=== PATIENT | female | born 1945 | race Two or more races ===

== ENCOUNTER 2016-07-19 10:04 | Emergency (ER) | payer MEDICARE ==
[2016-07-19 10:18] VITALS: BP 137/61
--- NOTE | 2016-07-19 10:50 | ER Document Report ---
ED Skin Rash/Insect Bite/Abscs - General Chief Complaint: Rash Stated Complaint: POSSIBLE RASH Time Seen by Provider: 07/19/16 10:34 Notes: 71 yo female c/o rash under breasts, anticubital areas, inguinal area and lower legs. treated with diflucan and nystatin by urgent care last week, with no improvement TRAVEL OUTSIDE OF THE [place] IN LAST 30 DAYS: No - HPI Patient complains to provider of: Skin rash/lesion Onset: Last week Onset/Duration: Persistent Quality of pain: Burning, Other - itching Severity: Moderate Skin Character: Rash Skin Temperature: Warm Quality of rash: Itchy, Burning Identify cause: No Similar symptoms previously: Yes Recently seen / treated by doctor: Yes - urgent care - Related Data Allergies/Adverse Reactions: No Known Allergies Allergy (Verified 07/19/16 10:07) Past Medical History - General Information source: Patient - Social History Smoking Status: Never Smoker Chew tobacco use (# tins/day): No Frequency of alcohol use: None Drug Abuse: None Lives with: Family Family History: Reviewed & Not Pertinent Patient has suicidal ideation: No Patient has homicidal ideation: No - Past Medical History Cardiac Medical History: Reports: Hx Coronary Artery Disease - HIGH CHOL, Hx Hypercholesterolemia, Hx Hypertension Denies: Hx Heart Attack Pulmonary Medical History: Denies: Hx Asthma, Hx Bronchitis, Hx COPD, Hx Pneumonia Neurological Medical History: Denies: Hx Cerebrovascular Accident, Hx Seizures Endocrine Medical History: Reports: Hx Diabetes Mellitus Type 1, Hx Diabetes Mellitus Type 2 Renal/ Medical History: Denies: Hx Peritoneal Dialysis GI Medical History: Reports: Hx Gastroesophageal Reflux Disease Musculoskeltal Medical History: Reports Hx Arthritis Psychiatric Medical History: Reports: Hx Depression Past Surgical History: Reports: Hx Cardiac Catheterization - stent x1, Hx Section - x3, Hx Coronary Stent, Hx Tubal Ligation. Denies: Hx Hysterectomy - Immunizations Hx Diphtheria, Pertussis, Tetanus Vaccination: Yes - 2009 Hx Pneumococcal Vaccination: 02/26/11 Review of Systems - Review of Systems Constitutional: No symptoms reported EENT: No symptoms reported Cardiovascular: No symptoms reported Respiratory: No symptoms reported Gastrointestinal: No symptoms reported Genitourinary: No symptoms reported Female Genitourinary: No symptoms reported Musculoskeletal: No symptoms reported Skin: No symptoms reported Hematologic/Lymphatic: No symptoms reported Neurological/Psychological: No symptoms reported Physical Exam - Vital signs Vitals: Temp Pulse Resp BP Pulse Ox 98.4 F 93 20 137/61 H 97 07/19/16 10:14 07/19/16 10:14 07/19/16 10:14 07/19/16 10:14 07/19/16 10:14 Interpretation: Normal - General General appearance: Appears well, Alert - HEENT Head: Normocephalic, Atraumatic Eyes: Normal Pupils: PERRL - Respiratory Respiratory status: No respiratory distress Chest status: Nontender Breath sounds: Normal Chest palpation: Normal - Cardiovascular Rhythm: Regular Heart sounds: Normal auscultation Murmur: No - Abdominal Inspection: Normal Distension: No distension Bowel sounds: Normal Tenderness: Nontender Organomegaly: No organomegaly - Back Back: Normal, Nontender - Extremities General upper extremity: Normal inspection, Nontender, Normal color, Normal ROM , Normal temperature General lower extremity: Normal inspection, Nontender, Normal color, Normal ROM , Normal temperature, Normal weight bearing. No: Lauro's sign - Neurological Neuro grossly intact: Yes Cognition: Normal Orientation: AAOx4 Júnior Coma Scale Eye Opening: Spontaneous [place] Coma Scale Verbal: Oriented [place] Coma Scale Motor: Obeys Commands Júnior Coma Scale Total: 15 Speech: Normal Motor strength normal: LUE, RUE, LLE, RLE Sensory: Normal - Psychological Associated symptoms: Normal affect, Normal mood - Skin Skin Temperature: Warm Skin Moisture: Dry Skin Color: Normal Skin irregularity: Rash - bright red maculopapular rash to intertriginal skin under breasts, groin Course - Vital Signs Vital signs: Temp Pulse Resp BP Pulse Ox 98.4 F 93 20 137/61 H 97 07/19/16 10:14 07/19/16 10:14 07/19/16 10:14 07/19/16 10:14 07/19/16 10:14 Discharge - Discharge Clinical Impression: Intertrigo Condition: Stable Disposition: ADMITTED INPATIENT Instructions: Topical Steroid Cream or Ointment ([facility]), Topical Antifungal ([facility]) Additional Instructions: make cool compress with domeboro's solution, apply to affected area x 10 min TID and as needed apply steroid cream after cool compress follow up with primary care if symptoms persist Prescriptions: Calcium Acetate/Aluminum Sulf [Domeboro Packet] 1 each TP BID #30 packet Clotrimazole/Betamethasone Dip [Lotrisone Cream] 1 applic TP BID #45 g
== END 2016-07-19 11:05 | disposition home or self-care (01) ==
LOC: ER 10:04
DX: L30.4 Erythema intertrigo (principal); R21 Rash and other nonspecific skin eruption
CPT/HCPCS: 99284

== ENCOUNTER → 2016-09-05 | Outpatient (CLI) | payer MEDICARE ==
--- NOTE | 2016-09-05 14:55 | WOMENS IMAGING REPORT ---
EXAM DESCRIPTION: 3D SCREENING MAMMO BILAT COMPLETED DATE/TIME: 09/05/2016 2:09 pm REASON FOR STUDY: Z12.31, ROUTINE SCREENING MAMMO (3D) Z12.31 ENCNTR SCREEN MAMMOGRAM FOR MALIGNANT NEOPLASM OF [place] COMPARISON: 01/01/2015 and 12/10/2013. TECHNIQUE: Standard craniocaudal and mediolateral oblique views of each breast recorded using digita l acquisition and breast tomosynthesis. LIMITATIONS: None. FINDINGS: Findings present which are benign by mammographic criteria. No suspicious masses, calcifi cations or architectural distortion. Pertinent benign findings: Stable benign calcifications. Read with the assistance of CAD. .[facility] - R2 Cenova Version 1.3 .[facility] Imaging - R2 Cenova Version 1.3 .[facility] - R2 Cenova Version 2.4 .[facility] [place] [facility] - R2 Cenova Version 2.4 .ON LICENSE OF [facility] - R2 Manager Of Purchasing Version 9.2 Benign mammographic findings may include one or more of the following: Smooth masses, popcorn/rim/co arse calcifications, asymmetries, post-procedure changes, and lesions with long-standing stability. IMPRESSION: BENIGN MAMMOGRAPHIC FINDINGS. BIRADS 2 BREAST DENSITY: b. There are scattered areas of fibroglandular density. BIRAD: 2 BENIGN FINDING(S) RECOMMENDATION: RECOMMENDATION: ROUTINE SCREENING COMMENT: The patient has been notified of the results by letter per SA requirements. Additional no tification policies are in place for contacting patient with suspicious or incomplete findings. Quality ID #[id number]: The [employer] recommends an annual screening mammogram for women aged 40 years or over. This facility utilizes a reminder system to ensure that all patients receive reminder letters, and/or direct phone calls for appointments. This includes reminders for routine scr eening mammograms, diagnostic mammograms, or other Breast Imaging Interventions when appropriate. Th is patient will be placed in the appropriate reminder system. The [employer] (ACR) has developed recommendations for screening MRI of the breast s in certain patient populations, to be used in conjunction with mammography. Breast MRI surveillanc e may be appropriate for women with more than 20% lifetime risk of developing breast cancer as deter mined by genetic testing, significant family history of the disease, or history of mantle radiation f or Hodgkins Disease. ACR Practice Guidelines 2008. DBT Technology DBT is a type of tomographic mammography. With conventional mammography, overlapping breast tissue ma y make lesions difficult to detect, even with good compression. DBT uses an x-ray tube that rotates a round the breast, taking images at different angles. These images are then combined to create thin sl ices of the breast that the radiologist can view as a 3D reconstruction. The [employer] unit can perform full-field digital mammograms (2D imaging); or DBT (3D imaging); or both, in a combination mode that quickly performs both the mammogram and the tomosynthesis scan while the breast is still compressed. PQRS 6045F: Fluoroscopic imaging is not utilized for breast tomosynthesis. TECHNICAL DOCUMENTATION: FINDING NUMBER: (1) ASSESSMENT: (1) JOB ID: [id number] [employer]- All Rights Reserved
== END ==
LOC: WI 10:48
PROVIDERS: ATTEND Obstetrics & Gynecology Gynecology
DX: Z12.31 Encounter for screening mammogram for malignant neoplasm of breast (principal)
CPT/HCPCS: 77063; G0202; 77067

== ENCOUNTER 2016-10-17 13:09 | Emergency (ER) | payer MEDICARE ==
--- NOTE | 2016-10-17 13:55 | ER Document Report ---
ED Medical Screen (RME) - General Chief Complaint: Abdominal Pain Stated Complaint: BACK PAIN Time Seen by Provider: 10/17/16 13:52 Notes: Patient reports severe lower abdominal and rectal pain that started this morning. She denies vomiting. No change in eating habits. No problems with stool or urine. She states she did recently have a uterine biopsy performed approximately 2 weeks ago and had some spotting afterwards but has not had any bledding the last several days. She states she was told the results of the biopsy were normal. TRAVEL OUTSIDE OF THE [place] IN LAST 30 DAYS: No - Related Data Allergies/Adverse Reactions: No Known Allergies Allergy (Verified 10/17/16 13:36) Past Medical History - Social History Frequency of alcohol use: None Drug Abuse: None - Past Medical History Cardiac Medical History: Reports: Hx Coronary Artery Disease - HIGH CHOL, Hx Hypercholesterolemia, Hx Hypertension Denies: Hx Heart Attack Pulmonary Medical History: Denies: Hx Asthma, Hx Bronchitis, Hx COPD, Hx Pneumonia Neurological Medical History: Denies: Hx Cerebrovascular Accident, Hx Seizures Endocrine Medical History: Reports: Hx Diabetes Mellitus Type 1, Hx Diabetes Mellitus Type 2 Renal/ Medical History: Denies: Hx Peritoneal Dialysis GI Medical History: Reports: Hx Gastroesophageal Reflux Disease Musculoskeltal Medical History: Reports Hx Arthritis Psychiatric Medical History: Reports: Hx Depression Past Surgical History: Reports: Hx Cardiac Catheterization - stent x1, Hx Section - x3, Hx Coronary Stent, Hx Tubal Ligation. Denies: Hx Hysterectomy - Immunizations Hx Diphtheria, Pertussis, Tetanus Vaccination: Yes - 2009 Physical Exam - Vital signs Vitals: Temp Pulse BP Pulse Ox 98.4 F 76 132/57 H 95 10/17/16 13:34 10/17/16 13:34 10/17/16 13:34 10/17/16 13:34 Course - Vital Signs Vital signs: Temp Pulse Resp BP Pulse Ox 98.4 F 76 132/57 H 95 10/17/16 13:34 10/17/16 13:34 10/17/16 13:34 10/17/16 13:34
[2016-10-17 14:41] LABS: ABSOLUTE BASOPHILS # (AUTO) 0.1 10^3/uL (0.0-0.2); ABSOLUTE EOSINOPHILS # (AUTO) 0.1 10^3/uL (0.0-0.6); ABSOLUTE LYMPHOCYTES (AUTO) 1.6 10^3/uL (0.5-4.7); ABSOLUTE MONOCYTES (AUTO) 0.7 10^3/uL (0.1-1.4); ABSOLUTE NEUT (AUTO) 5.7 10^3/uL (1.7-8.2); BASOPHILS % (AUTO) 0.6 % (0-2); EOSINOPHILS % (AUTO) 1.6 % (0-6); HEMATOCRIT 37.4 % (36.0-47.0); HEMOGLOBIN 12.4 g/dL (12.0-15.5); HGB HCT DIFFERENCE -0.2; LYMPHOCYTES % (AUTO) 19.3 % (13-45); MEAN CORPUSCULAR HEMOGLOBIN 27.8 pg (27.0-33.4); MEAN CORPUSCULAR HGB CONC 33.1 g/dL (32.0-36.0); MEAN CORPUSCULAR VOLUME 84 fl (80-97); MONOCYTES % (AUTO) 8.9 % (3-13); RED BLOOD COUNT 4.44 10^6/uL (3.72-5.28); RED CELL DISTRIBUTION WIDTH 14.6 % (11.5-14.0); SEGMENTED NEUTROPHILS % (AUTO) 69.6 % (42-78); WHITE BLOOD COUNT 8.2 10^3/uL (4.0-10.5)
[2016-10-17 14:53] LABS: ALANINE AMINOTRANSFERASE 33 U/L (9-52); ALBUMIN 4.2 g/dL (3.5-5.0); ALKALINE PHOSPHATASE 55 U/L (38-126); ANION GAP 10 (5-19); ASPARTATE AMINO TRANSFERASE 42 U/L (14-36); BILIRUBIN,DIRECT 0.4 mg/dL (0.0-0.4); BILIRUBIN,TOTAL 0.4 mg/dL (0.2-1.3); BLOOD UREA NITROGEN 20 mg/dL (7-20); CALCIUM 10.4 mg/dL (8.4-10.2); CARBON DIOXIDE 28 mmol/L (22-30); CHLORIDE 101 mmol/L (98-107); CREATININE RESULT 0.66 mg/dL (0.52-1.25); GLUCOSE 97 mg/dL (75-110); POTASSIUM 4.6 mmol/L (3.6-5.0); SODIUM 139.3 mmol/L (137-145); TOTAL PROTEIN 7.6 g/dL (6.3-8.2)
--- NOTE | 2016-10-17 15:26 | ER Document Report ---
ED GI/ - General Chief Complaint: Abdominal Pain Stated Complaint: BACK PAIN Time Seen by Provider: 10/17/16 13:52 Mode of Arrival: Ambulatory Information source: Patient Notes: Patient is a 71-year-old female who presents to the ER today for lower abdominal pain in the center of her abdomen 1 day and feeling like she has rectal pain as well. Patient denies that it goes around to the back, states that she tried to have a bowel movement today and cannot. She is able to pass gas. She denies fevers, chills, dysuria, hematuria, history of kidney stones, history of constipation. TRAVEL OUTSIDE OF THE [place] IN LAST 30 DAYS: No - Related Data Allergies/Adverse Reactions: No Known Allergies Allergy (Verified 10/17/16 13:36) Past Medical History - General Information source: Patient - Social History Smoking Status: Never Smoker Frequency of alcohol use: None Drug Abuse: None Family History: Reviewed & Not Pertinent Patient has suicidal ideation: No Patient has homicidal ideation: No - Past Medical History Cardiac Medical History: Reports: Hx Coronary Artery Disease - HIGH CHOL, Hx Hypercholesterolemia, Hx Hypertension Denies: Hx Heart Attack Pulmonary Medical History: Denies: Hx Asthma, Hx Bronchitis, Hx COPD, Hx Pneumonia Neurological Medical History: Denies: Hx Cerebrovascular Accident, Hx Seizures Endocrine Medical History: Reports: Hx Diabetes Mellitus Type 1, Hx Diabetes Mellitus Type 2 Renal/ Medical History: Denies: Hx Peritoneal Dialysis GI Medical History: Reports: Hx Gastroesophageal Reflux Disease Musculoskeltal Medical History: Reports Hx Arthritis Psychiatric Medical History: Reports: Hx Depression Past Surgical History: Reports: Hx Cardiac Catheterization - stent x1, Hx Section - x3, Hx Coronary Stent, Hx Tubal Ligation. Denies: Hx Hysterectomy - Immunizations Hx Diphtheria, Pertussis, Tetanus Vaccination: Yes - 2009 Hx Pneumococcal Vaccination: 02/26/11 Review of Systems - Review of Systems Constitutional: No symptoms reported EENT: No symptoms reported Cardiovascular: No symptoms reported Respiratory: No symptoms reported Gastrointestinal: See HPI Genitourinary: No symptoms reported Female Genitourinary: No symptoms reported Musculoskeletal: No symptoms reported Skin: No symptoms reported Hematologic/Lymphatic: No symptoms reported Neurological/Psychological: No symptoms reported Physical Exam - Vital signs Vitals: Temp Pulse BP Pulse Ox 98.4 F 76 132/57 H 95 10/17/16 13:34 10/17/16 13:34 10/17/16 13:34 10/17/16 13:34 - Notes Notes: PHYSICAL EXAMINATION: GENERAL: Well-appearing and in no acute distress. HEAD: Atraumatic, normocephalic. EYES: Pupils equal round and reactive to light, extraocular movements intact, sclera anicteric, conjunctiva are normal. NECK: Normal range of motion, supple without lymphadenopathy LUNGS: CTAB and equal. No wheezes rales or rhonchi. HEART: Regular rate and rhythm without murmurs ABDOMEN: Soft, suprapubic tenderness. No guarding, no rebound BACK: no vertebral tenderness, normal ROM GI/: no CVA tenderness Rectal: Normal tone, stool in rectal vault, no blood EXTREMITIES: Normal range of motion, no pitting edema. No cyanosis. NEUROLOGICAL: Cranial nerves grossly intact. Normal sensory/motor exams. PSYCH: Normal mood, normal affect. SKIN: Warm, Dry, normal turgor, no rashes or lesions noted Course - Re-evaluation Re-evalutation: 10/17/16 18:04 Lab work is unremarkable today except for moderate leukocytes on urinalysis with 10 white blood cells. Will treat patient for UTI. She was given IV Rocephin And fluids here in the emergency department. Patient also has moderate stool in sigmoid colon on CAT scan which was ordered in triage. CAT scan was negative for any other acute pathology. Patient will be sent home with an enema. She said she has had to do this before. - Vital Signs Vital signs: Temp Pulse Resp BP Pulse Ox 98.4 F 76 132/57 H 95 10/17/16 13:34 10/17/16 13:34 10/17/16 13:34 10/17/16 13:34 - Laboratory Result Diagrams: 10/17/16 14:23 10/17/16 14:23 Laboratory results interpreted by me: 10/17/16 10/17/16 10/17/16 14:23 14:23 15:20 RDW 14.6 H Calcium 10.4 H AST 42 H Ur Leukocyte Esterase MODERATE H Discharge - Discharge Clinical Impression: UTI (urinary tract infection) Qualifiers: Urinary tract infection type: site unspecified Hematuria presence: without hematuria Qualified Code(s): N39.0 - Urinary tract infection, site not specified Constipation Qualifiers: Constipation type: unspecified constipation type Qualified Code(s): K59.00 - Constipation, unspecified Condition: Stable Disposition: HOME, SELF-CARE Instructions: Urinary Tract Infection ([facility]) Additional Instructions: YOU HAVE A LOT OF STOOL IN YOUR RECTUM, PLEASE USE ENEMA AT HOME FOR RELIEF. PLEASE TAKE ALL OF YOUR ANTIBIOTICS FOR YOUR UTI! Return immediately for any new or worsening symptoms. Follow up with primary care provider, call tomorrow to make followup appointment. Prescriptions: Cephalexin Monohydrate [Keflex 500 mg Capsule] 500 mg PO BID 7 Days capsule Mineral Oil 133 ml RC ONCE PRN #1 enema PRN Reason: Referrals: ETHEL ALEGRIA MD [Primary Care Provider] - Follow up as needed
[2016-10-17 15:45] LABS: APPEARANCE,URINE SLIGHTLY-CLOUDY; BILIRUBIN,URINE NEGATIVE (NEGATIVE); GLUCOSE, URINE NEGATIVE (NEGATIVE); KETONES,URINE NEGATIVE (NEGATIVE); LEUKOCYTE ESTERASE,URINE MODERATE (NEGATIVE); NITRITE,URINE NEGATIVE (NEGATIVE); PROTEIN,URINE NEGATIVE (NEGATIVE); URINE SPECIFIC GRAVITY 1.012; UROBILINOGEN,URINE NEGATIVE mg/dL (<2.0)
[2016-10-17] MEDS ORDERED: CEFTRIAXONE 1 GM/D5W RTU 1 GM/50 ML RTUPB IV ONE (16:16)
--- NOTE | 2016-10-17 16:59 | RADIOLOGY REPORT (SQ) ---
EXAM DESCRIPTION: CT ABD/PELVIS WITH IV ONLY COMPLETED DATE/TIME: 10/17/2016 4:02 pm REASON FOR STUDY: severe lower abd pain COMPARISON: CT abdomen pelvis 01/13/2008, 10/13/2008, 08/15/2013 TECHNIQUE: CT scan of the abdomen and pelvis performed using helical scanning technique with dynamic intravenous contrast injection. No oral contrast. Images reviewed with lung, soft tissue, and bone windows. Reconstructed coronal and sagittal MPR images reviewed. Delayed images for evaluation of the urinary system also acquired. All images stored on PACS. All CT scanners at this facility use dose modulation, iterative reconstruction, and/or weight based d osing when appropriate to reduce radiation dose to as low as reasonably achievable (ALARA). [facility]: Dose Right [facility]: CareDose [facility]: Dose Right [facility]: Teradose 4D [facility]: Soluble Systems CONTRAST TYPE AND DOSE: contrast/concentration: Isovue 370.00 mg/ml; Total Contrast Delivered: 137.9 ml; Total Saline Delivered: 84.0 ml RENAL FUNCTION: Creatinine 0.66 RADIATION DOSE: Up-to-date CT equipment and radiation dose reduction techniques were employed. CTDIv ol: 9.2 - 13.1 mGy. DLP: 1188 mGy-cm.. LIMITATIONS: No oral contrast FINDINGS: LOWER CHEST: No significant findings. No nodules or infiltrates. LIVER: Normal size. No masses. No dilated ducts. SPLEEN: Normal size. No focal lesions. PANCREAS: No masses. No significant calcifications. No adjacent inflammation or peripancreatic fluid collections. Pancreatic duct not dilated. GALLBLADDER: No identified stones by CT criteria. No inflammatory changes to suggest cholecystitis. ADRENAL GLANDS: No significant masses or asymmetry. RIGHT KIDNEY AND URETER: No solid masses. No significant calcifications. No hydronephrosis or hyd roureter. LEFT KIDNEY AND URETER: No solid masses. No significant calcifications. No hydronephrosis or hydr oureter. AORTA AND VESSELS: Very heavily calcified abdominal aorta and visceral branches. No 0 celiac stenosi s. At least 50% proximal SMA stenosis due to calcific plaque best shown on sagittal images 54-56, an d coronal image 36-41. Inferior mesenteric artery is patent. Very heavy bilateral proximal renal ar funmi calcifications on coronal images 39-41 with greater than 70% bilateral renal artery stenosis sug gested. Spotty atherosclerotic iliac artery calcification without iliac artery stenosis. RETROPERITONEUM: No retroperitoneal adenopathy, hemorrhage or masses. BOWEL AND PERITONEAL CAVITY: No masses or inflammatory changes. No free fluid or peritoneal masses. No free intraperitoneal air or free fluid. Moderate stool throughout the sigmoid colon. APPENDIX: Normal. PELVIS: No mass. No free fluid. Normal bladder. Normal size female pelvic organs ABDOMINAL WALL: Umbilical hernia containing fat, sagittal image 49 BONES: Osteopenia. No wedge compression deformity. Central canal stenosis at L3-4. OTHER: No other significant finding. IMPRESSION: Atherosclerotic change of the abdominal aorta and visceral branches as above. Moderate stool in the sigmoid colon. Other findings as above. TECHNICAL DOCUMENTATION: JOB ID: [id number] Quality ID # [id number]: Final reports with documentation of one or more dose reduction techniques (e.g., Au tomated exposure control, adjustment of the mA and/or kV according to patient size, use of iterative reconstruction technique) 2010 [employer]- All Rights Reserved
[2016-10-17 18:04] VITALS: BP 128/66
== END 2016-10-17 17:45 | disposition home or self-care (01) ==
LOC: ER 13:09
DX: N39.0 Urinary tract infection, site not specified (principal); K59.00 Constipation, unspecified; I25.10 Atherosclerotic heart disease of native coronary artery without angina pectoris; I10 Essential (primary) hypertension; E11.9 Type 2 diabetes mellitus without complications; Z87.19 Personal history of other diseases of the digestive system; Z98.61 Coronary angioplasty status
CPT/HCPCS: 99284; 96365; 36415; 85025; 82272; 80053; 81001; 74177; J0696

== ENCOUNTER 2016-11-25 14:33 | Inpatient (IN) | payer MEDICARE ==
--- NOTE | 2016-11-25 14:49 | ER Document Report ---
ED Respiratory Problem - General Mode of Arrival: Medic Information source: Patient TRAVEL OUTSIDE OF THE [place] IN LAST 30 DAYS: No - HPI Patient complains to provider of: Cough, Short of breath Onset: Other Associated symptoms: Congestion, Cough <NATE GUERRERO - Last Filed: 11/25/16 15:38> <CARLEE GRUBER - Last Filed: 11/25/16 21:49> - General Stated Complaint: DIFFICULTY BREATHING Time Seen by Provider: 11/25/16 14:38 Notes: Patient is a 71-year-old female presenting to the emergency department for shortness of breath. Patient has had 2-3 days of cough and congestion. Patient also reports yellow sputum. EMS reports that the patient had an initial oxygen saturation of 83% on room air. Patient was started on 3 L of oxygen which brought her saturation up to 99%. Patient did not receive any type of breathing treatments or medication. Patient states that she is feeling better now that she is on oxygen. Patient's oxygen saturation was 100% on 2 L of oxygen during the exam. Patient denies any history of dyspnea similar to this in the past. Patient has a history of CAD, cardiac stent, hypertension, hypercholesterolemia, diabetes mellitus, and depression. Patient does not smoke cigarettes. Patient has no known drug allergies. (NATE GUERRERO) - Related Data Allergies/Adverse Reactions: No Known Allergies Allergy (Verified 10/17/16 13:36) Past Medical History - General Information source: Patient - Social History Smoking Status: Never Smoker Cigarette use (# per day): No Chew tobacco use (# tins/day): No Smoking Education Provided: No Frequency of alcohol use: None Drug Abuse: None Family History: None Patient has suicidal ideation: No Patient has homicidal ideation: No - Past Medical History Cardiac Medical History: Reports: Hx Coronary Artery Disease - HIGH CHOL, Hx Hypercholesterolemia, Hx Hypertension Endocrine Medical History: Reports: Hx Diabetes Mellitus Type 2 GI Medical History: Reports: Hx Gastroesophageal Reflux Disease Musculoskeltal Medical History: Reports Hx Arthritis Psychiatric Medical History: Reports: Hx Depression Past Surgical History: Reports: Hx Cardiac Catheterization - stent x1, Hx Section - x3, Hx Coronary Stent, Hx Tubal Ligation - Immunizations Hx Diphtheria, Pertussis, Tetanus Vaccination: Yes - 2009 Hx Pneumococcal Vaccination: 02/26/11 <NATE GUERRERO - Last Filed: 11/25/16 15:38> Review of Systems - Review of Systems Constitutional: See HPI, Fever EENT: See HPI, Nose congestion Cardiovascular: No symptoms reported Respiratory: See HPI, Cough, Short of breath, Sputum Gastrointestinal: No symptoms reported Genitourinary: No symptoms reported Female Genitourinary: No symptoms reported Musculoskeletal: No symptoms reported Skin: No symptoms reported Hematologic/Lymphatic: No symptoms reported Neurological/Psychological: No symptoms reported -: Yes All other systems reviewed and negative <NATE GUERRERO - Last Filed: 11/25/16 15:38> Physical Exam <NATE GUERRERO - Last Filed: 11/25/16 15:38> <CARLEE GRUBER - Last Filed: 11/25/16 21:49> - Vital signs Vitals: Resp Pulse Ox 16 100 11/25/16 14:57 11/25/16 14:57 - Notes Notes: GENERAL: Alert, interacts well. No acute distress. HEAD: Normocephalic, atraumatic. EYES: Appear normal. Pupils equal, round, and reactive to light. ENT: Moist mucus membranes, tongue midline. NECK: Full range of motion. Supple. Trachea midline. LUNGS: Clear to auscultation bilaterally, no wheezes, rales, or rhonchi. 100% oxygen saturation on 2 L nasal cannula. No respiratory distress. HEART: Regular rate and rhythm. No murmurs, gallops, or rubs. ABDOMEN: Obese. Soft, non-tender. Non-distended. Normal bowel sounds. EXTREMITIES: Moves all 4 extremities spontaneously. Normal strength. No peripheral edema. NEUROLOGICAL: Alert and oriented x3. Normal speech. No focal neurological deficits. GCS 15. PSYCH: Normal affect, normal mood. SKIN: Warm, dry, normal turgor. No rashes or lesions noted. (NATE GUERRERO) Course - Laboratory Result Diagrams: 11/25/16 15:14 11/25/16 15:14 <NATE GUERRERO - Last Filed: 11/25/16 15:38> - Laboratory Result Diagrams: 11/25/16 15:14 11/25/16 15:14 - Diagnostic Test Radiology reviewed: Image reviewed, Reports reviewed - Chest x-ray does not show any acute process. CTA of the chest is negative for pulmonary emboli, however it does show airspace opacities in the right middle lobe, right lower lobe, and left lower lobe. There is also fluid within the thoracic esophagus causing consideration of aspiration pneumonitis. - EKG Interpretation by Me EKG shows normal: Sinus rhythm, [place], Intervals, QRS Complexes, ST-T Waves Rate: Normal - 82 Rhythm: NSR Voltage: Consistant with LVH When compared to previous EKG there are: No significant change - Consults Dr. Lazaro Time consulted: 20:20 Consulted provider: will come to ER - Telemetry admission <CARLEE GRUBER - Last Filed: 11/25/16 21:49> - Re-evaluation Re-evalutation: 11/25/16 20:39 I discussed the possibility of aspiration with the patient, and then learned from her that for the last 2-3 days she states she has been unable to swallow fluid or food. BUN was 16 and creatinine was much less than 1. The patient and her spouse are both somewhat vague about when this started, if it was related to eating some solid food that may have caused obstruction. I discussed this at length with the radiologist, we are going to try a modified barium swallow with a small amount of dilute barium with an immediate PA and then a delayed lateral to see if she may have a food bolus or obstructing lesion in the esophagus. (CARLEE GRUBER) - Vital Signs Vital signs: Temp Pulse Resp BP Pulse Ox 98.6 F 79 18 139/54 H 99 11/25/16 20:01 11/25/16 15:00 11/25/16 20:31 11/25/16 20:31 11/25/16 20:31 - Laboratory Laboratory results interpreted by me: 11/25/16 11/25/16 11/25/16 15:14 15:14 15:14 WBC 13.7 H Hgb 11.9 L Hct 35.6 L RDW 14.7 H Seg Neutrophils % 88.6 H Lymphocytes % 5.3 L Absolute Neutrophils 12.1 H D-Dimer 1.74 H Glucose 125 H Direct Bilirubin 0.6 H Discharge <NATE GUERRERO - Last Filed: 11/25/16 15:38> - Discharge Admitting Provider: Hospitalist Unit Admitted: Telemetry <CARLEE GRUBER - Last Filed: 11/25/16 21:49> - Discharge Clinical Impression: Hypoxia Pneumonia Qualifiers: Pneumonia type: due to unspecified organism Laterality: bilateral Lung location : unspecified part of lung Qualified Code(s): J18.9 - Pneumonia, unspecified organism Leukocytosis Qualifiers: Leukocytosis type: unspecified Qualified Code(s): D72.829 - Elevated white blood cell count, unspecified Aspiration pneumonia Qualifiers: Aspiration pneumonia type: unspecified Laterality: bilateral Lung location: unspecified part of lung Qualified Code(s): J69.0 - Pneumonitis due to inhalation of food and vomit Condition: Stable Disposition: ADMITTED INPATIENT Scribe Attestation: 11/25/16 16:54 I personally performed the services described in the documentation, reviewed and edited the documentation which was dictated to the scribe in my presence, and it accurately records my words and actions. (CARLEE GRUBER) Scribe Documentation - Scribe Written by Scribe:: Yvan Giron, 11/25/2016 15:47 acting as scribe for :: Jimena <NATE GUERRERO - Last Filed: 11/25/16 15:38>
--- NOTE | 2016-11-25 15:28 | RADIOLOGY REPORT (SQ) ---
EXAM DESCRIPTION: CHEST SINGLE VIEW COMPLETED DATE/TIME: 11/25/2016 3:14 pm REASON FOR STUDY: cough, congestion, SOB, hypoxia COMPARISON: 01/11/2016 EXAM PARAMETERS: NUMBER OF VIEWS: One view. TECHNIQUE: Single frontal radiographic view of the chest acquired. RADIATION DOSE: NA LIMITATIONS: None. FINDINGS: LUNGS AND PLEURA: No opacities, masses or pneumothorax. No pleural effusion. MEDIASTINUM AND HILAR STRUCTURES: No masses. Contour normal. HEART AND VASCULAR STRUCTURES: Heart normal in size. Normal vasculature. BONES: No acute findings. HARDWARE: None in the chest. OTHER: No other significant finding. IMPRESSION: NO ACUTE RADIOGRAPHIC FINDING IN THE CHEST. TECHNICAL DOCUMENTATION: JOB ID: [id number]
[2016-11-25 15:38] LABS: ABSOLUTE BASOPHILS # (AUTO) 0.1 10^3/uL (0.0-0.2); ABSOLUTE LYMPHOCYTES (AUTO) 0.7 10^3/uL (0.5-4.7); ABSOLUTE MONOCYTES (AUTO) 0.8 10^3/uL (0.1-1.4); ABSOLUTE NEUT (AUTO) 12.1 10^3/uL (1.7-8.2); BASOPHILS % (AUTO) 0.4 % (0-2); EOSINOPHILS % (AUTO) 0.1 % (0-6); HEMATOCRIT 35.6 % (36.0-47.0); HEMOGLOBIN 11.9 g/dL (12.0-15.5); HGB HCT DIFFERENCE 0.1; LYMPHOCYTES % (AUTO) 5.3 % (13-45); MEAN CORPUSCULAR HEMOGLOBIN 27.7 pg (27.0-33.4); MEAN CORPUSCULAR HGB CONC 33.6 g/dL (32.0-36.0); MEAN CORPUSCULAR VOLUME 83 fl (80-97); MONOCYTES % (AUTO) 5.6 % (3-13); RED CELL DISTRIBUTION WIDTH 14.7 % (11.5-14.0); SEGMENTED NEUTROPHILS % (AUTO) 88.6 % (42-78); WHITE BLOOD COUNT 13.7 10^3/uL (4.0-10.5)
[2016-11-25 15:44] LABS: ALANINE AMINOTRANSFERASE 28 U/L (9-52); ALBUMIN 3.7 g/dL (3.5-5.0); ALKALINE PHOSPHATASE 72 U/L (38-126); ANION GAP 9 (5-19); ASPARTATE AMINO TRANSFERASE 31 U/L (14-36); BILIRUBIN,DIRECT 0.6 mg/dL (0.0-0.4); BILIRUBIN,TOTAL 0.8 mg/dL (0.2-1.3); BLOOD UREA NITROGEN 16 mg/dL (7-20); CALCIUM 9.8 mg/dL (8.4-10.2); CARBON DIOXIDE 29 mmol/L (22-30); CHLORIDE 100 mmol/L (98-107); CREATINE KINASE 69 U/L (30-135); CREATININE RESULT 0.61 mg/dL (0.52-1.25); GLUCOSE 125 mg/dL (75-110); SODIUM 137.6 mmol/L (137-145)
--- NOTE | 2016-11-25 16:28 | EKG REPORT ---
SEVERITY:- ABNORMAL ECG - SINUS RHYTHM LEFT VENTRICULAR HYPERTROPHY : Confirmed by: Brenda Velasquez 25-Nov-2016 16:27:56
--- NOTE | 2016-11-25 19:33 | RADIOLOGY REPORT (SQ) ---
EXAM DESCRIPTION: CTA CHEST COMPLETED DATE/TIME: 11/25/2016 7:12 pm REASON FOR STUDY: hypoxia, elevated d-dimer COMPARISON: None. TECHNIQUE: CT scan of the chest performed using helical scanning technique with dynamic intravenous contrast injection. Images reviewed with lung, soft tissue and bone windows. Reconstructed coronal and sagittal MPR images reviewed. Additional 3 dimensional post-processing performed to develop Maximal Intensity Projection images (VA P). All images stored on PACS. All CT scanners at this facility use dose modulation, iterative reconstruction, and/or weight based d osing when appropriate to reduce radiation dose to as low as reasonably achievable (ALARA). [facility]: Dose Right [facility]: CareDose [facility]: Dose Right [facility]: Teradose 4D [facility]: [employer] CONTRAST TYPE AND DOSE: contrast/concentration: Isovue 370.00 mg/ml; Total Contrast Delivered: 65.0 ml; Total Saline Delivered: 80.0 ml Contrast bolus optimized for the pulmonary arteries. Not diagnostic for the aorta. RENAL FUNCTION: BUN 16; creatinine 0.61 RADIATION DOSE: Up-to-date CT equipment and radiation dose reduction techniques were employed. CTDIv ol: 13.2 - 17.4 mGy. DLP: 631 mGy-cm. . LIMITATIONS: None. FINDINGS: LUNGS AND PLEURA: Right middle lobe, right lower lobe, and left lower lobe airspace opacit ies. No pleural effusion. No masses. AORTA AND GREAT VESSELS: No aneurysm. Contrast bolus not optimized for the aorta. HEART: No pericardial effusion. Likely coronary stents. PULMONARY ARTERIES: No emboli visualized in the main pulmonary arteries or the segmental branches. HILAR AND MEDIASTINAL STRUCTURES: No identified masses or abnormal nodes. Incidental note is made of fluid within knee thoracic esophagus. HARDWARE: None in the chest. UPPER ABDOMEN: No significant findings. Limited exam. THYROID AND OTHER SOFT TISSUES: No masses. No adenopathy. BONES: No acute or significant finding. 3D MIPS: Confirm above findings. OTHER: No other significant finding. IMPRESSION: 1. NORMAL CTA OF THE CHEST. NO PULMONARY EMBOLUS. 2. RIGHT MIDDLE LOBE, RIGHT LOWER LOBE, AND LEFT LOWER LOBE AIRSPACE OPACITIES. GIVEN FLUID WITHIN THE THORACIC ESOPHAGUS, CONSIDER ASPIRATION PNEUMONITIS. COMMENT: Quality ID # [id number]: Final reports with documentation of one or more dose reduction techniques (e.g., Automated exposure control, adjustment of the mA and/or kV according to patient size, use of iterative reconstruction technique) TECHNICAL DOCUMENTATION: JOB ID: [id number] [employer]- All Rights Reserved
[2016-11-25] MEDS ORDERED: IPRATROPIUM/ALBUTEROL 0.5-2.5 MG/3 ML AMPUL NEB PRN (20:21)
[2016-11-25] MEDS ORDERED: LEVOFLOXACIN 750 MG/D5W RTU 750 MG/150 ML RTUPB IV ONE (20:22)
[2016-11-25] MEDS ORDERED: LEVOFLOXACIN 750 MG/D5W RTU 750 MG/150 ML RTUPB IV SCH (21:00)
[2016-11-25] MEDS: NORMAL SALINE 1000 ML 1,000 ML IV SCH (22:13)
--- NOTE | 2016-11-25 22:18 | RADIOLOGY REPORT (SQ) ---
EXAM DESCRIPTION: CHEST PA/LAT COMPLETED DATE/TIME: 11/25/2016 10:03 pm REASON FOR STUDY: 50% barium, 1/2 cup, PA immediately after swallow COMPARISON: CT 11/25/2016 EXAM PARAMETERS: NUMBER OF VIEWS: Four views TECHNIQUE: Digital Frontal and Lateral radiographic views of the chest acquired. RADIATION DOSE: NA LIMITATIONS: none FINDINGS: LUNGS AND PLEURA: Known airspace opacities are poorly visualized on the images provided. MEDIASTINUM AND HILAR STRUCTURES: No masses or contour abnormalities. HEART AND VASCULAR STRUCTURES: Heart normal size. No evidence for failure. BONES: No acute findings. HARDWARE: None in the chest. OTHER: Imaging was performed during and after oral ingestion of dilute Gastrografin. The images prov ided demonstrate contrast within the thoracic esophagus on the frontal radiograph which propagates to the stomach on the lateral radiograph. No demonstrated aspiration on the images provided, although the physician (Dr. Hess) confirms at the patient aspirates and coughs with swallowing. IMPRESSION: 1. No demonstrated high-grade esophageal obstruction this very limited exam. 2. Known multi focal airspace opacities better demonstrated on comparison CT imaging are poorly elaina acterized on this series. TECHNICAL DOCUMENTATION: JOB ID: [id number] [email or web address]- All Rights Reserved
[2016-11-25] MEDS: HEPARIN SOD (PORCINE) 5,000 UNIT/ML 1 ML SYRINGE SUBCUT SCH (22:52)
[2016-11-26] MEDS: NORMAL SALINE 1000 ML 1,000 ML IV SCH (00:31)
[2016-11-26] MEDS: IPRATROPIUM/ALBUTEROL 0.5-2.5 MG/3 ML AMPUL NEB SCH ×4 (01:44→20:02)
[2016-11-26] MEDS ORDERED: DEXTROSE 40% GEL 15 GM TUBE PO PRN (02:12)
[2016-11-26] MEDS ORDERED: DEXTROSE 40% GEL 15 GM TUBE X 2 PO PRN (02:12)
[2016-11-26] MEDS ORDERED: DEXTROSE 50%-WATER SYRINGE 12.5 GM/25 ML DOSE IV PRN (02:12)
[2016-11-26] MEDS ORDERED: DEXTROSE 50%-WATER SYRINGE 25 GM/50 ML DOSE IV PRN (02:12)
[2016-11-26] MEDS ORDERED: GLUCAGON,HUMAN RECOMB 1 MG INJ IM PRN (02:12)
[2016-11-26] MEDS ORDERED: INSULIN GLARGINE,HUM.REC.ANLOG 1,000 UNIT/10 ML UNIT SUBCUT SCH ×2 (02:15→22:00)
[2016-11-26 04:49] LABS: ABSOLUTE LYMPHOCYTES (AUTO) 1.1 10^3/uL (0.5-4.7); ABSOLUTE MONOCYTES (AUTO) 0.9 10^3/uL (0.1-1.4); ABSOLUTE NEUT (AUTO) 11.5 10^3/uL (1.7-8.2); BASOPHILS % (AUTO) 0.1 % (0-2); HEMATOCRIT 28.5 % (36.0-47.0); HGB HCT DIFFERENCE 0.6; LYMPHOCYTES % (AUTO) 8.2 % (13-45); MEAN CORPUSCULAR HGB CONC 34.2 g/dL (32.0-36.0); MEAN CORPUSCULAR VOLUME 82 fl (80-97); MONOCYTES % (AUTO) 6.3 % (3-13); RED BLOOD COUNT 3.48 10^6/uL (3.72-5.28); RED CELL DISTRIBUTION WIDTH 14.4 % (11.5-14.0); SEGMENTED NEUTROPHILS % (AUTO) 85.4 % (42-78); WHITE BLOOD COUNT 13.5 10^3/uL (4.0-10.5)
[2016-11-26 05:02] LABS: HEMOGLOBIN 9.7 g/dL (12.0-15.5)
[2016-11-26 05:10] LABS: ANION GAP 8 (5-19); BLOOD UREA NITROGEN 15 mg/dL (7-20); CALCIUM 8.4 mg/dL (8.4-10.2); CARBON DIOXIDE 26 mmol/L (22-30); CHLORIDE 106 mmol/L (98-107); CREATININE RESULT 0.61 mg/dL (0.52-1.25); GLUCOSE 96 mg/dL (75-110); POTASSIUM 3.9 mmol/L (3.6-5.0); SODIUM 139.9 mmol/L (137-145)
[2016-11-26] MEDS ORDERED: NA PHOS,M-B/NA PHOS,DI-BA (ADULT) 133 ML ENEMA PR ONE (05:34)
--- NOTE | 2016-11-26 05:34 | PDOC H&P ---
History of Present Illness Admission Date/PCP: 11/25/16 20:21 NONA RIDER MD Patient complains of: Shortness of breath and cough History of Present Illness: IRMA CASE is a 71 year old female with a past medical history of coronary artery disease, diabetes, hypertension and dyslipidemia who would been her usual state of health until approximately 3 days ago. She complains of difficulty with swallowing both liquids and solids resulting in coughing and shortness of breath. She denies other stroke like symptoms, new medications or previous episode. In the emergency room she is found to be debilitated with leukocytosis and infiltrate in the right middle and lower lobe while imaging reveals fluid in the esophagus. Patient otherwise complains of constipation. She started on empiric antibiotics and from the hospitalist for admission. Denying chest pain or palpitations but has some nausea. Past Medical History Cardiac Medical History: Reports: Coronary Artery Disease - HIGH CHOL, Hyperlipidema, Hypertension Denies: Myocardial Infarction Pulmonary Medical History: Denies: Asthma, Bronchitis, Chronic Obstructive Pulmonary Disease (COPD), Pneumonia Neurological Medical History: Denies: Seizures Endocrine Medical History: Reports: Diabetes Mellitus Type 1, Diabetes Mellitus Type 2 GI Medical History: Reports: Gastroesophageal Reflux Disease Musculoskeltal Medical History: Reports: Arthritis Psychiatric Medical History: Reports: Depression Hematology: Denies: Anemia Past Surgical History Past Surgical History: Reports: Cardiac Catheterization - stent x1, Section - x3, Coronary Stent, Tubal Ligation Denies: Hysterectomy Social History Information Source: Patient Lives with: Spouse/Significant other Smoking Status: Never Smoker Frequency of Alcohol Use: None Drugs: None - Advance Directive Resuscitation Status: Full Code Family History Family History: CAD Parental Family History Reviewed: Yes Children Family History Reviewed: Yes Sibling(s) Family History Reviewed.: Yes Medication/Allergy Home Medications: Aspirin [Ecotrin 325 mg EC Tablet] 1 tab.ec PO DAILY 06/04/13 Benazepril HCl [Lotensin 5 mg Tablet] 5 mg PO DAILY 06/04/13 Fish Oil/Dha/Epa [Fish Oil 1,200 mg Fish Oil] 12,000 mcg PO DAILY 06/04/13 Gabapentin 600 mg PO BID 06/04/13 Insulin Lispro [Humalog] 12 unit SQ AC 06/04/13 Metformin HCl [Glucophage] 500 mg PO BID 06/04/13 Metoprolol Tartrate [Lopressor 50 mg Tablet] 50 mg PO BID 06/04/13 Insulin Glargine,Hum.rec.anlog [Lantus] 50 unit SQ QHS 06/05/14 Atorvastatin Calcium 40 mg PO DAILY 09/27/15 Allergies/Adverse Reactions: No Known Allergies Allergy (Verified 11/25/16 23:23) Review of Systems Constitutional: PRESENT: fatigue, fever(s) Eyes: ABSENT: visual disturbances Ears: ABSENT: hearing changes Cardiovascular: ABSENT: chest pain, dyspnea on exertion, edema, orthropnea, palpitations Respiratory: PRESENT: cough, dyspnea. ABSENT: hemoptysis, sputum Gastrointestinal: ABSENT: abdominal pain, constipation, diarrhea, hematemesis, hematochezia, nausea, vomiting Genitourinary: ABSENT: dysuria, hematuria Musculoskeletal: ABSENT: joint swelling Integumentary: ABSENT: rash, wounds Neurological: ABSENT: abnormal gait, abnormal speech, confusion, dizziness, focal weakness, syncope Psychiatric: ABSENT: anxiety, depression, homidical ideation, suicidal ideation Endocrine: ABSENT: cold intolerance, heat intolerance, polydipsia, polyuria Hematologic/Lymphatic: ABSENT: easy bleeding, easy bruising Physical Exam Vital Signs: Temp Pulse Resp BP Pulse Ox 98.2 F 99 15 112/50 L 100 11/26/16 03:30 11/26/16 03:30 11/26/16 03:30 11/26/16 03:30 11/26/16 03:30 Intake & Output 11/24/16 11/25/16 11/26/16 11:59 11:59 11:59 Intake Total 500 Balance 500 Weight 68.6 kg General appearance: PRESENT: cooperative, mild distress, obese Head exam: PRESENT: atraumatic, normocephalic Eye exam: PRESENT: conjunctiva pink, EOMI, PERRLA. ABSENT: scleral icterus Ear exam: PRESENT: normal external ear exam Mouth exam: PRESENT: moist, tongue midline Neck exam: ABSENT: carotid bruit, JVD, lymphadenopathy, thyromegaly Respiratory exam: PRESENT: crackles, rales, retraction, rhonchi, tachypnea. ABSENT: stridor, symmetrical Cardiovascular exam: PRESENT: RRR. ABSENT: diastolic murmur, rubs, systolic murmur Pulses: PRESENT: normal dorsalis pedis pul Vascular exam: PRESENT: normal capillary refill GI/Abdominal exam: PRESENT: distended, hypoactive bowel sounds, soft. ABSENT: firm, guarding, Suarez's sign, tenderness Rectal exam: PRESENT: deferred Extremities exam: PRESENT: full ROM. ABSENT: calf tenderness, clubbing, pedal edema Neurological exam: PRESENT: alert, awake, oriented to person, oriented to place , oriented to time, oriented to situation, CN II-XII grossly intact. ABSENT: motor sensory deficit Psychiatric exam: PRESENT: appropriate affect, normal mood. ABSENT: homicidal ideation, suicidal ideation Skin exam: PRESENT: dry, intact, warm. ABSENT: cyanosis, rash Results Laboratory Results: 11/26/16 04:16 11/26/16 04:16 11/26/16 11/26/16 04:16 04:16 WBC 13.5 H RBC 3.48 L Hgb 9.7 L D Hct 28.5 L MCV 82 MCH 28.0 MCHC 34.2 RDW 14.4 H Plt Count 185 Seg Neutrophils % 85.4 H Lymphocytes % 8.2 L Monocytes % 6.3 Eosinophils % 0.0 Basophils % 0.1 Absolute Neutrophils 11.5 H Absolute Lymphocytes 1.1 Absolute Monocytes 0.9 Absolute Eosinophils 0.0 Absolute Basophils 0.0 Sodium 139.9 Potassium 3.9 Chloride 106 Carbon Dioxide 26 Anion Gap 8 BUN 15 Creatinine 0.61 Est GFR ( Amer) > 60 Est GFR (Non-Af Amer) > 60 Glucose 96 Calcium 8.4 Impressions: Chest/Abdomen CTA 11/25/16 17:08 IMPRESSION: 1. NORMAL CTA OF THE CHEST. NO PULMONARY EMBOLUS. 2. RIGHT MIDDLE LOBE, RIGHT LOWER LOBE, AND LEFT LOWER LOBE AIRSPACE OPACITIES. GIVEN FLUID WITHIN THE THORACIC ESOPHAGUS, CONSIDER ASPIRATION PNEUMONITIS. Chest X-Ray 11/25/16 20:36 IMPRESSION: 1. No demonstrated high-grade esophageal obstruction this very limited exam. 2. Known multi focal airspace opacities better demonstrated on comparison CT imaging are poorly characterized on this series. Assessment & Plan - Diagnosis (1) Aspiration pneumonia Qualifiers: Aspiration pneumonia type: unspecified Laterality: bilateral Lung location: unspecified part of lung Qualified Code(s): J69.0 - Pneumonitis due to inhalation of food and vomit Is this a current diagnosis for this admission?: Yes Plan: Unclear cause admitted constipation and risk for gastroparesis, no overt symptoms of CVA, pneumonia care set empiric antibiotics initiated, albuterol and Atrovent follow-up blood and sputum culture. Trial Fleet enema and Reglan. Consider speech therapy consult. (2) Diabetes Is this a current diagnosis for this admission?: Yes Plan: Resume home regiment of long-acting insulin at 50% plus sliding scale (3) Hypertension Is this a current diagnosis for this admission?: Yes Plan: Home regiment with as needed hydralazine (4) Constipation Is this a current diagnosis for this admission?: Yes Plan: Fleet enema - Time Time Spent: 50 to 70 Minutes - Inpatient Certification Medical Necessity: Need Close Monitoring Due to Risk of Patient Decompensation
[2016-11-26] MEDS ORDERED: METOCLOPRAMIDE HCL INJ/PF 10 MG/2 ML SDV IV SCH (05:45)
[2016-11-26] MEDS: HEPARIN SOD (PORCINE) 5,000 UNIT/ML 1 ML SYRINGE SUBCUT SCH ×3 (06:05→22:21)
[2016-11-26] MEDS: INSULIN LISPRO 100 UNIT/ML 3 ML VIAL SUBCUT SCH ×2 (09:04→10:44)
[2016-11-26] MEDS: METOPROLOL TARTRATE 50 MG TABLET PO SCH ×2 (09:17→18:35)
[2016-11-26] MEDS ORDERED: OMEGA-3 ACID ETHYL ESTERS 1 GM CAPSULE PO SCH (10:00)
[2016-11-26] MEDS ORDERED: METFORMIN HCL 500 MG TABLET PO SCH (10:00)
[2016-11-26] MEDS ORDERED: NA PHOS,M-B/NA PHOS,DI-BA (ADULT) 133 ML ENEMA PR PRN (10:00)
[2016-11-26] MEDS ORDERED: BENAZEPRIL HCL 5 MG TABLET PO SCH (10:00)
[2016-11-26] MEDS ORDERED: GABAPENTIN 300 MG CAPSULE PO SCH (10:00)
[2016-11-26] MEDS: CEFEPIME 2 GM/D5W RTU 2 GM/50 ML RTUPB IV SCH ×2 (10:01→22:22)
[2016-11-26] MEDS: ATORVASTATIN CALCIUM 40 MG TABLET PO SCH (10:44)
[2016-11-26] MEDS: ASPIRIN 325 MG TABLET, ENT COATED PO SCH (10:44)
--- NOTE | 2016-11-26 11:31 | RADIOLOGY REPORT (SQ) ---
EXAM DESCRIPTION: CT SOFT TISSUE NECK WITHOUT COMPLETED DATE/TIME: 11/26/2016 11:19 am REASON FOR STUDY: Eval for head and neck abscess COMPARISON: None. TECHNIQUE: Noncontrast scanning from skull base through lung apices with review of bone, soft tissue and lung windows. Reconstructed coronal and sagittal MPR images reviewed. All images stored on PAC S. All CT scanners at this facility use dose modulation, iterative reconstruction, and/or weight based d osing when appropriate to reduce radiation dose to as low as reasonably achievable (ALARA). [facility]: Dose Right [facility]: CareDose [facility]: Dose Right [facility]: Teradose 4D [facility]: [employer] RADIATION DOSE: Up-to-date CT equipment and radiation dose reduction techniques were employed. CTDIv ol: 12.4 mGy. DLP: 316 mGy-cm. mGy. LIMITATIONS: Sensitivity for abscess lower without intravenous contrast. FINDINGS: SKULL BASE: Intact. MAJOR SALIVARY GLANDS: No solid or cystic masses. No inflammatory changes. LYMPHADENOPATHY: Mildly enlarged submandibular and anterior triangle nodes. No bulky adenopathy. MUCOSAL MASSES OR ASYMMETRY: No mucosal masses or asymmetry. LARYNX/CORDS: No abnormal findings. LUNG APICES: See recent chest CT. BONES: Intact. THYROID: Normal size. No masses. PARANASAL SINUSES: Clear. OTHER: No other significant finding. IMPRESSION: Mild lymphadenopathy. No abscess identified. TECHNICAL DOCUMENTATION: JOB ID: [id number] Quality ID # [id number]: Final reports with documentation of one or more dose reduction techniques (e.g., Au tomated exposure control, adjustment of the mA and/or kV according to patient size, use of iterative reconstruction technique) 2010 [employer]- All Rights Reserved
[2016-11-26] MEDS: LEVOFLOXACIN 750 MG/D5W RTU 750 MG/150 ML RTUPB IV SCH (12:04)
[2016-11-26] MEDS ORDERED: 1/2 NORMAL SALINE 1,000 ML IV PRN (13:18)
--- NOTE | 2016-11-26 14:30 | PDOC PROGRESS REPORT ---
Subjective Progress Note for:: 11/26/16 Subjective:: The patient is a 71-year-old female with underlying diabetes, hypertension and coronary artery disease. Her diabetes is complicated by neuropathy. She does have a history of a cardiac stent but this was placed years ago and she has not had cardiac difficulty since. Essentially, the patient has been having ear pain for 5 days. She has been having trouble swallowing solids for 1 month. She has odynophagia. She has not noted any fevers, chills or sweats. She has not had any vomiting. She denies hemoptysis, hematemesis, epistaxis, rectal bleeding or melena. Blood cultures were sent from the emergency department. 1 of 2 blood culture bottles is growing gram-negative rods. Review of systems has also been significant for constipation. Imaging studies today show that the patient has fluid in the esophagus. A stat head neck soft tissue CT does not show abscess formation with the patient does have diffuse lymphadenopathy. Physical Exam Vital Signs: Temp Pulse Resp BP Pulse Ox 97.9 F 81 18 102/46 L 100 11/26/16 11:40 11/26/16 11:40 11/26/16 11:40 11/26/16 11:40 11/26/16 11:40 Intake & Output 11/25/16 11/26/16 11/27/16 06:59 06:59 06:59 Intake Total 500 Output Total 2 Balance 498 Weight 68.6 kg Additional comments: The patient appears to be her stated age. Her health appears to be moderately compromised. She does not appear to be toxic. Her cognition is normal. She is able to follow all commands. Her facial appearance is normal. Her lips and mucous membranes are moist. She is edentulous. She was not wearing dentures at the time of my exam. Her neck is supple, but, she does have some tenderness in the posterior cervical chain on the right. The patient's tympanic membrane on the right is somewhat dull but there is no exudative material in the external canal. The patient has minimal wax in the left ear and the tympanic membrane appears to be dull. I do not see any evidence of significant otitis media or externa in either ear. The external ears are normal. The patient's lungs are clear anteriorly. She does have a few rhonchi throughout the right lung posteriorly. Her cardiac exam is regular. I do not appreciate any murmurs , gallops or rubs. The abdomen is obese but soft. Bowel sounds are present. She does not have guarding or rebound noted. There are no hernias or masses. There is no organomegaly. The patient's lower extremities are warm to touch without edema. The skin demonstrates warm and dry skin. There are no lesions, rashes or exudates. Results Laboratory Results: 11/26/16 04:16 11/26/16 04:16 11/26/16 11/26/16 04:16 04:16 WBC 13.5 H RBC 3.48 L Hgb 9.7 L D Hct 28.5 L MCV 82 MCH 28.0 MCHC 34.2 RDW 14.4 H Plt Count 185 Seg Neutrophils % 85.4 H Lymphocytes % 8.2 L Monocytes % 6.3 Eosinophils % 0.0 Basophils % 0.1 Absolute Neutrophils 11.5 H Absolute Lymphocytes 1.1 Absolute Monocytes 0.9 Absolute Eosinophils 0.0 Absolute Basophils 0.0 Sodium 139.9 Potassium 3.9 Chloride 106 Carbon Dioxide 26 Anion Gap 8 BUN 15 Creatinine 0.61 Est GFR ( Amer) > 60 Est GFR (Non-Af Amer) > 60 Glucose 96 Calcium 8.4 Impressions: Chest/Abdomen CTA 11/25/16 17:08 IMPRESSION: 1. NORMAL CTA OF THE CHEST. NO PULMONARY EMBOLUS. 2. RIGHT MIDDLE LOBE, RIGHT LOWER LOBE, AND LEFT LOWER LOBE AIRSPACE OPACITIES. GIVEN FLUID WITHIN THE THORACIC ESOPHAGUS, CONSIDER ASPIRATION PNEUMONITIS. Chest X-Ray 11/25/16 20:36 IMPRESSION: 1. No demonstrated high-grade esophageal obstruction this very limited exam. 2. Known multi focal airspace opacities better demonstrated on comparison CT imaging are poorly characterized on this series. Soft Tissue Neck CT 11/26/16 00:00 IMPRESSION: Mild lymphadenopathy. No abscess identified. Assessment & Plan - Diagnosis (1) Bacteremia Is this a current diagnosis for this admission?: Yes Plan: 1 of 2 blood cultures are growing gram-negative rods. I will continue Levaquin. Cefepime has been added. (2) Odynophagia Is this a current diagnosis for this admission?: Yes Plan: The patient will need GI evaluation for upper endoscopy to look for a stricture , impaction, etc. I am hoping that GI coverage is available tomorrow. She is currently taking her pills. I will start her on a clear liquid diet and try to advance her diet from there. (3) Aspiration pneumonia Qualifiers: Aspiration pneumonia type: unspecified Laterality: bilateral Lung location: unspecified part of lung Qualified Code(s): J69.0 - Pneumonitis due to inhalation of food and vomit Is this a current diagnosis for this admission?: Yes Plan: It is possible that the patient aspirated, however, her therapy right now should cover routine organisms for community-acquired pneumonia. In general, aspiration pneumonia should not be treated with antibiotics unless patients develop worsening hypoxemia, etc. (4) Diabetes Is this a current diagnosis for this admission?: Yes Plan: The patient's metformin will be held. Her long-acting basal insulin will be continued as well as sliding scale. We will hold her mealtime coverage for now. (5) Hypertension Is this a current diagnosis for this admission?: Yes Plan: Due to the potential for sepsis and hypotension I am going to continue the patient's beta-gen, but hold her other antihypertensives. (6) Leukocytosis Qualifiers: Leukocytosis type: unspecified Qualified Code(s): D72.829 - Elevated white blood cell count, unspecified (7) Pneumonia Qualifiers: Pneumonia type: due to unspecified organism Laterality: bilateral Lung location: unspecified part of lung Qualified Code(s): J18.9 - Pneumonia, unspecified organism Is this a current diagnosis for this admission?: Yes Plan: See discussion above. - Time Time Spent with patient: 25-34 minutes - Inpatient Certification Medical Necessity: Significant Comorbidiites Make Outpatient Treatment Too Risky , Need For IV Fluids, Need for IV Antibiotics, Risk of Complication if Not Cared For in Hospital
[2016-11-26] MEDS ORDERED: VANCOMYCIN HCL INJ 1000 MG VIAL IV SCH (17:15)
[2016-11-26] MEDS ORDERED: VANCOMYCIN HCL 1,000 MG in DEXTROSE 5%-WATER 250 ML IV ONE (17:45)
[2016-11-26 18:03] LABS: APPEARANCE,URINE SLIGHTLY-CLOUDY; BILIRUBIN,URINE NEGATIVE (NEGATIVE); GLUCOSE, URINE NEGATIVE (NEGATIVE); KETONES,URINE TRACE mg/dL (NEGATIVE); LEUKOCYTE ESTERASE,URINE MODERATE (NEGATIVE); NITRITE,URINE NEGATIVE (NEGATIVE); PROTEIN,URINE NEGATIVE (NEGATIVE); URINE SPECIFIC GRAVITY 1.023; UROBILINOGEN,URINE NEGATIVE mg/dL (<2.0)
[2016-11-26 18:20] LABS: TROUGH DRAW TIME 1726
[2016-11-26] MEDS ORDERED: VANCOMYCIN HCL INJ 1000 MG VIAL ONE (19:04)
[2016-11-26] MEDS: GABAPENTIN 300 MG CAPSULE PO SCH (22:21)
[2016-11-26] MEDS: INSULIN GLARGINE,HUM.REC.ANLOG 300 UNIT/3 ML INSULN.PEN SUBCUT SCH (22:22)
[2016-11-26] MEDS: ACETAMINOPHEN 325 MG TABLET PO PRN (22:34)
[2016-11-27] MEDS: IPRATROPIUM/ALBUTEROL 0.5-2.5 MG/3 ML AMPUL NEB SCH ×4 (02:02→19:53)
[2016-11-27] MEDS ORDERED: VANCOMYCIN HCL 1,000 MG in DEXTROSE 5%-WATER 250 ML IV ONE (04:00)
[2016-11-27] MEDS ORDERED: VANCOMYCIN HCL INJ 1000 MG VIAL ONE (04:20)
[2016-11-27 05:31] LABS: ABSOLUTE EOSINOPHILS # (AUTO) 0.1 10^3/uL (0.0-0.6); ABSOLUTE MONOCYTES (AUTO) 0.6 10^3/uL (0.1-1.4); ABSOLUTE NEUT (AUTO) 7.5 10^3/uL (1.7-8.2); BASOPHILS % (AUTO) 0.2 % (0-2); EOSINOPHILS % (AUTO) 0.7 % (0-6); HEMATOCRIT 28.6 % (36.0-47.0); HEMOGLOBIN 9.9 g/dL (12.0-15.5); HGB HCT DIFFERENCE 1.1; LYMPHOCYTES % (AUTO) 10.9 % (13-45); MEAN CORPUSCULAR HEMOGLOBIN 28.3 pg (27.0-33.4); MEAN CORPUSCULAR HGB CONC 34.5 g/dL (32.0-36.0); MEAN CORPUSCULAR VOLUME 82 fl (80-97); RED BLOOD COUNT 3.49 10^6/uL (3.72-5.28); RED CELL DISTRIBUTION WIDTH 14.8 % (11.5-14.0); SEGMENTED NEUTROPHILS % (AUTO) 81.2 % (42-78); WHITE BLOOD COUNT 9.2 10^3/uL (4.0-10.5)
[2016-11-27 05:54] LABS: ANION GAP 9 (5-19); BLOOD UREA NITROGEN 15 mg/dL (7-20); CALCIUM 8.3 mg/dL (8.4-10.2); CARBON DIOXIDE 23 mmol/L (22-30); CHLORIDE 108 mmol/L (98-107); CREATININE RESULT 0.56 mg/dL (0.52-1.25); GLUCOSE 76 mg/dL (75-110); MAGNESIUM 1.6 mg/dL (1.6-2.3); POTASSIUM 3.8 mmol/L (3.6-5.0); SODIUM 139.5 mmol/L (137-145)
[2016-11-27] MEDS: HEPARIN SOD (PORCINE) 5,000 UNIT/ML 1 ML SYRINGE SUBCUT SCH ×3 (06:14→22:42)
[2016-11-27] MEDS: GABAPENTIN 300 MG CAPSULE PO SCH ×3 (06:15→22:42)
[2016-11-27] MEDS: ASPIRIN 325 MG TABLET, ENT COATED PO SCH (10:02)
[2016-11-27] MEDS: METOPROLOL TARTRATE 50 MG TABLET PO SCH ×2 (10:02→22:42)
[2016-11-27] MEDS: ATORVASTATIN CALCIUM 40 MG TABLET PO SCH (10:02)
[2016-11-27] MEDS: MAGNESIUM SULFATE/D5W 1 GM/100 ML RTUPB IV SCH ×4 (10:02→17:11)
[2016-11-27] MEDS ORDERED: ONDANSETRON HCL INJ/PF 4 MG/2 ML SDV ONE (10:42)
[2016-11-27] MEDS ORDERED: DIPHENHYDRAMINE HCL 50 MG/ML VIAL ONE (10:42)
[2016-11-27] MEDS ORDERED: NALOXONE HCL INJ/PF 0.4 MG/1 ML SDV ONE (10:42)
[2016-11-27] MEDS ORDERED: FLUMAZENIL INJ 0.5 MG/5 ML VIAL ONE (10:43)
[2016-11-27] MEDS ORDERED: FENTANYL CITRATE INJ/PF 100 MCG/2 ML AMPUL ONE (10:43)
[2016-11-27] MEDS ORDERED: MIDAZOLAM 2 MG/2 ML INJ ONE (10:43)
[2016-11-27] MEDS ORDERED: GLUCAGON,HUMAN RECOMB 1 MG INJ ONE (10:44)
[2016-11-27] MEDS ORDERED: EPINEPHRINE INJ 1 MG/10 ML DISP.SYRIN ONE (10:44)
[2016-11-27] MEDS: CEFEPIME 2 GM/D5W RTU 2 GM/50 ML RTUPB IV SCH (11:03)
[2016-11-27] MEDS ORDERED: VANCOMYCIN HCL 1,000 MG in DEXTROSE 5%-WATER 250 ML IV SCH (12:00)
--- NOTE | 2016-11-27 12:26 | Operative Report ---
Operative Report DATE OF SURGERY: 11/27/16 Operative Report: The risks benefits and alternatives of the procedure explained to the patient in detail and informed consent is obtained.A GIF Olympus video scope was inserted into the patient's mouth and hypopharynx, the esophagus is identified intubated and insufflated, the scope was then advanced through the esophagus stomach and duodenum, retroflexion maneuver is done ,the esophagus stomach and first and second portions of the duodenum examined PREOPERATIVE DIAGNOSIS: Abnormal CT scan. Subjective complaints of dysphagia and odynophagia POSTOPERATIVE DIAGNOSIS: Distal esophagitis. Gastritis status post biopsy rule out Helicobacter pylori. Duodenitis. Esophagus looks grossly normal OPERATION: EGD with biopsy SURGEON: JITENDRA NEVES ANESTHESIA: Moderate Sedation - 25 mcg of fentanyl, 2 mg of Versed. Conscious sedation monitoring time 30 minutes. TISSUE REMOVED OR ALTERED: As noted above. COMPLICATIONS: None. ESTIMATED BLOOD LOSS: None. INTRAOPERATIVE FINDINGS: Normal esophagus. Normal peristalsis observed. No distal stricture noted. PROCEDURE: Patient tolerated procedure well. No immediate postprocedure complications are noted. Patient sent back to her room in good condition. Resume diet and advance as tolerated. Resume previous activity level We will wait on biopsies. Further recommendations to follow.
--- NOTE | 2016-11-27 12:46 | PDOC CONSULTATION ---
Consultation Consult Date: 11/26/16 Attending physician:: JITENDRA NEVES Consult reason:: patient has complaints of dysphagia to solids and liquids. has complaints of odynophagia. abnormal CT scan of the esophagus showing possible fluid level History of Present Illness Admission Date/PCP: 11/25/16 20:21 NONA RIDER MD History of Present Illness: patient has been admitted by the Hospitalist service patient has complaints of dysphagia and odynophagia her dysphagia is to solids and liquids patient does have GERD patient may have had aspiration pneumonia she had a CT scan that showed a possible fluid level in the esophagus GI consult is requested for an EGD to be performed for better clarification of the finding patient does admit to weight loss she does have exposure to secondary smoke , her does smoke Past Medical History Cardiac Medical History: Reports: Coronary Artery Disease - HIGH CHOL, Hyperlipidema, Hypertension Denies: Myocardial Infarction Pulmonary Medical History: Denies: Asthma, Bronchitis, Chronic Obstructive Pulmonary Disease (COPD), Pneumonia Neurological Medical History: Denies: Seizures Endocrine Medical History: Reports: Diabetes Mellitus Type 1, Diabetes Mellitus Type 2 GI Medical History: Reports: Gastroesophageal Reflux Disease Musculoskeltal Medical History: Reports: Arthritis Psychiatric Medical History: Reports: Depression Hematology: Denies: Anemia Past Surgical History Past Surgical History: Reports: Cardiac Catheterization - stent x1, Section - x3, Coronary Stent, Tubal Ligation Denies: Hysterectomy Social History Lives with: Spouse/Significant other Smoking Status: Never Smoker Frequency of Alcohol Use: None Drugs: None - Advance Directive Resuscitation Status: Full Code Family History Family History: CAD Parental Family History Reviewed: Yes Children Family History Reviewed: Unknown Sibling(s) Family History Reviewed.: Unknown Medication/Allergy Home Medications: Aspirin [Ecotrin 325 mg EC Tablet] 325 mg PO DAILY 11/26/16 Atorvastatin Calcium [Lipitor 40 mg Tablet] 40 mg PO QHS 11/26/16 Benazepril HCl [Lotensin 5 mg Tablet] 5 mg PO DAILY 11/26/16 Fenofibrate Nanocrystallized [Tricor 48 mg Tablet] 48 mg PO DAILY 11/26/16 Gabapentin [Neurontin 300 mg Capsule] 300 mg PO Q8 11/26/16 Hydrochlorothiazide [Hydrodiuril 12.5 mg Capsule] 12.5 mg PO DAILY 11/26/16 Insulin Aspart [Novolog Flexpen] 12 unit SUBCUT AC 11/26/16 Insulin Glargine,Hum.rec.anlog [Lantus Insulin 100 Unit/1 ml 10 ml] 50 unit SUBCUT QHS 11/26/16 Metformin HCl [Glucophage 500 mg Tablet] 500 mg PO BIDACBS 11/26/16 Metoprolol Tartrate [Lopressor 50 mg Tablet] 50 mg PO Q12 11/26/16 Neomy Sulf/Polymyx B Sulf/Hc [Cortisporin Ear Suspension] 3 drop RT_EAR DAILY [place]-3/Dha/Epa/Fish Oil [Fish Oil 1,000 mg Softgel] 1 each PO DAILY 11/26/16 Sertraline HCl [Zoloft] 150 mg PO DAILY 11/26/16 Allergies/Adverse Reactions: No Known Allergies Allergy (Verified 11/25/16 23:23) Review of Systems Constitutional: ABSENT: fever(s), headache(s), weakness Eyes: ABSENT: visual disturbances Ears: ABSENT: hearing changes Nose, Mouth, and Throat: ABSENT: mouth pain, sore throat Cardiovascular: PRESENT: orthropnea. ABSENT: chest pain, edema, palpitations Respiratory: PRESENT: dyspnea. ABSENT: hemoptysis Gastrointestinal: PRESENT: dysphagia, heartburn. ABSENT: coffee ground emesis, diarrhea, hematemesis, hematochezia Genitourinary: ABSENT: dysuria, hematuria Musculoskeletal: ABSENT: deformity, joint swelling Integumentary: ABSENT: lesions, pruritus Endocrine: ABSENT: polydipsia, polyphagia, polyuria Hematologic/Lymphatic: ABSENT: easy bruising Physical Exam Vital Signs: Temp Pulse Resp BP Pulse Ox 98.1 F 98 20 127/72 H 92 11/27/16 11:18 11/27/16 12:14 11/27/16 12:14 11/27/16 12:14 11/27/16 12:14 Intake & Output 11/26/16 11/27/16 11/28/16 06:59 06:59 06:59 Intake Total 500 983 50 Output Total 2 Balance 498 983 50 Weight 68.6 kg 61.7 kg General appearance: PRESENT: mild distress, well-developed, well-nourished Head exam: PRESENT: normocephalic Eye exam: PRESENT: EOMI, PERRLA. ABSENT: nystagmus, periorbital swelling, scleral icterus Mouth exam: PRESENT: moist, neck supple Throat exam: ABSENT: tonsillar exudate, tonsillogmegaly Neck exam: ABSENT: meningismus, tenderness, thyromegaly Respiratory exam: PRESENT: symmetrical, tachypnea. ABSENT: chest wall tenderness, wheezes Cardiovascular exam: PRESENT: RRR, +S1, +S2 Pulses: PRESENT: normal carotid pulses GI/Abdominal exam: PRESENT: soft. ABSENT: Suarez's sign, rebound, rigid, tenderness Extremities exam: ABSENT: joint swelling Musculoskeletal exam: PRESENT: full ROM Neurological exam: PRESENT: oriented to time, oriented to situation, reflexes normal, CN II-XII grossly intact Psychiatric exam: PRESENT: appropriate affect Skin exam: PRESENT: normal color. ABSENT: mottled, pallor, urticaria, vesicles Results Laboratory Results: 11/27/16 04:42 11/27/16 04:42 11/26/16 11/27/16 11/27/16 17:30 04:42 04:42 WBC 9.2 RBC 3.49 L Hgb 9.9 L Hct 28.6 L MCV 82 MCH 28.3 MCHC 34.5 RDW 14.8 H Plt Count 189 Seg Neutrophils % 81.2 H Lymphocytes % 10.9 L Monocytes % 7.0 Eosinophils % 0.7 Basophils % 0.2 Absolute Neutrophils 7.5 Absolute Lymphocytes 1.0 Absolute Monocytes 0.6 Absolute Eosinophils 0.1 Absolute Basophils 0.0 Sodium 139.5 Potassium 3.8 Chloride 108 H Carbon Dioxide 23 Anion Gap 9 BUN 15 Creatinine 0.56 Est GFR ( Amer) > 60 Est GFR (Non-Af Amer) > 60 Glucose 76 Calcium 8.3 L Magnesium 1.6 Urine Color YELLOW Urine Appearance SLIGHTLY-CLOUDY Urine pH 5.0 Ur Specific [place] 1.023 Urine Protein NEGATIVE Urine Glucose (UA) NEGATIVE Urine Ketones TRACE H Urine Blood NEGATIVE Urine Nitrite NEGATIVE Ur Leukocyte Esterase MODERATE H Ur Squamous Epith Cells FEW Impressions: Chest/Abdomen CTA 11/25/16 17:08 IMPRESSION: 1. NORMAL CTA OF THE CHEST. NO PULMONARY EMBOLUS. 2. RIGHT MIDDLE LOBE, RIGHT LOWER LOBE, AND LEFT LOWER LOBE AIRSPACE OPACITIES. GIVEN FLUID WITHIN THE THORACIC ESOPHAGUS, CONSIDER ASPIRATION PNEUMONITIS. Chest X-Ray 11/25/16 20:36 IMPRESSION: 1. No demonstrated high-grade esophageal obstruction this very limited exam. 2. Known multi focal airspace opacities better demonstrated on comparison CT imaging are poorly characterized on this series. Soft Tissue Neck CT 11/26/16 00:00 IMPRESSION: Mild lymphadenopathy. No abscess identified. Assessment & Plan - Diagnosis (1) Dysphagia Plan: patient does have dysphagia to both solids and liquids also has complaints of odynophagia CT scan showing possible abnormality although could be just due to poor motility will need EGD to rule out for possible stricture, mass, possible Schatzki's ring Risks, benefits and alternatives are discussed with the patient in detail she is willing to proceed if negative, will need strict aspiration precautions when patient is allowed to resume oral intake. - Time Time Spent: 50 to 70 Minutes
--- NOTE | 2016-11-27 14:38 | PDOC PROGRESS REPORT ---
Subjective Progress Note for:: 11/27/16 Subjective:: The patient is a 71-year-old female with underlying diabetes, hypertension and coronary artery disease. Her diabetes is complicated by neuropathy. She does have a history of a cardiac stent but this was placed years ago and she has not had cardiac difficulty since. 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 She has been having trouble swallowing solids for 1 month. She has odynophagia. She has not noted any fevers, chills or sweats. She has not had any vomiting. She denies hemoptysis, hematemesis, epistaxis, rectal bleeding or melena. Blood cultures were sent from the emergency department. 1 of 2 blood culture bottles is growing gram-negative rods. She also is growing GPC. Review of systems has also been significant for constipation. Imaging studies today show that the patient has fluid in the esophagus. A stat head neck soft tissue CT does not show abscess formation with the patient does have diffuse lymphadenopathy. Imaging of the chest demonstrates infiltrates consistent with pneumonia. Overnight the patient did have some shortness of breath associated with chest tightness that resolved after a nebulizer treatment. Secondary to odynophagia with difficulty with both liquids and solids the patient was taken to endoscopy today. Essentially, the esophagus was normal but there was mild distal esophagitis, gastritis and duodenitis. Biopsies were taken to look for Helicobacter pylori. Physical Exam Vital Signs: Temp Pulse Resp BP Pulse Ox 99.4 F 81 20 128/58 H 97 11/27/16 13:43 11/27/16 14:18 11/27/16 14:18 11/27/16 13:43 11/27/16 14:18 Intake & Output 11/26/16 11/27/16 11/28/16 06:59 06:59 06:59 Intake Total 500 983 50 Output Total 2 Balance 498 983 50 Weight 68.6 kg 61.7 kg Additional comments: Today, the patient looked much better than upon presentation. She appeared to be listless upon admission but now appears to have improved strength. Her cognition and mentation are normal. The patient's lips and mouth is normal. She is edentulous. Her external ear exam is normal. Her neck is supple. She continues to have some pain over the right neck which is along with the posterior auricular lymph node chain. This is stable. The patient's lungs demonstrate no wheezing, but, she does have rhonchi primarily in the right posterior lung field. This is similar to yesterday. The cardiac exam demonstrates a regular rate and rhythm. The abdomen is soft and flat. Bowel sounds are present in all 4 quadrants. The patient has no guarding or rebound noted and there are no hernias or masses noted. The extremities are warm to touch without edema. Skin is warm dry and intact without lesions or rashes. Results Laboratory Results: 11/27/16 04:42 11/27/16 04:42 11/26/16 11/27/16 11/27/16 17:30 04:42 04:42 WBC 9.2 RBC 3.49 L Hgb 9.9 L Hct 28.6 L MCV 82 MCH 28.3 MCHC 34.5 RDW 14.8 H Plt Count 189 Seg Neutrophils % 81.2 H Lymphocytes % 10.9 L Monocytes % 7.0 Eosinophils % 0.7 Basophils % 0.2 Absolute Neutrophils 7.5 Absolute Lymphocytes 1.0 Absolute Monocytes 0.6 Absolute Eosinophils 0.1 Absolute Basophils 0.0 Sodium 139.5 Potassium 3.8 Chloride 108 H Carbon Dioxide 23 Anion Gap 9 BUN 15 Creatinine 0.56 Est GFR ( Amer) > 60 Est GFR (Non-Af Amer) > 60 Glucose 76 Calcium 8.3 L Magnesium 1.6 Urine Color YELLOW Urine Appearance SLIGHTLY-CLOUDY Urine pH 5.0 Ur Specific [place] 1.023 Urine Protein NEGATIVE Urine Glucose (UA) NEGATIVE Urine Ketones TRACE H Urine Blood NEGATIVE Urine Nitrite NEGATIVE Ur Leukocyte Esterase MODERATE H Ur Squamous Epith Cells FEW Impressions: Chest/Abdomen CTA 11/25/16 17:08 IMPRESSION: 1. NORMAL CTA OF THE CHEST. NO PULMONARY EMBOLUS. 2. RIGHT MIDDLE LOBE, RIGHT LOWER LOBE, AND LEFT LOWER LOBE AIRSPACE OPACITIES. GIVEN FLUID WITHIN THE THORACIC ESOPHAGUS, CONSIDER ASPIRATION PNEUMONITIS. Chest X-Ray 11/25/16 20:36 IMPRESSION: 1. No demonstrated high-grade esophageal obstruction this very limited exam. 2. Known multi focal airspace opacities better demonstrated on comparison CT imaging are poorly characterized on this series. Soft Tissue Neck CT 11/26/16 00:00 IMPRESSION: Mild lymphadenopathy. No abscess identified. Assessment & Plan - Diagnosis (1) Bacteremia Is this a current diagnosis for this admission?: Yes Plan: 1 of 2 blood cultures are growing gram-negative rods. She is also growing gram- positive cocci. I will continue Levaquin. Cefepime has been added morning of 11/26/16. Vancomycin was started evening of 11/26/2016. (2) Odynophagia Is this a current diagnosis for this admission?: Yes Plan: The patient had upper endoscopy today. Essentially, the esophagus was normal without stricture, webbing, mass. There was evidence of mild distal esophagitis , gastritis and duodenitis. Biopsies were taken to evaluate for Helicobacter pylori. The patient will be started on proton pump inhibitor therapy. I will slowly advance the patient's diet. She did tolerate liquids and I will try full liquids followed by soft mechanical diet. Speech therapy has been consulted. Their recommendations are pending at this time. (3) Aspiration pneumonia Qualifiers: Aspiration pneumonia type: unspecified Laterality: bilateral Lung location: unspecified part of lung Qualified Code(s): J69.0 - Pneumonitis due to inhalation of food and vomit Is this a current diagnosis for this admission?: Yes Plan: It is possible that the patient aspirated, however, her therapy right now should cover routine organisms for community-acquired pneumonia. In general, aspiration pneumonia should not be treated with antibiotics unless patients develop worsening hypoxemia, etc. patient is currently receiving IV antibiotics consisting of Levaquin, cefepime and vancomycin. (4) Diabetes Is this a current diagnosis for this admission?: Yes Plan: The patient's metformin will be held. Her long-acting basal insulin will be continued as well as sliding scale. We will hold her mealtime coverage for now. (5) Hypertension Is this a current diagnosis for this admission?: Yes Plan: Due to the potential for sepsis and hypotension I am going to continue the patient's beta-gen, but hold her other antihypertensives. (6) Leukocytosis Qualifiers: Leukocytosis type: unspecified Qualified Code(s): D72.829 - Elevated white blood cell count, unspecified Is this a current diagnosis for this admission?: Yes Plan: Leukocytosis is resolved at this time. (7) Pneumonia Qualifiers: Pneumonia type: due to unspecified organism Laterality: bilateral Lung location: unspecified part of lung Qualified Code(s): J18.9 - Pneumonia, unspecified organism Is this a current diagnosis for this admission?: Yes Plan: See discussion above. (8) Anemia Is this a current diagnosis for this admission?: Yes Plan: Anemia panel will be ordered today.
[2016-11-27] MEDS ORDERED: IPRATROPIUM/ALBUTEROL 0.5-2.5 MG/3 ML AMPUL NEB PRN (15:00)
[2016-11-27] MEDS ORDERED: LANSOPRAZOLE 30 MG TAB.RAP.DR PO ONE (15:00)
[2016-11-27] MEDS: INSULIN LISPRO 100 UNIT/ML 3 ML VIAL SUBCUT PRN ×2 (17:11→22:50)
--- NOTE | 2016-11-27 17:57 | Progress Note ---
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 She does have an elderly dog at home but gives no history of an animal bite. I will switch her to to Kae and tazobactam. This may have better efficacy although the infection should be covered by both the Levaquin and the cefepime.
[2016-11-27] MEDS: PIPERACILLIN SODIUM/TAZOBACTAM 3.375 GM in NORMAL SALINE 100 ML IV SCH (21:27)
[2016-11-27] MEDS: INSULIN GLARGINE,HUM.REC.ANLOG 300 UNIT/3 ML INSULN.PEN SUBCUT SCH (22:42)
[2016-11-27] MEDS: ACETAMINOPHEN 325 MG TABLET PO PRN (23:21)
[2016-11-28] MEDS: IPRATROPIUM/ALBUTEROL 0.5-2.5 MG/3 ML AMPUL NEB SCH ×4 (01:53→19:34)
[2016-11-28] MEDS: PIPERACILLIN SODIUM/TAZOBACTAM 3.375 GM in NORMAL SALINE 100 ML IV SCH ×4 (03:13→22:08)
[2016-11-28] MEDS: LANSOPRAZOLE 30 MG TAB.RAP.DR PO SCH ×2 (05:55→17:38)
[2016-11-28] MEDS: HEPARIN SOD (PORCINE) 5,000 UNIT/ML 1 ML SYRINGE SUBCUT SCH ×3 (05:55→22:09)
[2016-11-28] MEDS: GABAPENTIN 300 MG CAPSULE PO SCH ×3 (05:55→22:09)
[2016-11-28 06:00] LABS: ABSOLUTE LYMPHOCYTES (AUTO) 0.8 10^3/uL (0.5-4.7); ABSOLUTE MONOCYTES (AUTO) 0.8 10^3/uL (0.1-1.4); ABSOLUTE NEUT (AUTO) 9.8 10^3/uL (1.7-8.2); BASOPHILS % (AUTO) 0.3 % (0-2); HEMATOCRIT 30.8 % (36.0-47.0); HEMOGLOBIN 10.4 g/dL (12.0-15.5); HGB HCT DIFFERENCE 0.4; LYMPHOCYTES % (AUTO) 7.1 % (13-45); MEAN CORPUSCULAR HEMOGLOBIN 27.8 pg (27.0-33.4); MEAN CORPUSCULAR HGB CONC 33.8 g/dL (32.0-36.0); MEAN CORPUSCULAR VOLUME 82 fl (80-97); MONOCYTES % (AUTO) 6.7 % (3-13); RED BLOOD COUNT 3.75 10^6/uL (3.72-5.28); RED CELL DISTRIBUTION WIDTH 14.7 % (11.5-14.0); SEGMENTED NEUTROPHILS % (AUTO) 85.9 % (42-78); WHITE BLOOD COUNT 11.4 10^3/uL (4.0-10.5)
[2016-11-28] MEDS ORDERED: VANCOMYCIN HCL 500 MG in DEXTROSE 5%-WATER 100 ML IV ONE (06:00)
[2016-11-28 06:13] LABS: ANION GAP 10 (5-19); BLOOD UREA NITROGEN 16 mg/dL (7-20); CALCIUM 8.8 mg/dL (8.4-10.2); CARBON DIOXIDE 26 mmol/L (22-30); CHLORIDE 102 mmol/L (98-107); CREATININE RESULT 0.65 mg/dL (0.52-1.25); GLUCOSE 196 mg/dL (75-110); MAGNESIUM 2.8 mg/dL (1.6-2.3); POTASSIUM 5.1 mmol/L (3.6-5.0); SODIUM 138.2 mmol/L (137-145)
[2016-11-28 07:26] LABS: FOLATE > 20.00 ng/mL (>2.76)
[2016-11-28] MEDS: ATORVASTATIN CALCIUM 40 MG TABLET PO SCH (09:56)
[2016-11-28] MEDS: ASPIRIN 325 MG TABLET, ENT COATED PO SCH (09:57)
[2016-11-28] MEDS: METOPROLOL TARTRATE 50 MG TABLET PO SCH ×2 (09:57→22:09)
[2016-11-28] MEDS: LEVOFLOXACIN 750 MG/D5W RTU 750 MG/150 ML RTUPB IV SCH (12:26)
[2016-11-28] MEDS: INSULIN LISPRO 100 UNIT/ML 3 ML VIAL SUBCUT PRN ×3 (15:04→22:08)
[2016-11-28 15:07] LABS: THYROID STIMULATING HORMONE 1.81 uIU/mL (0.47-4.68)
--- NOTE | 2016-11-28 17:05 | PDOC PROGRESS REPORT ---
Subjective Progress Note for:: 11/28/16 Subjective:: Patient states that she was bit on her right index finger by her pet boxer. Later on during the day patient complained of chest pain EKG was obtained as well as troponins. Physical Exam Vital Signs: Temp Pulse Resp BP Pulse Ox 97.7 F 103 H 17 119/58 L 91 L 11/28/16 15:28 11/28/16 15:28 11/28/16 15:28 11/28/16 15:28 11/28/16 15:28 Intake & Output 11/27/16 11/28/16 11/29/16 06:59 06:59 06:59 Intake Total 983 2325 748 Output Total 300 100 Balance 983 2025 648 Weight 61.7 kg 61.7 kg General appearance: PRESENT: no acute distress, well-developed, well-nourished Head exam: PRESENT: atraumatic, normocephalic Eye exam: PRESENT: conjunctiva pink, EOMI. ABSENT: scleral icterus Ear exam: PRESENT: normal external ear exam Mouth exam: PRESENT: moist, tongue midline Neck exam: ABSENT: carotid bruit, JVD, lymphadenopathy, thyromegaly Respiratory exam: PRESENT: clear to auscultation park. ABSENT: rales, rhonchi, wheezes Cardiovascular exam: PRESENT: RRR. ABSENT: diastolic murmur, rubs, systolic murmur Pulses: PRESENT: normal dorsalis pedis pul Vascular exam: PRESENT: normal capillary refill GI/Abdominal exam: PRESENT: normal bowel sounds, soft. ABSENT: distended, guarding, mass, organolmegaly, rebound, tenderness Rectal exam: PRESENT: deferred Extremities exam: PRESENT: full ROM. ABSENT: calf tenderness, clubbing, pedal edema Musculoskeletal exam: PRESENT: full ROM Neurological exam: PRESENT: alert, awake, oriented to person, oriented to place , oriented to time. ABSENT: motor sensory deficit Psychiatric exam: PRESENT: appropriate affect, normal mood. ABSENT: homicidal ideation, suicidal ideation Skin exam: PRESENT: dry, intact, warm. ABSENT: cyanosis, rash Results Laboratory Results: 11/28/16 05:04 11/28/16 05:04 11/28/16 11/28/16 11/28/16 05:04 05:04 13:56 WBC 11.4 H RBC 3.75 Hgb 10.4 L Hct 30.8 L MCV 82 MCH 27.8 MCHC 33.8 RDW 14.7 H Plt Count 240 Seg Neutrophils % 85.9 H Lymphocytes % 7.1 L Monocytes % 6.7 Eosinophils % 0.0 Basophils % 0.3 Absolute Neutrophils 9.8 H Absolute Lymphocytes 0.8 Absolute Monocytes 0.8 Absolute Eosinophils 0.0 Absolute Basophils 0.0 Retic Count (auto) 0.92 Absolute Retic 0.034 Sodium 138.2 Potassium 5.1 H Chloride 102 Carbon Dioxide 26 Anion Gap 10 BUN 16 Creatinine 0.65 Est GFR ( Amer) > 60 Est GFR (Non-Af Amer) > 60 Glucose 196 H Calcium 8.8 Magnesium 2.8 H Iron 22.7 L TIBC 253 % Saturation 9 Ferritin 177.00 Vitamin B12 > 1000.0 H Folate > 20.00 TSH 1.81 Free T4 1.62 11/26/16 17:30 Clean Catch Midstream Urine Culture - Final NO GROWTH 2 DAYS Impressions: Chest/Abdomen CTA 11/25/16 17:08 IMPRESSION: 1. NORMAL CTA OF THE CHEST. NO PULMONARY EMBOLUS. 2. RIGHT MIDDLE LOBE, RIGHT LOWER LOBE, AND LEFT LOWER LOBE AIRSPACE OPACITIES. GIVEN FLUID WITHIN THE THORACIC ESOPHAGUS, CONSIDER ASPIRATION PNEUMONITIS. Chest X-Ray 11/25/16 20:36 IMPRESSION: 1. No demonstrated high-grade esophageal obstruction this very limited exam. 2. Known multi focal airspace opacities better demonstrated on comparison CT imaging are poorly characterized on this series. Soft Tissue Neck CT 11/26/16 00:00 IMPRESSION: Mild lymphadenopathy. No abscess identified. 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 (4) Dysphagia Is this a current diagnosis for this admission?: Yes Plan: Secondary to gastritis: We will continue PPI (5) Hypertension Is this a current diagnosis for this admission?: Yes Plan: Continue current medication. (6) Leukocytosis Qualifiers: Leukocytosis type: unspecified Qualified Code(s): D72.829 - Elevated white blood cell count, unspecified Is this a current diagnosis for this admission?: Yes (7) Odynophagia Is this a current diagnosis for this admission?: Yes Plan: Secondary to gastritis: PPI - Time Time Spent with patient: 25-34 minutes
[2016-11-28] MEDS ORDERED: VANCOMYCIN HCL 500 MG in DEXTROSE 5%-WATER 100 ML IV SCH (18:00)
--- NOTE | 2016-11-28 18:16 | EKG REPORT ---
SEVERITY:- ABNORMAL ECG - ATRIAL FIBRILLATION BORDERLINE LEFT AXIS DEVIATION PROBABLE ANTEROSEPTAL INFARCT, AGE INDETERM BORDERLINE PROLONGED QT INTERVAL : Confirmed by: Molly Gama MD 28-Nov-2016 18:15:32
--- NOTE | 2016-11-28 19:37 | XCELERA REPORT ---
[address] [address] Transthoracic Echocardiogram Report Name: IRMA CASE Age: 71 yrs Gender: Female : 1945 Patient Status: Inpatient Patient Location: [address] [place], [place] [id number] Study Date: 11/28/2016 02:44 PM Height: 59 in Weight: 136 lb BSA: 1.6 m2 Procedure: A complete two-dimensional transthoracic echocardiogram was performed (2D, M-mode, spectral and color flow Doppler). The study was technically difficult with many images being suboptimal in quality. Reason For Study: atrial fibrillation Ordering Physician: LEVI PARSONS Performed By: Robyn Barerra Interpretation Summary LV EF is 35% The study was technically difficult with many images being suboptimal in quality. Left ventricular systolic function is moderately reduced. There is mild concentric left ventricular hypertrophy. Doppler measurements suggest reversible restrictive left ventricular relaxation, which is associated with grade III/IV or moderate diastolic dysfunction There is mid to distal anterior wall akinesis There is apical wall akinesis The left ventricle is grossly normal size. The right ventricular systolic function is normal. The left atrium is mildly dilated. The right atrium is normal in size There is a moderate amount of mitral regurgitation There is no mitral valve stenosis. There is a mild amount of aortic regurgitation There is no aortic valve stenosis There is a mild amount of tricuspid regurgitation There is mild to moderate pulmonary hypertension by echo Right ventricular systolic pressure is estimated to be elevated at 40- 50mmHg. The inferior vena cava appeared normal and decreased < 50% with respiration (RAP 10-15 mmHg) There is no pericardial effusion. MMode/2D Measurements & Calculations RVDd: 3.0 cm LVIDd: 4.5 cm FS: 17.7 % Ao root diam: 2.3 cm IVSd: 1.0 cm LVIDs: 3.7 cm EDV(Teich): 91.7 ml LVPWd: 0.98 cm ESV(Teich): 57.8 ml Ao root area: 4.2 cm2 EF(Teich): 36.9 % LA dimension: 4.0 cm Doppler Measurements & Calculations MV E max obie: MV P1/2t max obie: Ao V2 max: AI max obie: 121.9 cm/sec 122.9 cm/sec 109.3 cm/sec 410.2 cm/sec MV A max obie: MV P1/2t: 46.4 msec Ao max PG: AI max P.6 cm/sec 4.8 mmHg 67.3 mmHg MV E/A: 1.2 MVA(P1/2t): 4.7 cm2 AI dec slope: MV dec slope: 775.7 cm/sec2 308.7 cm/sec2 MV dec time: AI P1/2t: 0.14 sec 389.3 msec LV V1 max PG: PA V2 max: TR max obie: 2.6 mmHg 70.6 cm/sec 311.7 cm/sec LV V1 max: PA max P.0 mmHg TR max P.9 cm/sec 38.9 mmHg Left Ventricle The left ventricle is grossly normal size. There is mild concentric left ventricular hypertrophy. Left ventricular systolic function is moderately reduced. LV EF is 35%. Doppler measurements suggest reversible restrictive left ventricular relaxation, which is associated with grade III/IV or moderate diastolic dysfunction. There is mid to distal anterior wall akinesis. There is apical wall akinesis. Right Ventricle The right ventricle is grossly normal size. There is normal right ventricular wall thickness. The right ventricular systolic function is normal. Atria The right atrium is normal in size. The left atrium is mildly dilated. Interarterial septum not well visualized and not well dopplered. Cannot comment on ASD/PFO presence. Mitral Valve The mitral valve leaflets are sclerotic and show some degree of functional abnormality. There is no mitral valve stenosis. There is a moderate amount of mitral regurgitation. Aortic Valve The aortic valve is not well visualized secondary to technical limitations. There is no aortic valve stenosis. There is a mild amount of aortic regurgitation. Tricuspid Valve The tricuspid valve is not well visualized secondary to technical limitations. There is no tricuspid stenosis. There is a mild amount of tricuspid regurgitation. There is mild to moderate pulmonary hypertension by echo. Right ventricular systolic pressure is estimated to be elevated at 40-50mmHg. Pulmonic Valve The pulmonic valve is not well visualized. Great Vessels The aortic root is not well visualized. The inferior vena cava appeared normal and decreased < 50% with respiration (RAP 10-15 mmHg). Effusions There is no pericardial effusion. : LEVI PARSONS > Brenda Velasquez
[2016-11-28] MEDS: INSULIN GLARGINE,HUM.REC.ANLOG 300 UNIT/3 ML INSULN.PEN SUBCUT SCH (22:08)
[2016-11-29] MEDS: IPRATROPIUM/ALBUTEROL 0.5-2.5 MG/3 ML AMPUL NEB SCH ×3 (01:48→13:41)
[2016-11-29] MEDS: PIPERACILLIN SODIUM/TAZOBACTAM 3.375 GM in NORMAL SALINE 100 ML IV SCH ×3 (03:33→14:37)
[2016-11-29] MEDS: LANSOPRAZOLE 30 MG TAB.RAP.DR PO SCH (06:01)
[2016-11-29] MEDS: HEPARIN SOD (PORCINE) 5,000 UNIT/ML 1 ML SYRINGE SUBCUT SCH (06:01)
[2016-11-29] MEDS: GABAPENTIN 300 MG CAPSULE PO SCH ×2 (06:01→14:30)
[2016-11-29 06:15] LABS: HEMATOCRIT 28.4 % (36.0-47.0); HEMOGLOBIN 9.7 g/dL (12.0-15.5); HGB HCT DIFFERENCE 0.7; MEAN CORPUSCULAR HEMOGLOBIN 27.8 pg (27.0-33.4); MEAN CORPUSCULAR VOLUME 82 fl (80-97); RED BLOOD COUNT 3.47 10^6/uL (3.72-5.28); RED CELL DISTRIBUTION WIDTH 14.6 % (11.5-14.0)
[2016-11-29 06:28] LABS: ANION GAP 11 (5-19); BLOOD UREA NITROGEN 21 mg/dL (7-20); CALCIUM 8.3 mg/dL (8.4-10.2); CARBON DIOXIDE 24 mmol/L (22-30); CHLORIDE 99 mmol/L (98-107); GLUCOSE 171 mg/dL (75-110); MAGNESIUM 2.4 mg/dL (1.6-2.3); SODIUM 133.7 mmol/L (137-145)
[2016-11-29 07:01] LABS: BAND NEUTROPHILS % (MANUAL) 1 % (3-5); BASOPHILS % (MANUAL) 0 % (0-2); EOSINOPHILS % (MANUAL) 0 % (0-6); LYMPHOCYTES % (MANUAL) 10 % (13-45); TOTAL CELLS COUNTED 100
[2016-11-29 07:05] LABS: ANISOCYTOSIS SLIGHT; OVALOCYTES SLIGHT; POIKILOCYTOSIS SLIGHT; POLYCHROMASIA SLIGHT; SCHISTOCYTES SLIGHT; TOXIC GRANULATION SLIGHT
[2016-11-29] MEDS ORDERED: HEPARIN SODIUM,PORCINE/D5W 25,000 UNIT/250 ML RTUINJ IV PRN (09:41)
[2016-11-29] MEDS ORDERED: HEPARIN SOD (PORCINE) 1,000 UNIT/ML 10 ML VIAL IV PRN (09:41)
[2016-11-29] MEDS ORDERED: HEPARIN SOD (PORCINE) 1,000 UNIT/ML 10 ML VIAL IV ONE (10:00)
[2016-11-29 10:05] LABS: HEMATOCRIT 29.3 % (36.0-47.0); HGB HCT DIFFERENCE 0.7; MEAN CORPUSCULAR HEMOGLOBIN 27.8 pg (27.0-33.4); MEAN CORPUSCULAR VOLUME 82 fl (80-97); PROTHROMBIN TIME 16.5 SEC (11.4-15.4); RED BLOOD COUNT 3.58 10^6/uL (3.72-5.28); RED CELL DISTRIBUTION WIDTH 14.6 % (11.5-14.0); WHITE BLOOD COUNT 10.8 10^3/uL (4.0-10.5)
[2016-11-29 10:06] LABS: PARTIAL THROMBOPLASTIN TIME 34.7 SEC (23.5-35.8)
[2016-11-29] MEDS ORDERED: FUROSEMIDE INJ/PF 40 MG/4 ML SDV IV ONE ×2 (10:15→12:05)
[2016-11-29 10:33] LABS: BASOPHILS % (MANUAL) 0 % (0-2); EOSINOPHILS % (MANUAL) 0 % (0-6); LYMPHOCYTES % (MANUAL) 11 % (13-45); TOTAL CELLS COUNTED 100
[2016-11-29 10:36] LABS: ANISOCYTOSIS SLIGHT; TOXIC GRANULATION 1+; TOXIC VACUOLATION PRESENT
[2016-11-29 10:37] LABS: OVALOCYTES 1+; POLYCHROMASIA SLIGHT
[2016-11-29] MEDS: METOPROLOL TARTRATE 50 MG TABLET PO SCH (10:47)
[2016-11-29] MEDS: ASPIRIN 325 MG TABLET, ENT COATED PO SCH (10:48)
[2016-11-29] MEDS: ATORVASTATIN CALCIUM 40 MG TABLET PO SCH (10:48)
[2016-11-29] MEDS ORDERED: LISINOPRIL 10 MG TABLET PO ONE (12:16)
[2016-11-29] MEDS ORDERED: NITROGLYCERIN 0.4 MG/TAB 25 TAB/BOTTLE SL PRN (12:19)
--- NOTE | 2016-11-29 12:25 | PDOC TRANSFER SUMMARY ---
General Admission Date/PCP: 11/25/16 20:21 NONA RIDER MD Resuscitation Status: Full Code - Transfer Diagnosis (1) Acute respiratory failure with hypoxia Is this a current diagnosis for this admission?: Yes Diagnosis Summary: Secondary to acute systolic congestive heart failure complicated by moderate pulmonary hypertension: Patient is currently being diuresed. Patient will have received 80 mg of IV Lasix today. Patient currently on BiPAP FiO2 of 60 14/6. (2) NSTEMI (non-ST elevated myocardial infarction) Is this a current diagnosis for this admission?: Yes Diagnosis Summary: Patient's 2D echo demonstrates an EF of 35% and moderate pulmonary hypertension. Patient's troponin was found to be 4.09 this a.m. contacted [facility] for transfer to their facility for cardiac cath and Dr. Arnie Rae has accepted the patient. Heparin drip. (3) Acute systolic (congestive) heart failure Is this a current diagnosis for this admission?: Yes Diagnosis Summary: Patient given 80 mg total of IV Lasix (4) Prolonged Q-T interval on ECG Is this a current diagnosis for this admission?: Yes Diagnosis Summary: Patient had been on Levaquin yesterday however this has been discontinued. 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 (7) Diabetes Is this a current diagnosis for this admission?: Yes Diagnosis Summary: Continue SSI (8) Dysphagia Is this a current diagnosis for this admission?: Yes Diagnosis Summary: Patient had EGD done in our facility that demonstrated normal exam. Patient will need to see speech therapy for further evaluation. (9) Hypertension Is this a current diagnosis for this admission?: Yes Diagnosis Summary: We will continue lisinopril and Metoprolol. (10) Leukocytosis Is this a current diagnosis for this admission?: Yes Diagnosis Summary: Secondary to Pasteurella and aspiration pneumonia: Resolving (11) Dog bite Is this a current diagnosis for this admission?: Yes Diagnosis Summary: Resulting in Pasteurella bacteremia: Patient currently on Zosyn. Patient's blood culture did demonstrate staph hominis and staph epidermidis most likely representing contamination. (12) Moderate to severe pulmonary hypertension Is this a current diagnosis for this admission?: Yes Diagnosis Summary: We will continue with BiPAP and diuresis - Transfer Medications Home Medications: Aspirin [Ecotrin 325 mg EC Tablet] 325 mg PO DAILY 11/26/16 Atorvastatin Calcium [Lipitor 40 mg Tablet] 40 mg PO QHS 11/26/16 Benazepril HCl [Lotensin 5 mg Tablet] 5 mg PO DAILY 11/26/16 Fenofibrate Nanocrystallized [Tricor 48 mg Tablet] 48 mg PO DAILY 11/26/16 Gabapentin [Neurontin 300 mg Capsule] 300 mg PO Q8 11/26/16 Hydrochlorothiazide [Hydrodiuril 12.5 mg Capsule] 12.5 mg PO DAILY 11/26/16 Insulin Aspart [Novolog Flexpen] 12 unit SUBCUT AC 11/26/16 Insulin Glargine,Hum.rec.anlog [Lantus Insulin 100 Unit/1 ml 10 ml] 50 unit SUBCUT QHS 11/26/16 Metformin HCl [Glucophage 500 mg Tablet] 500 mg PO BIDACBS 11/26/16 Metoprolol Tartrate [Lopressor 50 mg Tablet] 50 mg PO Q12 11/26/16 Neomy Sulf/Polymyx B Sulf/Hc [Cortisporin Ear Suspension] 3 drop RT_EAR DAILY Lovely-3/Dha/Epa/Fish Oil [Fish Oil 1,000 mg Softgel] 1 each PO DAILY 11/26/16 Sertraline HCl [Zoloft] 150 mg PO DAILY 11/26/16 Transfer Medications: Current Medications Acetaminophen (Tylenol 325 Mg Tablet) 650 mg PO Q4HP PRN PRN Reason: pain or temp greater than 101F Stop: 12/25/16 20:20 Last Admin: 11/27/16 23:21 Dose: 650 mg Albuterol/Ipratropium (Duoneb 3 Ml Ampul) 3 ml NEB RTQ6 J CARLOS Stop: 12/25/16 20:29 Last Admin: 11/29/16 07:40 Dose: 3 ml Albuterol/Ipratropium (Duoneb 3 Ml Ampul) 3 ml NEB [id number] PRN PRN Reason: WHEEZING/SOB Stop: 12/25/16 20:20 Aspirin (Ecotrin 325 Mg Ec Tablet) 325 mg PO DAILY J CARLOS Stop: 12/26/16 09:59 Last Admin: 11/29/16 10:48 Dose: 325 mg Atorvastatin Calcium (Lipitor 40 Mg Tablet) 40 mg PO DAILY J CARLOS Stop: 12/26/16 09:59 Last Admin: 11/29/16 10:48 Dose: 40 mg Dextrose (Dextrose Inj 50% Syringe (25 Gm/50 Ml)) 12.5 gm IV PRN PRN; Protocol PRN Reason: FOR BG 50-69 IN ALERT PATIENT Stop: 12/26/16 02:11 Dextrose (Dextrose Inj 50% Syringe (25 Gm/50 Ml)) 25 gm IV PRN PRN PRN Reason: Protocol Stop: 12/26/16 02:11 Gabapentin (Neurontin 300 Mg Capsule) 300 mg PO Q8 J CARLOS Stop: 12/26/16 09:59 Last Admin: 11/29/16 06:01 Dose: 300 mg Glucagon (Glucagen Inj 1 Mg Vial) 1 mg IM PRN PRN; Protocol PRN Reason: EVALUATE FOR BG < 70 Stop: 12/26/16 02:11 Glucose (Glutose 40% Gel 15 Gm Tube) 15 gm PO PRN PRN; Protocol PRN Reason: FOR BG 50-69 IN ALERT PATIENT Stop: 12/26/16 02:11 Glucose (Glutose 40% Gel 15 Gm Tube) 30 gm PO PRN PRN; Protocol PRN Reason: FOR BG < 50 IN ALERT PATIENT Stop: 12/26/16 02:11 Heparin Sodium (Porcine) (Heparin Inj 5,000 Units/Ml 1 Ml Syringe) 5,000 unit SUBCUT Q8 J CARLOS Stop: 12/25/16 21:59 Last Admin: 11/29/16 06:01 Dose: 5,000 unit Heparin Sodium (Porcine) (Heparin Inj 1,000 Unit/Ml 10 Ml Vial) 0 - 12,000 unit IV .BOLUS PER PROTOCOL PRN; Protocol PRN Reason: RESPOND TO aPTT VALUE Stop: 12/29/16 09:40 Piperacillin Sod/Tazobactam (Sod 3.375 gm/ Sodium Chloride) 100 mls @ 200 mls/ hr IV Q6A [facility] Stop: 12/04/16 20:59 Last Admin: 11/29/16 08:48 Dose: 3.375 gm Heparin Sodium/Dextrose (Heparin Rtu 25,000 Unit/250 Ml D5w Premix) 25,000 unit in 250 mls @ 0 mls/hr IV CONTINUOUS PRN; Protocol; Titrate PRN Reason: THIS MED IS NOT "PRN" Stop: 12/29/16 09:40 Insulin Glargine (Lantus Insulin Inj 300 Unit/3 Ml Pen) 50 unit SUBCUT QHS J CARLOS Stop: 12/26/16 21:59 Last Admin: 11/28/16 22:08 Dose: 50 unit Insulin Human Lispro (Humalog Insulin 100 Unit/1 Ml 3 Ml Vial) 0 - 12 unit SUBCUT ACHSP PRN PRN Reason: Protocol Stop: 12/26/16 02:11 Last Admin: 11/28/16 22:08 Dose: 6 unit Lansoprazole (Prevacid 30 Mg Odt Tablet) 30 mg PO BID@0600,1700 J CARLOS Stop: 12/28/16 05:59 Last Admin: 11/29/16 06:01 Dose: 30 mg Metoprolol Tartrate (Lopressor 50 Mg Tablet) 50 mg PO Q12 J CARLOS Stop: 12/26/16 09:59 Last Admin: 11/29/16 10:47 Dose: 50 mg Sodium Biphosphate/Sodium Phosphate (Fleet Enema (Adult) 133 Ml) 133 ml [place] Q12HP PRN PRN Reason: CONSTIPATION Stop: 12/26/16 09:59 Sodium Chloride (Saline Flush 2.5 Ml Monoject Prefil Syrin) 2.5 ml IV Q8 J CARLOS Stop: 12/25/16 21:59 Last Admin: 11/29/16 06:01 Dose: Not Given - Allergies Allergies/Adverse Reactions: No Known Allergies Allergy (Verified 11/25/16 23:23) - Diet/Activity Discharge Diet: Clear Liquids Discharge Activity: Bedrest Hospital Course Hospital Course: Patient is a 71-year-old female who presented to our facility with complaint of shortness of breath and cough. Patient had a CT of the chest due to an abnormal d-dimer which demonstrated no evidence of PE but did show evidence consistent with aspiration pneumonia affecting the right middle lobe right lower lobe. Patient was placed on broad antibiotic treatment. During that time blood cultures were obtained which demonstrated growth for Pasteurella. Patient was questioned about being bitten by a pad at home and patient stated that her boxer that her a few days ago. Patient complained of difficulty swallowing and patient had EGD that was normal. Patient has history of CONSUELO however noncompliant with CPAP but was requested to wear during hospitalization several times. Patient had complained of chest discomfort and first troponin was negative however repeat troponin was found to be 4.09. Patient had had a 2D echo that demonstrated an EF of 35%. Patient also developed acute hypoxic respiratory failure most likely secondary to acute systolic congestive heart failure exacerbation complicated by moderate pulmonary hypertension. Patient was placed on Lasix and diuresed. Patient is currently on BiPAP and tolerating well. Call was placed divided for transfer due to patient needing advanced cardiology assistance and Dr. Arnie Rae accepted patient. Physical Exam Vital Signs: Temp Pulse Resp BP Pulse Ox 97.3 F 108 H 25 H 174/86 H 92 11/29/16 09:55 11/29/16 09:55 11/29/16 11:25 11/29/16 09:55 11/29/16 11:25 Intake & Output 11/28/16 11/29/16 11/30/16 06:59 06:59 06:59 Intake Total 2325 1988 Output Total 300 550 Balance 2024 143 Weight 61.7 kg 61.8 kg General appearance: PRESENT: mild distress, thin, other - Appears older than stated age Head exam: PRESENT: atraumatic, normocephalic Eye exam: PRESENT: conjunctiva pink, EOMI. ABSENT: scleral icterus Ear exam: PRESENT: normal external ear exam Mouth exam: PRESENT: moist, tongue midline Neck exam: ABSENT: carotid bruit, JVD, lymphadenopathy, thyromegaly Respiratory exam: PRESENT: other - Crackles heard bilaterally, fair air movement , patient sitting on side of bed Cardiovascular exam: PRESENT: RRR. ABSENT: diastolic murmur, rubs, systolic murmur Pulses: PRESENT: normal dorsalis pedis pul Vascular exam: PRESENT: normal capillary refill GI/Abdominal exam: PRESENT: normal bowel sounds, soft. ABSENT: distended, guarding, mass, organolmegaly, rebound, tenderness Rectal exam: PRESENT: deferred Extremities exam: PRESENT: full ROM. ABSENT: calf tenderness, clubbing, pedal edema Neurological exam: PRESENT: alert, awake, oriented to person, oriented to place , oriented to time, oriented to situation, CN II-XII grossly intact. ABSENT: motor sensory deficit Psychiatric exam: PRESENT: appropriate affect, normal mood. ABSENT: homicidal ideation, suicidal ideation Skin exam: PRESENT: dry, intact, warm. ABSENT: cyanosis, rash Results Laboratory Results: 11/29/16 09:38 11/29/16 05:55 11/28/16 11/28/16 11/29/16 05:04 13:56 05:45 WBC RBC Hgb Hct MCV MCH MCHC RDW Plt Count Seg Neutrophils % Lymphocytes % Monocytes % Eosinophils % Basophils % Absolute Neutrophils Absolute Lymphocytes Absolute Monocytes Absolute Eosinophils Absolute Basophils Sodium Potassium Chloride Carbon Dioxide Anion Gap BUN Creatinine Cancelled Est GFR ( Amer) Cancelled Est GFR (Non-Af Amer) Cancelled Glucose Calcium Magnesium Transferrin 185 L TSH 1.81 Free T4 1.62 11/29/16 11/29/16 11/29/16 05:55 05:55 09:38 WBC 10.0 10.8 H RBC 3.47 L 3.58 L Hgb 9.7 L 10.0 L Hct 28.4 L 29.3 L MCV 82 82 MCH 27.8 27.8 MCHC 34.0 34.0 RDW 14.6 H 14.6 H Plt Count 250 247 Seg Neutrophils % Not Reportable Not Reportable Lymphocytes % Not Reportable Not Reportable Monocytes % Not Reportable Not Reportable Eosinophils % Not Reportable Not Reportable Basophils % Not Reportable Not Reportable Absolute Neutrophils Not Reportable Not Reportable Absolute Lymphocytes Not Reportable Not Reportable Absolute Monocytes Not Reportable Not Reportable Absolute Eosinophils Not Reportable Not Reportable Absolute Basophils Not Reportable Not Reportable Sodium 133.7 L Potassium 4.0 Chloride 99 Carbon Dioxide 24 Anion Gap 11 BUN 21 H Creatinine 0.70 Est GFR ( Amer) > 60 Est GFR (Non-Af Amer) > 60 Glucose 171 H Calcium 8.3 L Magnesium 2.4 H Transferrin TSH Free T4 11/26/16 17:30 Clean Catch Midstream Urine Culture - Final NO GROWTH 2 DAYS 11/29/16 11/29/16 08:20 09:38 Troponin I Cancelled 4.150 Impressions: Chest/Abdomen CTA 11/25/16 17:08 IMPRESSION: 1. NORMAL CTA OF THE CHEST. NO PULMONARY EMBOLUS. 2. RIGHT MIDDLE LOBE, RIGHT LOWER LOBE, AND LEFT LOWER LOBE AIRSPACE OPACITIES. GIVEN FLUID WITHIN THE THORACIC ESOPHAGUS, CONSIDER ASPIRATION PNEUMONITIS. Chest X-Ray 11/25/16 20:36 IMPRESSION: 1. No demonstrated high-grade esophageal obstruction this very limited exam. 2. Known multi focal airspace opacities better demonstrated on comparison CT imaging are poorly characterized on this series. Soft Tissue Neck CT 11/26/16 00:00 IMPRESSION: Mild lymphadenopathy. No abscess identified.
[2016-11-29 13:32] VITALS: BP 135/73
[2016-11-29 13:34] LABS: ARTERIAL BLOOD BASE EXCESS -2.6 mmol/L
[2016-11-29] MEDS ORDERED: ONDANSETRON ODT 4 MG TAB (6 TAB/DSPK) PO PRN (13:41)
[2016-11-29] MEDS ORDERED: ONDANSETRON 4 MG TAB.RAPDIS PO PRN (13:59)
[2016-11-29 14:27] LABS: APPEARANCE,URINE CLEAR; BILIRUBIN,URINE NEGATIVE (NEGATIVE); GLUCOSE, URINE NEGATIVE (NEGATIVE); KETONES,URINE NEGATIVE (NEGATIVE); LEUKOCYTE ESTERASE,URINE NEGATIVE (NEGATIVE); NITRITE,URINE NEGATIVE (NEGATIVE); PROTEIN,URINE NEGATIVE (NEGATIVE); URINE SPECIFIC GRAVITY 1.008; UROBILINOGEN,URINE NEGATIVE mg/dL (<2.0)
--- NOTE | 2016-11-29 14:29 | RADIOLOGY REPORT (SQ) ---
EXAM DESCRIPTION: CHEST SINGLE VIEW COMPLETED DATE/TIME: 11/29/2016 2:21 pm REASON FOR STUDY: central line placement COMPARISON: 11/25/2016. NUMBER OF VIEWS: One view. TECHNIQUE: Single frontal radiographic view of the chest acquired. LIMITATIONS: None. FINDINGS: LUNGS AND PLEURA: Patchy diffuse pulmonary infiltrates bilaterally. Low lung volumes. Pr obable small effusions. No pneumothorax. MEDIASTINUM AND HILAR STRUCTURES: Grossly stable. HEART AND VASCULAR STRUCTURES: Grossly stable. BONES: No acute findings. HARDWARE: Right subclavian line courses superiorly into the neck, presumably within the jugular. OTHER: No other significant finding. IMPRESSION: 1. Diffuse pulmonary infiltrates/ edema bilaterally. 2. Abnormal right subclavian cent ral line. Tip not seen, but this courses cranially presumably up into the jugular vein. No pneumoth orax. TECHNICAL DOCUMENTATION: JOB ID: [id number] [employer]- All Rights Reserved
[2016-11-29] MEDS ORDERED: FUROSEMIDE 40 MG TABLET PO ONE (14:30)
[2016-11-29] MEDS ORDERED: LISINOPRIL 5 MG TABLET PO ONE (15:00)
--- NOTE | 2016-11-29 15:17 | OPERATIVE REPORT E ---
Operative Report NAME: IRMA CASE : 1945 AGE: 71Y DATE OF SURGERY: 11/29/2016 ROOM: 314 PREOPERATIVE DIAGNOSIS: Poor veins for IV access and patient for possible transfer to [facility] for acute coronary syndrome. POSTOPERATIVE DIAGNOSIS: Poor veins for IV access and patient for possible transfer to [facility] for acute coronary syndrome. PROCEDURE: Insertion of triple lumen catheter. SURGEON: SHARLENE JOLLY M.D. ANESTHESIA: Local. DESCRIPTION OF PROCEDURE: The patient was placed in supine position and the left neck and upper chest were then prepped and draped in the usual sterile fashion. Local anesthesia infiltrated at the left infraclavicular area and this point, patient was placed in Trendelenburg position. The left subclavian vein was then punctured and a guidewire passed through the presumed superior vena cava. Puncture site was then enlarged and dilated. Next, a triple lumen catheter was inserted through the guidewire up to a distance of about 15 cm. Next, 3 ports then aspirated blood easily and injected saline easily. Next, the catheter was anchored to the skin with 3-0 silk. A Biopatch was placed at the insertion site and a transparent dressing placed. A chest x-ray will be obtained post placement. Patient tolerated the procedure well. DICTATING PHYSICIAN: SHARLENE JOLLY M.D. [id number] PHY#: [id number] ID: [id number] JOB#: [id number] ACCT: [id number] cc:SHARLENE JOLLY M.D. >
--- NOTE | 2016-11-30 09:05 | EKG REPORT ---
SEVERITY:- ABNORMAL ECG - SINUS TACHYCARDIA LEFT AXIS DEVIATION PROBABLE LVH WITH SECONDARY REPOL ABNRM ANTERIOR Q WAVES, POSSIBLY DUE TO LVH : Confirmed by: Molly Gama MD 30-Nov-2016 09:04:27
[2016-11-30] MEDS ORDERED: LISINOPRIL 10 MG TABLET PO SCH (10:00)
== END 2016-11-29 16:36 | disposition short-term general hospital (02) | DRG 177 ==
LOC: ER 14:33 → EH 20:21 → UNDOADMIN 20:38 → EH 20:38 → 4N 23:15 → 3W 11-29 11:13
PROVIDERS: ADMIT Internal Medicine; ATTEND Internal Medicine
PROC: 0DB58ZX Excision of Esophagus, Via Natural or Artificial Opening Endoscopic, Diagnostic (ICD-10-PCS; 2016-11-27)
PROC: 0DB68ZX Excision of Stomach, Via Natural or Artificial Opening Endoscopic, Diagnostic (ICD-10-PCS; 2016-11-27)
PROC: 05HM33Z Insertion of Infusion Device into Right Internal Jugular Vein, Percutaneous Approach (ICD-10-PCS; principal; 2016-11-29)
PROC: 5A09357 Assistance with Respiratory Ventilation, Less than 24 Consecutive Hours, Continuous Positive Airway Pressure (ICD-10-PCS; 2016-11-29)
DX: J69.0 Pneumonitis due to inhalation of food and vomit (principal); I21.4 Non-ST elevation (NSTEMI) myocardial infarction; J96.01 Acute respiratory failure with hypoxia; I50.21 Acute systolic (congestive) heart failure; A28.0 Pasteurellosis; R78.81 Bacteremia; K29.70 Gastritis, unspecified, without bleeding; B95.7 Other staphylococcus as the cause of diseases classified elsewhere; K29.80 Duodenitis without bleeding; K21.0 Gastro-esophageal reflux disease with esophagitis; I25.10 Atherosclerotic heart disease of native coronary artery without angina pectoris; I87.2 Venous insufficiency (chronic) (peripheral); E78.5 Hyperlipidemia, unspecified; K59.00 Constipation, unspecified; M19.90 Unspecified osteoarthritis, unspecified site; F32.9 Major depressive disorder, single episode, unspecified; I27.20 Pulmonary hypertension, unspecified; I11.0 Hypertensive heart disease with heart failure; R13.10 Dysphagia, unspecified; E11.40 Type 2 diabetes mellitus with diabetic neuropathy, unspecified; Z79.4 Long term (current) use of insulin; G47.33 Obstructive sleep apnea (adult) (pediatric); Z77.22 Contact with and (suspected) exposure to environmental tobacco smoke (acute) (chronic); Z95.5 Presence of coronary angioplasty implant and graft; Z98.51 Tubal ligation status; Z83.3 Family history of diabetes mellitus; W54.0XXA Bitten by dog, initial encounter
CPT/HCPCS: 36415; 36600; 43239; 70490; 71010; 71020; 71275; 80048; 80053; 80202; 81001; 82550; 82553; 82607; 82728; 82746; 82803; 82962; 83540; 83550; 83735; 84439; 84443; 84466; 84484; 85025; 85045; 85379; 85610; 85730; 87040; 87070; 87077; 87086; 87186; 87205; 88305; 93005; 93010; 93306; 94660; 94799; 99285; C1751; J0171; J0692; J1200; J1610; J1644; J1815; J1940; J1956; J2250; J2310; J2405; J2543; J2765; J3010; J3370; J3475; J3490; J7030; J7060; J7620; S0119

== ENCOUNTER 2017-04-09 22:13 | Inpatient (IN) | payer MEDICARE ==
[2017-04-09] MEDS ORDERED: MORPHINE SULFATE 10 MG/ML INJ IV ONE (23:39)
--- NOTE | 2017-04-09 23:39 | ER Document Report ---
ED General - General Chief Complaint: General Weakness Stated Complaint: WEAKNESS Time Seen by Provider: 04/09/17 23:20 Notes: Patient is a 71-year-old female who presents with complaint of severe pain into her lower abdomen with inability to have a bowel movement for 3 days. She has been able to urinate. She says it does burn some when she urinates. No fevers. Nausea but no vomiting. No blood in her stool. She does not take chronic pain medicines at home. She does have history of hypertension but has been taking her blood pressure medications. Her did give her a suppository but this did not help. TRAVEL OUTSIDE OF THE [place] IN LAST 30 DAYS: No - Related Data Allergies/Adverse Reactions: No Known Allergies Allergy (Verified 11/25/16 23:23) Past Medical History - Social History Smoking Status: Never Smoker Frequency of alcohol use: None Drug Abuse: None Family History: CAD Patient has suicidal ideation: No Patient has homicidal ideation: No - Past Medical History Cardiac Medical History: Reports: Hx Coronary Artery Disease - HIGH CHOL, Hx Hypercholesterolemia, Hx Hypertension Denies: Hx Heart Attack Pulmonary Medical History: Denies: Hx Asthma, Hx Bronchitis, Hx COPD, Hx Pneumonia Neurological Medical History: Denies: Hx Cerebrovascular Accident, Hx Seizures Endocrine Medical History: Reports: Hx Diabetes Mellitus Type 1, Hx Diabetes Mellitus Type 2 Renal/ Medical History: Denies: Hx Peritoneal Dialysis GI Medical History: Reports: Hx Gastroesophageal Reflux Disease Musculoskeltal Medical History: Reports Hx Arthritis Psychiatric Medical History: Reports: Hx Depression Past Surgical History: Reports: Hx Cardiac Catheterization - stent x1, Hx Section - x3, Hx Coronary Stent, Hx Tubal Ligation. Denies: Hx Hysterectomy - Immunizations Hx Diphtheria, Pertussis, Tetanus Vaccination: Yes - 2009 Hx Pneumococcal Vaccination: 02/26/11 Review of Systems - Review of Systems Notes: My Normal Review Basic REVIEW OF SYSTEMS: CONSTITUTIONAL : Denies fever, chills, or sweats. Denies recent illness. EENT: Denies eye, ear, throat, or mouth pain or symptoms. Denies nasal or sinus congestion. CARDIOVASCULAR: Denies chest pain. RESPIRATORY: Denies cough, cold, or chest congestion. Denies shortness of breath, difficulty breathing, or wheezing. GASTROINTESTINAL: Denies abdominal pain. Denies nausea, vomiting, or diarrhea. Last bowel movement was 3-4 days ago. GENITOURINARY: Some dysuria MUSCULOSKELETAL: Denies neck or back pain or joint pain or swelling. SKIN: Denies rash or skin lesions. NEUROLOGICAL: Denies altered mental status or loss of consciousness. Denies headache. Denies weakness or paralysis or loss of use of either side. Denies problems with gait or speech. Denies sensory or motor loss. ALL OTHER SYSTEMS REVIEWED AND NEGATIVE. Physical Exam - Vital signs Vitals: Resp Pulse Ox 25 H 97 04/09/17 22:27 04/09/17 22:27 - Notes Notes: General Appearance: Well nourished, alert, cooperative, no acute distress, moderate to severe obvious discomfort. Weak appearing. Vitals: reviewed, See vital signs table. Head: no swelling or tenderness to the head Eyes: PERRL, EOMI, Conjuctiva clear Mouth: No decreasd moisture Lungs: No wheezing, No rales, No rhonci, No accessory muscle use, good air exchange bilaterally. Heart: Normal rate, Regular rythm, No murmur, no rub Abdomen: Normal BS, soft, No rigidity, moderate lower abdominal tenderness to palpation, No guarding, no rebound, Rectal: Patient has a large amount of fecal impaction rectum on exam. Extremities: strength 5/5 in all extremities, good pulses in all extremities, no swelling or tenderness in the extremities, no edema. Skin: warm, dry, appropriate color, no rash Neuro: speech clear, oriented x 3, normal affect, responds appropriately to questions. Course - Re-evaluation Re-evalutation: 04/09/17 23:38 Patient has large amount of fecal impaction on rectal exam. I did disimpact a large amount of stool. We will give the patient dose of pain medicine. I will obtain x-ray. We will then most likely do an enema. 04/10/17 02:05 Patient received the enema. She still has pain. Her blood pressure still high. I will give her some dosages of her home blood pressure medications. Due to her continued large amount of pain and her age I will obtain a CT scan with IV contrast. I have ordered some more pain medicine. Abdomen still soft. 04/10/17 05:07 CT scan is negative. Despite pain medicine patient is still in a lot of pain. She also very weak appearing. She cannot lift herself out of bed. Still tachycardic and hypertensive. I have ordered her blood pressure medications help with hypertension. Will order more pain medicine. I did speak with hospice for consideration for admission because the patient's ongoing pain, hypertension, tachycardia, and overall clinically appearing unwell. Dictation of this chart was performed using voice recognition software; therefore, there may be some unintended grammatical errors. - Vital Signs Vital signs: Temp Pulse Resp BP Pulse Ox 20 188/94 H 96 04/10/17 03:53 04/10/17 03:53 04/10/17 04:01 - Laboratory Result Diagrams: 04/09/17 23:56 04/09/17 23:56 Laboratory results interpreted by me: 04/09/17 04/09/17 04/09/17 22:35 23:56 23:56 RDW 14.7 H Seg Neutrophils % 86.0 H Lymphocytes % 9.4 L Absolute Neutrophils 8.8 H Creatinine 0.43 L Glucose 362 H Calcium 10.3 H Direct Bilirubin 0.5 H AST 45 H Urine Protein 100 H Urine Glucose (UA) >=500 H Urine Ketones 20 H Urine Blood MODERATE H Ur Leukocyte Esterase MODERATE H Discharge - Discharge Clinical Impression: Weakness, Fecal impaction, Tachycardia Hypertension Qualifiers: Hypertension type: unspecified Qualified Code(s): I10 - Essential (primary) hypertension Condition: Stable Disposition: ADMITTED OBSERVATION Admitting Provider: Hospitalist Unit Admitted: Telemetry
[2017-04-09] MEDS ORDERED: FENTANYL CITRATE INJ/PF 100 MCG/2 ML AMPUL IV ONE (23:59)
[2017-04-10 00:09] LABS: APPEARANCE,URINE CLOUDY; BILIRUBIN,URINE NEGATIVE (NEGATIVE); GLUCOSE, URINE >=500 mg/dL (NEGATIVE); KETONES,URINE 20 mg/dL (NEGATIVE); LEUKOCYTE ESTERASE,URINE MODERATE (NEGATIVE); NITRITE,URINE NEGATIVE (NEGATIVE); PROTEIN,URINE 100 mg/dL (NEGATIVE); URINE SPECIFIC GRAVITY 1.014; UROBILINOGEN,URINE NEGATIVE mg/dL (<2.0)
[2017-04-10 00:13] LABS: COLOR,URINE DARK YELLOW
[2017-04-10 00:17] LABS: ABSOLUTE MONOCYTES (AUTO) 0.4 10^3/uL (0.1-1.4); ABSOLUTE NEUT (AUTO) 8.8 10^3/uL (1.7-8.2); BASOPHILS % (AUTO) 0.2 % (0-2); HEMATOCRIT 38.9 % (36.0-47.0); HEMOGLOBIN 13.2 g/dL (12.0-15.5); LYMPHOCYTES % (AUTO) 9.4 % (13-45); MEAN CORPUSCULAR HGB CONC 33.9 g/dL (32.0-36.0); MEAN CORPUSCULAR VOLUME 83 fl (80-97); MONOCYTES % (AUTO) 4.4 % (3-13); PLATELET COUNT 177 10^3/uL (150-450); RED BLOOD COUNT 4.71 10^6/uL (3.72-5.28); RED CELL DISTRIBUTION WIDTH 14.7 % (11.5-14.0); TOTAL CELLS COUNTED % (AUTO) 100 %; WHITE BLOOD COUNT 10.2 10^3/uL (4.0-10.5)
[2017-04-10 00:36] LABS: ALANINE AMINOTRANSFERASE 28 U/L (9-52); ALBUMIN 4.3 g/dL (3.5-5.0); ALKALINE PHOSPHATASE 96 U/L (38-126); ANION GAP 11 (5-19); ASPARTATE AMINO TRANSFERASE 45 U/L (14-36); BILIRUBIN,DIRECT 0.5 mg/dL (0.0-0.4); BILIRUBIN,TOTAL 0.9 mg/dL (0.2-1.3); BLOOD UREA NITROGEN 12 mg/dL (7-20); CALCIUM 10.3 mg/dL (8.4-10.2); CARBON DIOXIDE 29 mmol/L (22-30); CHLORIDE 98 mmol/L (98-107); GLUCOSE 362 mg/dL (75-110); LIPASE 54.9 U/L (23-300); POTASSIUM 3.7 mmol/L (3.6-5.0); SODIUM 138.4 mmol/L (137-145); TOTAL PROTEIN 8.1 g/dL (6.3-8.2)
[2017-04-10] MEDS ORDERED: INSULIN REG, HUMAN 100 UNIT/ML 3 ML VIAL (PYX) SUBCUT ONE (00:39)
[2017-04-10] MEDS ORDERED: MINERAL OIL 30 ML UDCUP PR ONE (00:41)
--- NOTE | 2017-04-10 01:02 | RADIOLOGY REPORT (SQ) ---
EXAM DESCRIPTION: ACUTE ABDOMEN SERIES CLINICAL HISTORY: 71 years, Female, abdominal pain, fecal impaction COMPARISON: 01/01/2017. LIMITATIONS: None. FINDINGS: No acute cardiopulmonary findings. Left cardiac stimulation device and leads. Median sternotomy. Normal intestinal gas pattern. Intact bony structures. IMPRESSION: No acute findings.
[2017-04-10] MEDS ORDERED: FENTANYL CITRATE INJ/PF 100 MCG/2 ML AMPUL IV ONE (02:03)
[2017-04-10] MEDS ORDERED: METOPROLOL TARTRATE 25 MG TABLET PO ONE (02:04)
[2017-04-10] MEDS ORDERED: HYDROCHLOROTHIAZIDE 25 MG TABLET PO ONE (02:04)
--- NOTE | 2017-04-10 02:57 | RADIOLOGY REPORT (SQ) ---
EXAM DESCRIPTION: CT ABD/PELVIS NO ORAL OR IV CLINICAL HISTORY: 71 years Female, abdominal pain COMPARISON: 10/17/2016. TECHNIQUE: 74 mL Isovue-370 IV contrast. Coronal and sagittal reformat. This exam was performed according to our departmental dose-optimization program, which includes automated exposure control, adjustment of the mA and/or kV according to patient size and/or use of iterative reconstruction technique. FINDINGS: No acute findings. No bowel or renal obstruction. Normal appendix. Cardiac stimulation leads. Sternotomy. Atherosclerosis including bilateral renal arterial stenosis. 3 cm umbilical fat only hernia. Calcified granuloma at bilateral buttocks. Mild T10 and T9 anterior vertebral compression deformity. Mild thoracolumbar levo convexity. Unenhanced inferior chest, intra-abdominal/intrapelvic structures, and musculoskeleton appear otherwise grossly intact. IMPRESSION: No acute findings.
[2017-04-10] MEDS ORDERED: CEFTRIAXONE INJ 500 MG VIAL IV ONE (03:21)
[2017-04-10] MEDS ORDERED: RINGERS SOLUTION,LACTATED 1,000 ML IV PRN (04:17)
[2017-04-10] MEDS ORDERED: GLUCAGON,HUMAN RECOMB 1 MG INJ IM PRN (04:20)
[2017-04-10] MEDS ORDERED: DEXTROSE 50%-WATER 25 GM/50 ML DISP.SYRIN IV PRN ×2 (04:20)
[2017-04-10] MEDS ORDERED: DEXTROSE 40% GEL 15 GM TUBE PO PRN ×2 (04:20)
[2017-04-10] MEDS ORDERED: MAG HYDROX/AL HYDROX/SIMETH SUSP 30 ML UDCUP PO ONE (04:21)
[2017-04-10] MEDS ORDERED: LIDOCAINE 2% VISCOUS SOLN 20 ML UDCUP PO ONE (04:21)
[2017-04-10] MEDS ORDERED: METOCLOPRAMIDE HCL ORAL SOLN 10 MG/10 ML UDCUP PO ONE (04:21)
[2017-04-10] MEDS ORDERED: LABETALOL HCL INJ 20 MG/4 ML DISP.SYRIN IV ONE (04:23)
[2017-04-10] MEDS ORDERED: NITROGLYCERIN 2.5 MG (0.1 MG/HR) PATCH.TD24 TD ONE (04:24)
[2017-04-10] MEDS ORDERED: METOCLOPRAMIDE HCL INJ/PF 10 MG/2 ML SDV IV ONE (04:42)
[2017-04-10 05:09] LABS: ANION GAP 16 (5-19); BLOOD UREA NITROGEN 13 mg/dL (7-20); CALCIUM 10.1 mg/dL (8.4-10.2); CARBON DIOXIDE 25 mmol/L (22-30); CHLORIDE 97 mmol/L (98-107); GLUCOSE 375 mg/dL (75-110); POTASSIUM 3.8 mmol/L (3.6-5.0); SODIUM 138.1 mmol/L (137-145)
[2017-04-10] MEDS ORDERED: HYDROMORPHONE HCL INJ/PF 2 MG/ML AMPULE IV PRN (05:38)
[2017-04-10] MEDS ORDERED: HYDRALAZINE HCL INJ/PF 20 MG/1 ML SDV IV ONE (06:02)
[2017-04-10] MEDS: ACETAMINOPHEN 325 MG TABLET PO PRN ×2 (06:08→16:12)
[2017-04-10] MEDS: INSULIN LISPRO 100 UNIT/ML 3 ML VIAL SUBCUT PRN ×2 (06:14→12:45)
--- NOTE | 2017-04-10 06:19 | PDOC H&P ---
History of Present Illness Admission Date/PCP: MALATHI DENNISON MD Patient complains of: Abdominal pain and weakness History of Present Illness: IRMA CASE is a 71 year old female history of coronary artery disease post- stent, ID in November 2016 for which she was transferred to [place], pulmonary hypertension, type 2 diabetes, hyperlipidemia, hypertension congestive heart failure with a EF of 35% status post AICD placement in [place]. Patient presented with 3 day history of abdominal pain and no bowel movement. Patient was impacted. Patient was disimpacted in the ED. Patient also has not been eating. Per patient's patient has not been ambulating. He said before she had gone to rehab when she was walking using a walker now she is not walking at all. Patient is not providing any history. denies any history of stroke. The ED patient had a CT of the abdomen which was negative. UA was concerning for UTI and patient was given ceftriaxone. Patient was found to be extremely hypertensive at first this was thought to be due to her pain however now patient is complaining of headache. Hospitalist called to admit patient for hypertensive emergency, weakness and abdominal pain. Past Medical History Cardiac Medical History: Reports: Coronary Artery Disease - HIGH CHOL, Hyperlipidema, Hypertension Denies: Myocardial Infarction Pulmonary Medical History: Denies: Asthma, Bronchitis, Chronic Obstructive Pulmonary Disease (COPD), Pneumonia Neurological Medical History: Denies: Seizures Endocrine Medical History: Reports: Diabetes Mellitus Type 2 GI Medical History: Reports: Gastroesophageal Reflux Disease Musculoskeltal Medical History: Reports: Arthritis Psychiatric Medical History: Reports: Depression Hematology: Denies: Anemia Past Surgical History Past Surgical History: Reports: Cardiac Catheterization - stent x1, Section - x3, Coronary Stent, Tubal Ligation Denies: Hysterectomy Social History Smoking Status: Never Smoker Frequency of Alcohol Use: None Drugs: None - Advance Directive Resuscitation Status: Full Code Family History Family History: CAD Parental Family History Reviewed: No Children Family History Reviewed: No Sibling(s) Family History Reviewed.: No Medication/Allergy Home Medications: Aspirin [Ecotrin 325 mg EC Tablet] 325 mg PO DAILY 11/26/16 Atorvastatin Calcium [Lipitor 40 mg Tablet] 40 mg PO QHS 11/26/16 Benazepril HCl [Lotensin 5 mg Tablet] 5 mg PO DAILY 11/26/16 Fenofibrate Nanocrystallized [Tricor 48 mg Tablet] 48 mg PO DAILY 11/26/16 Gabapentin [Neurontin 300 mg Capsule] 300 mg PO Q8 11/26/16 Hydrochlorothiazide [Hydrodiuril 12.5 mg Capsule] 12.5 mg PO DAILY 11/26/16 Insulin Aspart [Novolog Flexpen] 12 unit SUBCUT AC 11/26/16 Insulin Glargine,Hum.rec.anlog [Lantus Insulin 100 Unit/1 ml 10 ml] 50 unit SUBCUT QHS 11/26/16 Metformin HCl [Glucophage 500 mg Tablet] 500 mg PO BIDACBS 11/26/16 Metoprolol Tartrate [Lopressor 50 mg Tablet] 50 mg PO Q12 11/26/16 Neomy Sulf/Polymyx B Sulf/Hc [Cortisporin Ear Suspension] 3 drop RT_EAR DAILY [place]-3/Dha/Epa/Fish Oil [Fish Oil 1,000 mg Softgel] 1 each PO DAILY 11/26/16 Sertraline HCl [Zoloft] 150 mg PO DAILY 11/26/16 Allergies/Adverse Reactions: No Known Allergies Allergy (Verified 11/25/16 23:23) Review of Systems Constitutional: ABSENT: chills, fever(s), headache(s), weight gain, weight loss Eyes: ABSENT: visual disturbances Ears: ABSENT: hearing changes Cardiovascular: ABSENT: chest pain, dyspnea on exertion, edema, orthropnea, palpitations Respiratory: ABSENT: cough, hemoptysis Gastrointestinal: PRESENT: abdominal pain. ABSENT: constipation, diarrhea, hematemesis, hematochezia, nausea, vomiting Genitourinary: ABSENT: dysuria, hematuria Musculoskeletal: ABSENT: joint swelling Integumentary: ABSENT: rash, wounds Neurological: PRESENT: weakness. ABSENT: abnormal gait, abnormal speech, confusion, dizziness, focal weakness, syncope Psychiatric: ABSENT: anxiety, depression, homidical ideation, suicidal ideation Endocrine: ABSENT: cold intolerance, heat intolerance, polydipsia, polyuria Hematologic/Lymphatic: ABSENT: easy bleeding, easy bruising Physical Exam Vital Signs: Temp Pulse Resp BP Pulse Ox 20 188/94 H 96 04/10/17 03:53 04/10/17 03:53 04/10/17 04:01 General appearance: PRESENT: no acute distress, well-developed, well-nourished Head exam: PRESENT: normocephalic Eye exam: PRESENT: EOMI. ABSENT: scleral icterus Ear exam: PRESENT: normal external ear exam Mouth exam: PRESENT: moist Teeth exam: PRESENT: edentulous Neck exam: ABSENT: carotid bruit, JVD, lymphadenopathy, thyromegaly Respiratory exam: PRESENT: clear to auscultation park. ABSENT: rales, rhonchi, wheezes Cardiovascular exam: PRESENT: RRR. ABSENT: diastolic murmur, rubs, systolic murmur Pulses: PRESENT: normal dorsalis pedis pul Vascular exam: PRESENT: normal capillary refill GI/Abdominal exam: PRESENT: normal bowel sounds, soft, tenderness. ABSENT: distended, guarding, mass, organolmegaly, rebound Rectal exam: PRESENT: deferred Extremities exam: PRESENT: full ROM. ABSENT: calf tenderness, clubbing, pedal edema Neurological exam: PRESENT: alert, awake, other - Moving all extremities not very interactive difficult to determine if she can follow commands appears to have a facial droop. ABSENT: motor sensory deficit Psychiatric exam: PRESENT: appropriate affect, normal mood. ABSENT: homicidal ideation, suicidal ideation Skin exam: PRESENT: dry, intact, warm. ABSENT: cyanosis, rash Results Laboratory Results: 04/09/17 23:56 04/10/17 04:30 04/09/17 04/09/17 04/09/17 22:35 23:56 23:56 WBC 10.2 RBC 4.71 Hgb 13.2 Hct 38.9 MCV 83 MCH 28.0 MCHC 33.9 RDW 14.7 H Plt Count 177 Seg Neutrophils % 86.0 H Lymphocytes % 9.4 L Monocytes % 4.4 Eosinophils % 0.0 Basophils % 0.2 Absolute Neutrophils 8.8 H Absolute Lymphocytes 1.0 Absolute Monocytes 0.4 Absolute Eosinophils 0.0 Absolute Basophils 0.0 Sodium 138.4 Potassium 3.7 Chloride 98 Carbon Dioxide 29 Anion Gap 11 BUN 12 Creatinine 0.43 L Est GFR ( Amer) > 60 Est GFR (Non-Af Amer) > 60 Glucose 362 H Calcium 10.3 H Total Bilirubin 0.9 AST 45 H ALT 28 Alkaline Phosphatase 96 Total Protein 8.1 Albumin 4.3 Lipase 54.9 Urine Color DARK YELLOW Urine Appearance CLOUDY Urine pH 7.0 Ur Specific Onyx 1.014 Urine Protein 100 H Urine Glucose (UA) >=500 H Urine Ketones 20 H Urine Blood MODERATE H Urine Nitrite NEGATIVE Ur Leukocyte Esterase MODERATE H Urine RBC (Auto) 25 04/10/17 04:30 WBC RBC Hgb Hct MCV MCH MCHC RDW Plt Count Seg Neutrophils % Lymphocytes % Monocytes % Eosinophils % Basophils % Absolute Neutrophils Absolute Lymphocytes Absolute Monocytes Absolute Eosinophils Absolute Basophils Sodium 138.1 Potassium 3.8 Chloride 97 L Carbon Dioxide 25 Anion Gap 16 BUN 13 Creatinine 0.40 L Est GFR ( Amer) > 60 Est GFR (Non-Af Amer) > 60 Glucose 375 H Calcium 10.1 Total Bilirubin AST ALT Alkaline Phosphatase Total Protein Albumin Lipase Urine Color Urine Appearance Urine pH Ur Specific Onyx Urine Protein Urine Glucose (UA) Urine Ketones Urine Blood Urine Nitrite Ur Leukocyte Esterase Urine RBC (Auto) 04/10/17 04:30 Troponin I 0.019 Impressions: Acute Abdomen Series 04/09/17 23:37 IMPRESSION: No acute findings. Abdomen/Pelvis CT 04/10/17 02:05 IMPRESSION: No acute findings. Assessment & Plan - Diagnosis (1) Hypertensive emergency Is this a current diagnosis for this admission?: Yes Plan: Blood pressure 204/96. Patient complaining of headache and abdominal pain patient nauseated but has not vomited patient also having weakness is unable to ambulate. Patient given labetalol IV push 1. Patient started on her oral home medications. Will monitor blood pressures and treat accordingly. Care must be taken not to bring the blood pressures down to quickly. (2) Weakness Is this a current diagnosis for this admission?: Yes Plan: She with weakness. Patient has stopped ambulating per her 3 days ago. This is concerning given patient history of diabetes hypertension. There is concern for possible stroke. Order stat CT head. Patient may require complete stroke workup if CT scan of head is negative. Will consult PT and OT. (3) Fecal impaction Is this a current diagnosis for this admission?: Yes Plan: Patient was disimpacted in the ED. patient constipation possibly due to hypercalcemia. Patient calcium was 10.3. Will continue patient on bowel regimen. (4) Congestive heart failure Qualifiers: Heart failure type: combined systolic and diastolic Is this a current diagnosis for this admission?: Yes Plan: Patient with combined systolic and diastolic heart failure. Patient had a cardiac echo done in November 2016 which showed an EF of 35%. Patient also has grade 3 diastolic dysfunction. Patient currently appears euvolemic. Patient is receiving gentle hydration while her diet is being gradually advanced. Monitor for volume overload. Will continue patient's beta-gen and Benzapril. (5) Diabetes Qualifiers: Diabetes mellitus type: type 2 Is this a current diagnosis for this admission?: Yes Plan: Patient currently on sliding scale insulin. Patient is also on 50 units of Lantus nightly. (6) CAD (coronary artery disease) Is this a current diagnosis for this admission?: Yes Plan: Patient with a history of coronary artery disease that is post CABG and AICD placement. Continue aspirin statin and beta-gen. Initial troponin was negative. (7) Abdominal pain Qualifiers: Abdominal location: generalized Qualified Code(s): R10.84 - Generalized abdominal pain Is this a current diagnosis for this admission?: Yes Plan: Thought to be due to fecal impaction however this could be due to gastroparesis as patient is diabetes headache. Will give patient a GI cocktail and a dose of Reglan. Lipase is not elevated it is only 54.9. AST mildly elevated at 45. CT scan of the abdomen is negative. Will order abdominal ultrasound. Patient on PPI for possible gastritis. - Time Time Spent: 30 to 50 Minutes Anticipated discharge: Home with Homehealth Within: within 72 hours - Inpatient Certification Medical Necessity: Need For Continuous Telemetry Monitoring - Patient with hypertensive emergency. Blood pressure will need to be adequately controlled prior to being discharged home.
[2017-04-10 07:23] LABS: ALBUMIN 4.5 g/dL (3.5-5.0); BILIRUBIN,DIRECT 0.4 mg/dL (0.0-0.4); TOTAL PROTEIN 7.5 g/dL (6.3-8.2)
--- NOTE | 2017-04-10 08:02 | RADIOLOGY REPORT (SQ) ---
EXAM DESCRIPTION: CT HEAD WITHOUT CLINICAL HISTORY: 71 years Female, weakness unable to walk COMPARISON: None. TECHNIQUE: No contrast. This exam was performed according to our departmental dose-optimization program, which includes automated exposure control, adjustment of the mA and/or kV according to patient size and/or use of iterative reconstruction technique. FINDINGS: Mild cerebral volume loss. Atherosclerosis. No hemorrhage or infarct. No mass, mass effect, or midline shift. Extra-axial structures appear otherwise grossly intact. IMPRESSION: No acute findings.
[2017-04-10 08:24] LABS: ALANINE AMINOTRANSFERASE 20 U/L (9-52); ALKALINE PHOSPHATASE 88 U/L (38-126); ASPARTATE AMINO TRANSFERASE 54 U/L (14-36)
[2017-04-10 08:28] LABS: MAGNESIUM 1.3 mg/dL (1.6-2.3)
[2017-04-10] MEDS ORDERED: HYDRALAZINE HCL INJ/PF 20 MG/1 ML SDV IV PRN (08:51)
[2017-04-10] MEDS: POLYETHYLENE GLYCOL 3350 POWDER 17 GM/1 PACKET PO SCH (09:36)
[2017-04-10] MEDS: SERTRALINE HCL 50 MG TABLET PO SCH (09:38)
[2017-04-10] MEDS: ASPIRIN 325 MG TABLET, ENT COATED PO SCH (09:39)
[2017-04-10] MEDS: SENNOSIDES/DOCUSATE 8.6-50 MG 1 EACH TABLET PO SCH ×2 (09:40→22:10)
[2017-04-10] MEDS ORDERED: METOPROLOL TARTRATE 50 MG TABLET PO SCH (10:00)
[2017-04-10] MEDS ORDERED: METOPROLOL SUCCINATE 50 MG TAB.SR.24H PO SCH (10:00)
[2017-04-10] MEDS ORDERED: PANTOPRAZOLE SODIUM 40 MG VIAL IV SCH (10:00)
[2017-04-10] MEDS ORDERED: BENAZEPRIL HCL 5 MG TABLET PO SCH ×3 (10:00→11:59)
[2017-04-10] MEDS ORDERED: AMLODIPINE BESYLATE 5 MG TABLET PO SCH (10:00)
--- NOTE | 2017-04-10 10:08 | RADIOLOGY REPORT (SQ) ---
EXAM DESCRIPTION: U/S ABDOMEN LIMITED W/O DOP COMPLETED DATE/TIME: 04/10/2017 9:17 am REASON FOR STUDY: RUQ abdominal pain COMPARISON: None. TECHNIQUE: Dynamic and static grayscale images acquired of the right upper quadrant and recorded on PACS. Additional selected color Doppler and spectral images recorded. LIMITATIONS: Study limited due to acoustical interference from fat or from air in the bowel. FINDINGS: PANCREAS: Not adequately visualized. LIVER: Poorly visualized. Echotexture is coarse with increased echogenicity consistent with fatty in filtration. No masses. LIVER VASCULATURE: Normal directional flow of the main portal vein and hepatic veins. GALLBLADDER: Poorly visualized. No stones. Normal wall thickness. No pericholecystic fluid. ULTRASOUND-DETECTED VALLADARES'S SIGN: Negative. INTRAHEPATIC DUCTS AND COMMON DUCT: CBD and intrahepatic ducts normal caliber. No filling defects. INFERIOR VENA CAVA: Normal flow. AORTA: No aneurysm. RIGHT KIDNEY: Normal size. Normal echogenicity. No solid or suspicious masses. No hydronephrosis. No calcifications. PERITONEAL CAVITY AND RIGHT PLEURAL SPACE: No ascites or effusions. OTHER: No other significant finding. IMPRESSION: LIMITED STUDY. FATTY LIVER. PANCREAS OBSCURED. OTHERWISE UNREMARKABLE RIGHT UPPER QUADR ANT ULTRASOUND. TECHNICAL DOCUMENTATION: JOB ID: [id number] [email or web address] All Rights Reserved
--- NOTE | 2017-04-10 11:49 | RADIOLOGY REPORT (SQ) ---
EXAM DESCRIPTION: CT LUMBAR SPINE WITH COMPLETED DATE/TIME: 04/10/2017 10:40 am REASON FOR STUDY: bilateral leg weakness COMPARISON: None. TECHNIQUE: Axial images acquired through the lumbar spine without intravenous contrast. Images revi ewed with lung, soft tissue and bone windows. Reconstructed coronal and sagittal MPR images reviewed . All images stored on PACS. All CT scanners at this facility use dose modulation, iterative reconstruction, and/or weight based d osing when appropriate to reduce radiation dose to as low as reasonably achievable (ALARA). [facility]: Dose Right [facility]: CareDose [facility]: Dose Right [facility]: Teradose 4D [facility]: TDI [place] RADIATION DOSE: mGy. CONTRAST DOSE: 100 mL Isovue 370. RENAL FUNCTION: BUN 13 creatinine 0.4. LIMITATIONS: None. FINDINGS: SEGMENTATION: Normal. No transitional anatomy. ALIGNMENT: Normal. VERTEBRAL BODIES: No fractures. No dislocation. No acute findings. DISCS: Posterior disc bulge at L3-L4, L4-L5, and L5-S1. Moderate spinal stenosis at these levels. S tudy limited by lack of intrathecal contrast. PEDICLES, TRANSVERSE PROCESSES: No fractures. No dislocation. No acute findings. FACETS, POSTERIOR ELEMENTS: Facet arthropathy and ligamentum flavum thickening in the lower lumbar sp ine. Anterior osteophytes, particularly on the right side at L3-L4 contributing to spinal stenosis. No fractures. No dislocation. No spinal stenosis. HARDWARE: None in the spine. VISUALIZED RIBS: No fractures. SOFT TISSUES: No significant or acute finding in adjacent soft tissues. OTHER: No abnormal enhancement. IMPRESSION: CHRONIC DEGENERATIVE CHANGES WITH SPINAL STENOSIS IN THE LOWER LUMBAR SPINE. NO APPAREN T ACUTE FINDINGS. NO ABNORMAL ENHANCEMENT. TECHNICAL DOCUMENTATION: JOB ID: [id number] Quality ID # [id number]: Final reports with documentation of one or more dose reduction techniques (e.g., Au tomated exposure control, adjustment of the mA and/or kV according to patient size, use of iterative reconstruction technique) 2010 [email or web address]- All Rights Reserved
[2017-04-10] MEDS ORDERED: INSULIN LISPRO 100 UNIT/ML 3 ML VIAL SUBCUT PRN (13:31)
[2017-04-10] MEDS: INSULIN LISPRO 100 UNIT/ML 3 ML VIAL SUBCUT SCH (16:14)
[2017-04-10] MEDS ORDERED: INSULIN GLARGINE,HUM.REC.ANLOG 1,000 UNIT/10 ML UNIT SUBCUT SCH (22:00)
[2017-04-10] MEDS: ATORVASTATIN CALCIUM 40 MG TABLET PO SCH (22:09)
[2017-04-10] MEDS: INSULIN GLARGINE,HUM.REC.ANLOG 1,000 UNIT/10 ML UNIT SUBCUT SCH (23:50)
[2017-04-11 05:38] LABS: ABSOLUTE LYMPHOCYTES (AUTO) 2.1 10^3/uL (0.5-4.7); ABSOLUTE MONOCYTES (AUTO) 0.8 10^3/uL (0.1-1.4); ABSOLUTE NEUT (AUTO) 5.1 10^3/uL (1.7-8.2); BASOPHILS % (AUTO) 0.5 % (0-2); EOSINOPHILS % (AUTO) 0.5 % (0-6); HEMATOCRIT 35.2 % (36.0-47.0); HEMOGLOBIN 11.9 g/dL (12.0-15.5); LYMPHOCYTES % (AUTO) 25.8 % (13-45); MEAN CORPUSCULAR HEMOGLOBIN 27.7 pg (27.0-33.4); MEAN CORPUSCULAR HGB CONC 33.8 g/dL (32.0-36.0); MEAN CORPUSCULAR VOLUME 82 fl (80-97); MONOCYTES % (AUTO) 10.1 % (3-13); PLATELET COUNT 160 10^3/uL (150-450); RED CELL DISTRIBUTION WIDTH 14.6 % (11.5-14.0); SEGMENTED NEUTROPHILS % (AUTO) 63.1 % (42-78); TOTAL CELLS COUNTED % (AUTO) 100 %; WHITE BLOOD COUNT 8.2 10^3/uL (4.0-10.5)
[2017-04-11 06:09] LABS: ANION GAP 7 (5-19); BLOOD UREA NITROGEN 23 mg/dL (7-20); CALCIUM 9.4 mg/dL (8.4-10.2); CARBON DIOXIDE 29 mmol/L (22-30); CHLORIDE 100 mmol/L (98-107); GLUCOSE 115 mg/dL (75-110); MAGNESIUM 1.5 mg/dL (1.6-2.3); POTASSIUM 3.3 mmol/L (3.6-5.0); SODIUM 136.1 mmol/L (137-145)
[2017-04-11] MEDS: LANSOPRAZOLE 30 MG TAB.RAP.DR PO SCH (09:40)
[2017-04-11] MEDS: INSULIN LISPRO 100 UNIT/ML 3 ML VIAL SUBCUT SCH ×3 (09:40→15:00)
[2017-04-11] MEDS: ASPIRIN 325 MG TABLET, ENT COATED PO SCH (09:41)
[2017-04-11] MEDS: POLYETHYLENE GLYCOL 3350 POWDER 17 GM/1 PACKET PO SCH (09:41)
[2017-04-11] MEDS: SERTRALINE HCL 50 MG TABLET PO SCH (09:42)
[2017-04-11] MEDS: SENNOSIDES/DOCUSATE 8.6-50 MG 1 EACH TABLET PO SCH ×2 (09:42→17:19)
[2017-04-11] MEDS ORDERED: NITROGLYCERIN 2.5 MG (0.1 MG/HR) PATCH.TD24 TD SCH (10:00)
[2017-04-11] MEDS ORDERED: MECLIZINE HCL 25 MG TABLET PO PRN (11:57)
[2017-04-11] MEDS: POTASSIUM CHLORIDE 10 MEQ TABLET.SA PO SCH ×2 (12:59→17:19)
[2017-04-11] MEDS: MAGNESIUM OXIDE 400 MG TABLET PO SCH (17:19)
--- NOTE | 2017-04-11 17:28 | PDOC PROGRESS REPORT ---
Subjective Progress Note for:: 04/11/17 Subjective:: Patient refers that she feels better. She has not been having abdominal pain since she came in. Patient was informed about findings of CT of the lumbar spine. Nurse advised as to discontinue Benton and follow-up response Review of systems All organ systems evaluated and negative except as in subjective All laboratories and significant diagnostics have been reviewed Reason For Visit: HYPERTENSIVE EMERGENCY, ABDOMINAL PAIN Physical Exam Vital Signs: Temp Pulse Resp BP Pulse Ox 17 141/109 H 96 04/10/17 06:40 04/10/17 06:40 04/10/17 06:40 General appearance: PRESENT: cooperative, well-developed, well-nourished Head exam: PRESENT: atraumatic, normocephalic Eye exam: PRESENT: EOMI, PERRLA Ear exam: PRESENT: normal external ear exam, TM's normal bilaterally Mouth exam: PRESENT: moist Neck exam: PRESENT: full ROM. ABSENT: JVD, lymphadenopathy, tenderness Respiratory exam: PRESENT: clear to auscultation park Cardiovascular exam: PRESENT: RRR. ABSENT: diastolic murmur, systolic murmur Vascular exam: PRESENT: normal capillary refill GI/Abdominal exam: PRESENT: normal bowel sounds, soft. ABSENT: tenderness Extremities exam: PRESENT: full ROM. ABSENT: pedal edema Musculoskeletal exam: PRESENT: ambulatory Neurological exam: PRESENT: alert, awake, oriented to person, oriented to place , oriented to time, oriented to situation, CN II-XII grossly intact Psychiatric exam: PRESENT: appropriate affect, normal mood Skin exam: PRESENT: intact, normal color Results Laboratory Results: 04/10/17 07:49 PTH Intact 50.8 Impressions: Acute Abdomen Series 04/09/17 23:37 IMPRESSION: No acute findings. Head CT 04/10/17 00:00 IMPRESSION: No acute findings. Abdomen/Pelvis CT 04/10/17 02:05 IMPRESSION: No acute findings. Assessment & Plan - Diagnosis (1) Urinary retention Is this a current diagnosis for this admission?: Yes Plan: Will discontinue Benton and place on Flomax. Will follow up response to evaluate for the need to reinsert Benton (2) Hypertensive emergency Is this a current diagnosis for this admission?: Yes Plan: Resolved. To restart outpatient regimen (3) Diabetes Qualifiers: Diabetes mellitus type: type 2 Diabetes mellitus complication status: with circulatory complication Diabetes mellitus complication detail: with other circulatory complications Diabetes mellitus terminal operations manager insulin use: without senior care use Qualified Code(s): E11.59 - Type 2 diabetes mellitus with other circulatory complications Is this a current diagnosis for this admission?: Yes Plan: Continue present management (4) CAD (coronary artery disease) Qualifiers: Coronary Disease-Associated Artery/Lesion type: unspecified vessel or lesion type Associated angina: angina presence unspecified Is this a current diagnosis for this admission?: Yes Plan: Stable from the standpoint of view (5) Spinal stenosis of lumbar region Qualifiers: Neurogenic claudication status: unspecified Qualified Code(s): M48.061 - Spinal stenosis, lumbar region without neurogenic claudication Is this a current diagnosis for this admission?: Yes Plan: May be contributing to urinary retention. - Time Time Spent with patient: 15-24 minutes Medications reviewed and adjusted accordingly: Yes Anticipated discharge: Home with Homehealth Within: within 24 hours - Inpatient Certification Based on my medical assessment, after consideration of the patient's comorbidities, presenting symptoms, or acuity I expect that the services needed warrant INPATIENT care.: Yes I certify that my determination is in accordance with my understanding of Medicare's requirements for reasonable and necessary INPATIENT services [42 CFR 412.3e].: Yes Medical Necessity: Need Close Monitoring Due to Risk of Patient Decompensation
[2017-04-11] MEDS ORDERED: TAMSULOSIN HCL 0.4 MG CAP.SR.24H PO ONE (19:00)
[2017-04-11] MEDS: METOPROLOL TARTRATE 25 MG TABLET PO SCH (22:54)
[2017-04-11] MEDS: ATORVASTATIN CALCIUM 40 MG TABLET PO SCH (22:55)
[2017-04-11] MEDS: INSULIN GLARGINE,HUM.REC.ANLOG 1,000 UNIT/10 ML UNIT SUBCUT SCH (22:55)
[2017-04-12 05:52] LABS: ABSOLUTE EOSINOPHILS # (AUTO) 0.1 10^3/uL (0.0-0.6); ABSOLUTE LYMPHOCYTES (AUTO) 1.6 10^3/uL (0.5-4.7); ABSOLUTE MONOCYTES (AUTO) 0.8 10^3/uL (0.1-1.4); ABSOLUTE NEUT (AUTO) 4.2 10^3/uL (1.7-8.2); BASOPHILS % (AUTO) 0.5 % (0-2); EOSINOPHILS % (AUTO) 0.9 % (0-6); HEMATOCRIT 35.3 % (36.0-47.0); HEMOGLOBIN 11.7 g/dL (12.0-15.5); LYMPHOCYTES % (AUTO) 23.7 % (13-45); MEAN CORPUSCULAR HEMOGLOBIN 27.4 pg (27.0-33.4); MEAN CORPUSCULAR HGB CONC 33.2 g/dL (32.0-36.0); MEAN CORPUSCULAR VOLUME 82 fl (80-97); MONOCYTES % (AUTO) 11.8 % (3-13); PLATELET COUNT 181 10^3/uL (150-450); RED BLOOD COUNT 4.29 10^6/uL (3.72-5.28); RED CELL DISTRIBUTION WIDTH 15.1 % (11.5-14.0); SEGMENTED NEUTROPHILS % (AUTO) 63.1 % (42-78); TOTAL CELLS COUNTED % (AUTO) 100 %; WHITE BLOOD COUNT 6.7 10^3/uL (4.0-10.5)
[2017-04-12 05:57] LABS: ANION GAP 7 (5-19); BLOOD UREA NITROGEN 22 mg/dL (7-20); CALCIUM 9.3 mg/dL (8.4-10.2); CARBON DIOXIDE 27 mmol/L (22-30); CHLORIDE 104 mmol/L (98-107); GLUCOSE 141 mg/dL (75-110); MAGNESIUM 1.7 mg/dL (1.6-2.3); SODIUM 138.1 mmol/L (137-145)
[2017-04-12 06:04] LABS: POTASSIUM 4.7 mmol/L (3.6-5.0)
[2017-04-12] MEDS: INSULIN LISPRO 100 UNIT/ML 3 ML VIAL SUBCUT SCH ×2 (09:28→14:25)
[2017-04-12] MEDS: INSULIN LISPRO 100 UNIT/ML 3 ML VIAL SUBCUT PRN (09:28)
[2017-04-12] MEDS: LANSOPRAZOLE 30 MG TAB.RAP.DR PO SCH (09:29)
[2017-04-12] MEDS: ASPIRIN 325 MG TABLET, ENT COATED PO SCH (09:29)
[2017-04-12] MEDS: MAGNESIUM OXIDE 400 MG TABLET PO SCH (09:30)
[2017-04-12] MEDS: POLYETHYLENE GLYCOL 3350 POWDER 17 GM/1 PACKET PO SCH (09:31)
[2017-04-12] MEDS: SENNOSIDES/DOCUSATE 8.6-50 MG 1 EACH TABLET PO SCH (09:31)
[2017-04-12] MEDS: METOPROLOL TARTRATE 25 MG TABLET PO SCH (09:35)
--- NOTE | 2017-04-12 09:38 | Physician Advisory Note ---
Physician Advisor ProgressNote .: Pursuant to the plan for Julieta Dc, I have reviewed the medical record for this patient. Physician Advisor Statement: Please consdier documenting, if you agree: 1. "Hypertensive emergency, causing " [headache? other s/s/end-organ effects?] 2. "Chronic syst/diast CHF w/EF 35%" 3. "Acute ____ [generalized? LLQ? ...] abd pain, due to constipation w/ impaction, resolved" Thanks! CK
[2017-04-12] MEDS ORDERED: MULTIVITAMIN TABLET PO SCH (10:00)
[2017-04-12] MEDS ORDERED: SERTRALINE HCL 50 MG TABLET PO SCH (10:00)
[2017-04-12] MEDS ORDERED: BENAZEPRIL HCL 5 MG TABLET PO SCH (10:00)
[2017-04-12] MEDS ORDERED: BISACODYL 10 MG SUPP.RECT PR ONE (11:30)
[2017-04-12 13:23] VITALS: BP 137/54
--- NOTE | 2017-04-12 18:08 | PDOC DISCHARGE SUMMARY ---
General - Admit/Disc Date/PCP Admission Date/Primary Care Provider: 04/10/17 05:53 MALATHI DENNISON MD Discharge Date: 04/12/17 - Discharge Diagnosis (1) Hypertensive emergency Is this a current diagnosis for this admission?: Yes (2) Lower abdominal pain Is this a current diagnosis for this admission?: Yes (3) Constipation Is this a current diagnosis for this admission?: Yes (4) Urinary retention Is this a current diagnosis for this admission?: Yes (5) Diabetes Is this a current diagnosis for this admission?: Yes (6) CAD (coronary artery disease) Is this a current diagnosis for this admission?: Yes (7) Spinal stenosis of lumbar region Is this a current diagnosis for this admission?: Yes (8) Congestive heart failure Is this a current diagnosis for this admission?: No - Additional Information Resuscitation Status: Full Code Discharge Diet: Diabetic Discharge Activity: Activity As Tolerated Home Medications: Benazepril HCl [Lotensin 5 mg Tablet] 5 mg PO DAILY 04/10/17 Meclizine HCl [Antivert 25 mg Tablet] 25 mg PO Q8HP PRN 04/10/17 Metoprolol Tartrate [Lopressor 25 mg Tablet] 25 mg PO Q12 04/10/17 Multivitamin [Tab-A-Guera (Multiple Vitamin) Tablet] 1 tab PO DAILY 04/10/17 Sertraline HCl [Zoloft] 150 mg PO DAILY 04/10/17 Polyethylene Glycol 3350 [Miralax Powder 17 gm/Packet] 17 gm PO DAILY powd.pack 04/12/17 History of Present Illness History of Present Illness: IRMA CASE is a 71 year old femaleCARL CASE is a 71 year old female history of coronary artery disease post-stent, [place] in November 2016 for which she was transferred to [place], pulmonary hypertension, type 2 diabetes, hyperlipidemia, hypertension congestive heart failure with a EF of 35% status post AICD placement in [place]. Patient presented with 3 day history of abdominal pain and no bowel movement. Patient was impacted. Patient was disimpacted in the ED. Patient also has not been eating. Per patient's patient has not been ambulating. He said before she had gone to rehab when she was walking using a walker now she is not walking at all. Patient is not providing any history. denies any history of stroke. The ED patient had a CT of the abdomen which was negative. UA was concerning for UTI and patient was given ceftriaxone. Patient was found to be extremely hypertensive at first this was thought to be due to her pain however now patient is complaining of headache. Hospitalist called to admit patient for hypertensive emergency, weakness and abdominal pain Hospital Course Hospital Course: Patient was admitted under the hospitalist service. Culprit of presentation was a lower abdominal pain. Patient had not been able to move her bowels for the prior 3 days causing a lot of pain. On the day of discharge patient was manually disimpacted with further improvement. Patient has been advised as to take MiraLAX twice a day, to have Dulcolax tablets handy and she can take warm prune juice with MOM at bedtime. Patient also experienced urinary retention which required Benton. The latter was discontinued and she was able to urinate spontaneously. She was also placed on Flomax. We ordered a CT of the lumbar spine out of concern of pathology causing both a constipation and the urinary retention. It showed spinal stenosis. Patient has been advised that if she again experiences constipation and urinary retention she is to come to emergency room for further evaluation. Patient does carry a history of chronic systolic and diastolic congestive heart failure however it was not deemed to be an issue in these presentation. Although her blood pressure was markedly elevated major issue was pain and anxiety provoking and abrupt elevation of blood pressure. Patient is to reassume usual antihypertensive regimen. Her blood pressure had remained stable without needing to adjust her outpatient regimen. Patient suffers from weakness after she had cardiac surgery. She was released from rehab and she is to get physical therapy at home. Patient remained stable and since achieving maximum benefit of hospitalization stay prompted to discharge Physical Exam Vital Signs: Temp Pulse Resp BP Pulse Ox 98.9 F 89 16 127/55 H 96 04/12/17 03:39 04/12/17 03:39 04/12/17 03:39 04/12/17 03:39 04/12/17 03:39 Intake & Output 04/10/17 04/11/17 04/12/17 06:59 06:59 06:59 Intake Total 1050 910 Output Total 500 625 Balance 550 285 Weight 61.7 kg 61.7 kg 62.6 kg General appearance: PRESENT: cooperative, thin Head exam: PRESENT: atraumatic, normocephalic Eye exam: PRESENT: conjunctiva pink, EOMI, PERRLA Ear exam: PRESENT: normal external ear exam, TM's normal bilaterally Mouth exam: PRESENT: moist Neck exam: PRESENT: full ROM. ABSENT: JVD, lymphadenopathy, tenderness Respiratory exam: PRESENT: clear to auscultation park Cardiovascular exam: PRESENT: RRR. ABSENT: diastolic murmur, systolic murmur Vascular exam: PRESENT: normal capillary refill GI/Abdominal exam: PRESENT: normal bowel sounds, soft. ABSENT: tenderness Extremities exam: PRESENT: full ROM. ABSENT: pedal edema Musculoskeletal exam: PRESENT: ambulatory Neurological exam: PRESENT: alert, awake, oriented to person, oriented to place , oriented to time, oriented to situation, CN II-XII grossly intact Psychiatric exam: PRESENT: appropriate affect, normal mood Skin exam: PRESENT: intact, normal color Results Laboratory Results: 04/12/17 05:19 04/12/17 05:19 04/12/17 04/12/17 05:19 05:19 WBC 6.7 RBC 4.29 Hgb 11.7 L Hct 35.3 L MCV 82 MCH 27.4 MCHC 33.2 RDW 15.1 H Plt Count 181 Seg Neutrophils % 63.1 Lymphocytes % 23.7 Monocytes % 11.8 Eosinophils % 0.9 Basophils % 0.5 Absolute Neutrophils 4.2 Absolute Lymphocytes 1.6 Absolute Monocytes 0.8 Absolute Eosinophils 0.1 Absolute Basophils 0.0 Sodium 138.1 Potassium 4.7 D Chloride 104 Carbon Dioxide 27 Anion Gap 7 BUN 22 H Creatinine 0.62 Est GFR ( Amer) > 60 Est GFR (Non-Af Amer) > 60 Glucose 141 H Calcium 9.3 Magnesium 1.7 Impressions: Acute Abdomen Series 04/09/17 23:37 IMPRESSION: No acute findings. Abdomen Ultrasound 04/10/17 00:00 IMPRESSION: LIMITED STUDY. FATTY LIVER. PANCREAS OBSCURED. OTHERWISE UNREMARKABLE RIGHT UPPER QUADRANT ULTRASOUND. Head CT 04/10/17 00:00 IMPRESSION: No acute findings. Lumbar Spine CT 04/10/17 00:00 IMPRESSION: CHRONIC DEGENERATIVE CHANGES WITH SPINAL STENOSIS IN THE LOWER LUMBAR SPINE. NO APPARENT ACUTE FINDINGS. NO ABNORMAL ENHANCEMENT. Abdomen/Pelvis CT 04/10/17 02:05 IMPRESSION: No acute findings. Plan Discharge Plan: Home with home health Time Spent: Less than 30 Minutes
== END 2017-04-12 14:54 | disposition home health service (06) | DRG 305 ==
LOC: ER 22:13 → EH 04-10 05:53 → 3S 04-10 19:12
PROVIDERS: ADMIT Pediatrics; ATTEND Pediatrics
DX: I16.1 Hypertensive emergency (principal); I50.42 Chronic combined systolic (congestive) and diastolic (congestive) heart failure; K59.00 Constipation, unspecified; R33.9 Retention of urine, unspecified; E11.9 Type 2 diabetes mellitus without complications; I25.10 Atherosclerotic heart disease of native coronary artery without angina pectoris; M48.061 Spinal stenosis, lumbar region without neurogenic claudication; I11.0 Hypertensive heart disease with heart failure; I50.9 Heart failure, unspecified; I27.20 Pulmonary hypertension, unspecified; K21.9 Gastro-esophageal reflux disease without esophagitis; F32.9 Major depressive disorder, single episode, unspecified; M19.90 Unspecified osteoarthritis, unspecified site; E11.59 Type 2 diabetes mellitus with other circulatory complications; E78.00 Pure hypercholesterolemia, unspecified; I25.2 Old myocardial infarction; Z95.5 Presence of coronary angioplasty implant and graft; Z95.810 Presence of automatic (implantable) cardiac defibrillator; Z79.82 Long term (current) use of aspirin; Z79.4 Long term (current) use of insulin; Z79.899 Other long term (current) drug therapy; Z95.1 Presence of aortocoronary bypass graft; Z82.49 Family history of ischemic heart disease and other diseases of the circulatory system
CPT/HCPCS: 36415; 70450; 72132; 74022; 74176; 76705; 80048; 80053; 80076; 81001; 82607; 82962; 83690; 83735; 83970; 84484; 85025; 96365; 96375; 96376; 99285; G8978-GP; G8979-GP; G8987-GO; G8988-GO; J0360; J0696; J1815; J2765; J3010; J3490; J7120

== ENCOUNTER 2017-07-21 21:40 | Emergency (ER) | payer MEDICARE ==
--- NOTE | 2017-07-21 22:42 | RADIOLOGY REPORT (SQ) ---
EXAM DESCRIPTION: CT HEAD WITHOUT COMPLETED DATE/TIME: 07/21/2017 10:27 pm REASON FOR STUDY: fall, head injury COMPARISON: 04/10/2017, 01/19/2016, 01/11/2016, 07/27/2013 TECHNIQUE: Axial images acquired through the brain without intravenous contrast. Images reviewed wi th bone, brain and subdural windows. Images stored on PACS. All CT scanners at this facility use dose modulation, iterative reconstruction, and/or weight based d osing when appropriate to reduce radiation dose to as low as reasonably achievable (ALARA). [facility]: Dose Right [facility]: CareDose [facility]: Dose Right [facility]: Teradose 4D [facility]: [employer] RADIATION DOSE: CT Rad equipment meets quality standard of care and radiation dose reduction techniq ues were employed. CTDIvol: 53.2 mGy. DLP: 1017 mGy-cm. mGy. LIMITATIONS: None. FINDINGS: VENTRICLES: Normal size and contour. CEREBRUM: No masses. No hemorrhage. No midline shift. No evidence for acute infarction. Normal gra y/white matter differentiation. No areas of low density in the white matter. CEREBELLUM: No masses. No hemorrhage. No alteration of density. No evidence for acute infarction. EXTRAAXIAL SPACES: No fluid collections. No masses. ORBITS AND GLOBE: No intra- or extraconal masses. Normal contour of globe without masses. CALVARIUM: No fracture. PARANASAL SINUSES: No fluid or mucosal thickening. SOFT TISSUES: No mass or hematoma. OTHER: No other significant finding. IMPRESSION: NORMAL BRAIN CT WITHOUT CONTRAST. EVIDENCE OF ACUTE STROKE: NO. COMMENT: Quality ID # [id number]: Final reports with documentation of one or more dose reduction techniques (e.g., Automated exposure control, adjustment of the mA and/or kV according to patient size, use of iterative reconstruction technique) TECHNICAL DOCUMENTATION: JOB ID: [id number] [employer]- All Rights Reserved Reading location - IP/workstation name: [email or web address]
--- NOTE | 2017-07-21 22:51 | ER Document Report ---
ED Head/Face/Scalp Injury - General Chief Complaint: Head Injury Stated Complaint: FELL/HEAD INJURY Time Seen by Provider: 07/21/17 22:43 Mode of Arrival: Ambulatory Information source: Patient, Relative TRAVEL OUTSIDE OF THE [place] IN LAST 30 DAYS: No - HPI Patient complains to provider of: Injury Injury to: Forehead Notes: Patient is here with complaints of head injury. The patient normally walks with a walker. She was going to the bathroom and not using her walker when she tripped over a rug and hit her forehead on the floor. There was no loss of consciousness. She does complain of a mild headache. She denies being on blood thinners. She complains of some mild neck pain as well as right knee pain. She denies any numbness, tingling, weakness. No chest pain or shortness of breath. No abdominal pain. No nausea, vomiting, diarrhea. There was no dizziness or syncope that caused the fall, this was simply due to not walking with her walker and tripping over a rug. She denies any other complaints or injuries at this time. - Related Data Allergies/Adverse Reactions: No Known Allergies Allergy (Verified 11/25/16 23:23) Past Medical History - Social History Smoking Status: Never Smoker Family History: CAD - Past Medical History Cardiac Medical History: Reports: Hx Coronary Artery Disease - HIGH CHOL, Hx Hypercholesterolemia, Hx Hypertension Denies: Hx Heart Attack Pulmonary Medical History: Denies: Hx Asthma, Hx Bronchitis, Hx COPD, Hx Pneumonia Neurological Medical History: Denies: Hx Cerebrovascular Accident, Hx Seizures Endocrine Medical History: Reports: Hx Diabetes Mellitus Type 1, Hx Diabetes Mellitus Type 2 Renal/ Medical History: Denies: Hx Peritoneal Dialysis GI Medical History: Reports: Hx Gastroesophageal Reflux Disease Musculoskeltal Medical History: Reports Hx Arthritis Psychiatric Medical History: Reports: Hx Depression Past Surgical History: Reports: Hx Cardiac Catheterization - stent x1, Hx Section - x3, Hx Coronary Stent, Hx Tubal Ligation. Denies: Hx Hysterectomy - Immunizations Hx Diphtheria, Pertussis, Tetanus Vaccination: Yes - 2009 Hx Pneumococcal Vaccination: 02/26/11 Review of Systems - Review of Systems -: Yes All other systems reviewed and negative Physical Exam - Vital signs Vitals: Temp Pulse Resp BP Pulse Ox 98.4 F 83 20 163/80 H 97 07/21/17 21:51 07/21/17 21:51 07/21/17 21:51 07/21/17 21:51 07/21/17 21:51 - Notes Notes: GENERAL: alert, cooperative, nontoxic, no distress. HEAD: normocephalic, hematoma to the forehead. No depression or crepitus. EYES: conjunctiva pink without discharge, no external redness or swelling. Pupils are equal, round, reactive to light. Extraocular muscles intact. EARS: no external swelling, no external redness. TMs pearly jeffery. No hemotympanum NOSE: atraumatic, no external swelling MOUTH/THROAT: mucous membranes moist and pink, posterior pharynx without erythema, swelling, exudate. No trismus or drooling. NECK: soft, supple. Tenderness to palpation at C1, C2 midline. No step-offs or crepitus. C-collar was applied. CHEST: no distress, lungs clear and equal throughout. No wheezing, rales, rhonchi. CARDIAC: regular rate and rhythm, no murmur, normal capillary refill, normal pulses. No peripheral edema noted. BACK: full range of motion, no CVA tenderness. No midline tenderness step-offs or crepitus to palpation. EXTREMITIES: full range of motion of all extremities. No redness, no swelling. NEURO: alert and oriented x 3, cranial nerves II through XII are grossly intact. Upper and lower extremities are equal throughout. Normal sensation. No focal deficits, full range of motion of all extremities. normal finger to nose. PYSCH: appropriate mood, affect. Patient is cooperative. SKIN: pink, warm, dry, no rash. Course - Re-evaluation Re-evalutation: 07/22/17 00:21 Patient is nontoxic appearing with stable vitals. Patient is here with complaints of head injury after falling. The patient is normally walks with a walker was not using her walker when she tripped over rug and fell in the bathroom. She struck her head on the floor. No loss of consciousness. No blood thinners. She is noted to have a contusion of the forehead. She has some mild tenderness to palpation at C1/C2 but has full range of motion. She was placed in a c-collar until we were able to obtain a CT. CT of her C-spine as well as her brain were negative, c-collar was removed and her C-spine was cleared. She is a nonfocal neurological exam at this time. She also has some tenderness to the knee, x-ray of the knee was negative for acute fracture. The patient will be discharged home with instructions to rest, ice, elevate injuries. Take Tylenol as needed for pain. Follow-up if not better in the next 3-5 days, follow-up sooner for worsening pain, fever, numbness, tingling, weakness, blurred or loss vision, persistent vomiting, or for any further concerns. The patient is noted to have elevated blood pressure during today's emergency department visit. The patient was informed of this finding. The patient was instructed that this may be related to pre-hypertension and requires further evaluation with a primary care provider. The patient has no hypertensive symptoms at this time. The patient's emergency department workup and current diagnosis were explained to the patient and or family. Follow-up instructions were provided. Medications if prescribed were discussed. Instructions for when to return to the emergency department including specific worrisome symptoms were discussed with the patient and/or family. - Vital Signs Vital signs: Temp Pulse Resp BP Pulse Ox 98.4 F 83 20 163/80 H 97 07/21/17 21:51 07/21/17 21:51 07/21/17 21:51 07/21/17 21:51 07/21/17 21:51 - Diagnostic Test Radiology reviewed: Image reviewed, Reports reviewed - CT of the cervical spine and brain negative. X-rays of the right knee negative. Discharge - Discharge Clinical Impression: Head contusion Qualifiers: Encounter type: initial encounter Contusion of head detail: scalp Qualified Code(s): S00.03XA - Contusion of scalp, initial encounter Cervical strain, acute Qualifiers: Encounter type: initial encounter Qualified Code(s): S16.1XXA - Strain of muscle, fascia and tendon at neck level, initial encounter Contusion of right knee Qualifiers: Encounter type: initial encounter Qualified Code(s): S80.01XA - Contusion of right knee, initial encounter Condition: Stable Disposition: HOME, SELF-CARE Instructions: Head Injury Precautions ([facility]), Neck Injury (Cervical Strain) ([facility] ), Contusion ([facility]) Additional Instructions: Tylenol as needed for pain. Apply ice to sore areas. Follow-up with your doctor if not better in 3-5 days, sooner for worsening pain, high fever, persistent vomiting, severe headache, blurred or loss vision, numbness, tingling , weakness, any further concerns. Your blood pressure was elevated during today's visit. Have this rechecked with your doctor. Forms: Elevated Blood Pressure Referrals: MALATHI DAVILA PA-C [Primary Care Provider] - Follow up as needed
--- NOTE | 2017-07-22 00:15 | RADIOLOGY REPORT (SQ) ---
EXAM DESCRIPTION: CT CERVICAL SPINE WITHOUT IV CONTRAST CLINICAL HISTORY: 72 years Female, FALL, PAIN Comparison: 01.10.16 Technique: No contrast. Coronal and sagittal reformat. This exam was performed according to our departmental dose-optimization program, which includes automated exposure control, adjustment of the mA and/or kV according to patient size and/or use of iterative reconstruction technique.[facility]: Dose Right [facility]: CareDose [facility]: Dose Right [facility]: Teradose 4D [facility]: [employer] LIMITATIONS: None. Findings: Multilevel moderate disc bulge and disc calcification. Moderate bone demineralization. Normal alignment. Minimal levo convexity. Normal lordosis No fracture. Normal vertebral heights. Sternotomy. Atherosclerosis. Partially imaged nuchal soft tissues, inferior cranium, and upper thorax appear otherwise grossly intact. IMPRESSION: No acute findings.
--- NOTE | 2017-07-22 00:17 | RADIOLOGY REPORT (SQ) ---
EXAM DESCRIPTION: XR KNEE 4 OR MORE VIEWS CLINICAL HISTORY: 72 years Female, FALL, PAIN COMPARISON: None. Findings: Atherosclerosis. Bone demineralization. Surgical clips of the medial right knee. Moderate chondrocalcinosis.. Bones, joints, and soft tissues of the XR KNEE 4 VIEWS appear otherwise intact. IMPRESSION: No acute findings.
[2017-07-22 00:41] VITALS: BP 151/80
== END 2017-07-22 00:41 | disposition home or self-care (01) ==
LOC: ER 21:40
DX: S16.1XXA Strain of muscle, fascia and tendon at neck level, initial encounter (principal); S00.03XA Contusion of scalp, initial encounter; S00.83XA Contusion of other part of head, initial encounter; S80.01XA Contusion of right knee, initial encounter; R51 Headache; M54.2 Cervicalgia; M25.561 Pain in right knee; W01.0XXA Fall on same level from slipping, tripping and stumbling without subsequent striking against object, initial encounter; Y93.89 Activity, other specified; Y92.002 Bathroom of unspecified non-institutional (private) residence as the place of occurrence of the external cause; I25.10 Atherosclerotic heart disease of native coronary artery without angina pectoris; I10 Essential (primary) hypertension; E11.9 Type 2 diabetes mellitus without complications; Z95.5 Presence of coronary angioplasty implant and graft
CPT/HCPCS: 99284; 73564; 70450; 72125; L0120

== ENCOUNTER → 2017-09-06 | Outpatient (CLI) | payer MEDICARE ==
--- NOTE | 2017-09-06 15:06 | WOMENS IMAGING REPORT ---
EXAM DESCRIPTION: 3D SCREENING MAMMO BILAT COMPLETED DATE/TIME: 09/06/2017 10:51 am REASON FOR STUDY: BILATERAL SCREENING MAMMO 3D/Z12.31 Z12.31 ENCNTR SCREEN MAMMOGRAM FOR MALIGNANT NEOPLASM OF [place] COMPARISON: Multiple since 2008 TECHNIQUE: Standard craniocaudal and mediolateral oblique views of each breast recorded using digita l acquisition and breast tomosynthesis. LIMITATIONS: None. FINDINGS: Findings present which are benign by mammographic criteria. No suspicious masses, calcifi cations or architectural distortion. Pertinent benign findings: Stable benign bilateral breast parenchymal and vascular calcifications Read with the assistance of CAD. .[facility] - R2 Cenova Version 1.3 .[facility] - R2 Cenova Version 1.3 .[facility] - R2 Cenova Version 2.4 .[facility] [place] R2 Cenova Version 2.4 .[facility] - R2 Supervisor General Version 9.2 Benign mammographic findings may include one or more of the following: Smooth masses, popcorn/rim/co arse calcifications, asymmetries, post-procedure changes, and lesions with long-standing stability. IMPRESSION: BENIGN MAMMOGRAPHIC FINDINGS. BIRADS 2 BREAST DENSITY: b. There are scattered areas of fibroglandular density. BIRAD: 2 BENIGN FINDING(S) RECOMMENDATION: RECOMMENDATION: ROUTINE SCREENING Please continue yearly bilateral screening mammography/tomosynthesis in August 2018 COMMENT: The patient has been notified of the results by letter per SA requirements. Additional no tification policies are in place for contacting patient with suspicious or incomplete findings. Quality ID #[id number]: The [employer] recommends an annual screening mammogram for women aged 40 years or over. This facility utilizes a reminder system to ensure that all patients receive reminder letters, and/or direct phone calls for appointments. This includes reminders for routine scr eening mammograms, diagnostic mammograms, or other Breast Imaging Interventions when appropriate. Th is patient will be placed in the appropriate reminder system. The [employer] (ACR) has developed recommendations for screening MRI of the breast s in certain patient populations, to be used in conjunction with mammography. Breast MRI surveillanc e may be appropriate for women with more than 20% lifetime risk of developing breast cancer as deter mined by genetic testing, significant family history of the disease, or history of mantle radiation f or Hodgkins Disease. ACR Practice Guidelines 2008. DBT Technology DBT is a type of tomographic mammography. With conventional mammography, overlapping breast tissue ma y make lesions difficult to detect, even with good compression. DBT uses an x-ray tube that rotates a round the breast, taking images at different angles. These images are then combined to create thin sl ices of the breast that the radiologist can view as a 3D reconstruction. The [employer] unit can perform full-field digital mammograms (2D imaging); or DBT (3D imaging); or both, in a combination mode that quickly performs both the mammogram and the tomosynthesis scan while the breast is still compressed. PQRS 6045F: Fluoroscopic imaging is not utilized for breast tomosynthesis. TECHNICAL DOCUMENTATION: FINDING NUMBER: (1) ASSESSMENT: (1) JOB ID: [id number] [employer]- All Rights Reserved Reading location - IP/workstation name: [email or web address]
== END ==
LOC: WI 10:13
PROVIDERS: ATTEND Physician Assistant
DX: Z12.31 Encounter for screening mammogram for malignant neoplasm of breast (principal)
CPT/HCPCS: 77063; 77067

== ENCOUNTER 2017-10-26 07:38 | Day surgery (SDC) | payer MEDICARE ==
[~2017-10-26 07:38] MED LIST: FENTANYL CITRATE INJ/PF 100 MCG/2 ML AMPUL ONE; LIDOCAINE 2% INJ-PF (100 MG/5 ML) SYRINGE ONE; MIDAZOLAM 2 MG/2 ML INJ ONE; PROPOFOL INJ 200 MG/20 ML VIAL IV ONE
[2017-10-26] MEDS ORDERED: DIPHENHYDRAMINE HCL 50 MG/ML VIAL IV PRN (10:13)
[2017-10-26] MEDS ORDERED: ONDANSETRON HCL INJ/PF 4 MG/2 ML SDV IV PRN (10:13)
[2017-10-26] MEDS ORDERED: FENTANYL CITRATE INJ/PF 100 MCG/2 ML AMPUL IV PRN ×3 (10:13)
[2017-10-26] MEDS ORDERED: PROMETHAZINE HCL INJ 25 MG/1 ML VIAL IV PRN ×2 (10:13)
[2017-10-26] MEDS ORDERED: MEPERIDINE HCL/PF INJ 25 MG/1 ML DISP.SYRIN IV PRN (10:13)
[2017-10-26 12:15] VITALS: BP 152/86
--- NOTE | 2017-10-26 12:32 | Operative Report ---
Operative Report DATE OF SURGERY: 10/26/17 Operative Report: The risks, benefits and alternatives of the procedure including the risks of bleeding, perforation requiring surgery are explained to the patient in detail and informed consent is obtained. Patient is brought back to the operating room and placed in the left, lateral decubital position. Timeout was called. Propofol medication is administered. A rectal examination is done which did not reveal any masses, tears or fissures. An Olympus videoscope was inserted into the patient's rectum. The scope was then carefully advanced all the way to the cecum. The cecum was identified by the usual anatomical landmarks including the ileocecal valve as well as the appendiceal office. Photodocumentation is obtained. Scope was then sequentially pulled back via the various segments of the colon including the ascending colon, hepatic flexure , transverse colon, splenic flexure, descending colon and finally into the rectosigmoid portions of the colon. Retroflexion maneuvers performed. PREOPERATIVE DIAGNOSIS: Change in bowel habits. Personal history of colon polyp POSTOPERATIVE DIAGNOSIS: Left and right-sided colon inflammation status post biopsy. Internal and external hemorrhoids OPERATION: Colonoscopy with biopsy SURGEON: JITENDRA NEVES ANESTHESIA: LMAC TISSUE REMOVED OR ALTERED: As noted above. COMPLICATIONS: None. ESTIMATED BLOOD LOSS: None. INTRAOPERATIVE FINDINGS: As noted above. PROCEDURE: Patient tolerated procedure well. No immediate postprocedure comp occasions are noted. Patient discharged in good condition. Discharge date 10/26/2017. Discharge diet: Regular. Discharge activity: Regular. 2-3 week follow-up to discuss findings. Patient is instructed to call the office or proceed to the emergency room should there be any further problems or questions. We will wait on pathology.
--- NOTE | 2017-10-26 12:54 | EKG REPORT ---
SEVERITY:- ABNORMAL ECG - SINUS RHYTHM LEFT VENTRICULAR HYPERTROPHY BORDERLINE T ABNORMALITIES, INFERIOR LEADS : Confirmed by: Reid Contreras MD 26-Oct-2017 12:53:41
== END 2017-10-26 12:08 | disposition home or self-care (01) ==
LOC: OROUT 07:38
PROVIDERS: ATTEND Internal Medicine Gastroenterology
DX: K52.9 Noninfective gastroenteritis and colitis, unspecified (principal); K64.8 Other hemorrhoids; K64.4 Residual hemorrhoidal skin tags; Z86.010 Personal history of colon polyps; E11.9 Type 2 diabetes mellitus without complications; I11.0 Hypertensive heart disease with heart failure; I50.23 Acute on chronic systolic (congestive) heart failure; I48.91 Unspecified atrial fibrillation; R00.1 Bradycardia, unspecified; I25.2 Old myocardial infarction; Z79.899 Other long term (current) drug therapy; Z79.82 Long term (current) use of aspirin; Z79.4 Long term (current) use of insulin; Z79.84 Long term (current) use of oral hypoglycemic drugs
CPT/HCPCS: 45380; 82962; 88305 ×2; 93005; 93010; J2250; J2001; J2704; 811; J3010

== ENCOUNTER 2018-01-16 14:44 | Emergency (ER) | payer MEDICARE ==
[2018-01-16 14:50] VITALS: BP 172/73
[2018-01-16] MEDS ORDERED: DIPH/PERTUSS(ACELL)/TETANUS VAC/PF 0.5 ML SYR (>=10YO) IM ONE (15:23)
[2018-01-16] MEDS ORDERED: ACETAMINOPHEN 325 MG TABLET PO ONE (15:25)
--- NOTE | 2018-01-16 15:29 | ER Document Report ---
ED General - General Chief Complaint: Fall Injury Stated Complaint: FALL/ARM, FOOT PAIN Time Seen by Provider: 01/16/18 15:14 TRAVEL OUTSIDE OF THE [place] IN LAST 30 DAYS: No - HPI Notes: Patient is a 72-year-old female that presents to the emergency department for chief complaint of left elbow knee and foot pain. Patient had a mechanical fall yesterday and tripped on a rug. She landed on her left side. She denies head injury or loss of consciousness. She is complaining of pain in her left elbow knee and foot. Her pain is worse with movement of the joint. She has not taken any medicine at home for her pain. She does not know when her last tetanus vaccine was. Patient also complaining of pain in her right ear for the last 2 days. She denies any fevers chills or headache. She denies drainage from the ear. Past Medical History: Reviewed in chart Past Surgical History: Reviewed in chart Social History: Denies drugs alcohol and tobacco Family History: Reviewed and noncontributory for presenting illness Allergies: Reviewed, see documented allergy list. REVIEW OF SYSTEMS: CONSTITUTIONAL : No fever No chills No diaphoresis No recent illness EENT: No vision changes No congestion No sore throat Ear pain CARDIOVASCULAR: No chest pain No palpitations RESPIRATORY: No shortness of breath No cough No difficulty breathing GASTROINTESTINAL: No abdominal pain No nausea No vomiting No diarrhea GENITOURINARY: No dysuria No hematuria No difficulty urinating MUSCULOSKELETAL: No back pain No leg pain Left knee pain Left foot pain Left elbow pain SKIN: No rashes No lesions LYMPHATIC: No swollen, enlarged glands. NEUROLOGICAL: No lightheadedness No headache No weakness No paresthesias PSYCHIATRIC: No anxiety No depression PHYSICAL EXAMINATION: Vital signs reviewed, nursing noted reviewed. GENERAL: Well-appearing, well-nourished and in no acute distress. HEAD: Atraumatic, normocephalic. EYES: Eyes appear normal, extraocular movements intact, sclera anicteric, conjunctiva are normal. ENT: nares patent, oropharynx clear without exudates. Moist mucous membranes. Normal left TM. Right TM erythema and dullness NECK: Normal range of motion, supple without lymphadenopathy LUNGS: Breath sounds clear to auscultation bilaterally and equal. No wheezes rales or rhonchi. HEART: Regular rate and rhythm without murmurs ABDOMEN: Soft, nontender, normoactive bowel sounds. No rebound, guarding, or rigidity. No masses appreciated. EXTREMITIES: Nontender, good range of motion, no pitting or edema. NEUROLOGICAL: No bony deformities, no focal neurological deficits. Moves all extremities spontaneously Motor and sensory grossly intact on exam. Tenderness to palpation over left patella and left olecranon process. Tenderness to palpation over left fifth toe PSYCH: Normal mood, normal affect. SKIN: Warm, Dry, normal turgor, superficial abrasion to left elbow over olecranon process and left knee over patella. Left fifth toe abrasion - Related Data Allergies/Adverse Reactions: No Known Allergies Allergy (Verified 01/16/18 14:46) Past Medical History - Social History Smoking Status: Never Smoker Chew tobacco use (# tins/day): No Frequency of alcohol use: None Drug Abuse: None Family History: CAD Patient has suicidal ideation: No Patient has homicidal ideation: No - Past Medical History Cardiac Medical History: Reports: Hx Congestive Heart Failure, Hx Coronary Artery Disease - HIGH CHOL, Hx Heart Attack - NSTEMI, Hx Hypercholesterolemia, Hx Hypertension Pulmonary Medical History: Denies: Hx Asthma, Hx Bronchitis, Hx COPD, Hx Pneumonia Neurological Medical History: Denies: Hx Cerebrovascular Accident, Hx Seizures Endocrine Medical History: Reports: Hx Diabetes Mellitus Type 1, Hx Diabetes Mellitus Type 2 Renal/ Medical History: Denies: Hx Peritoneal Dialysis GI Medical History: Reports: Hx Gastroesophageal Reflux Disease Musculoskeletal Medical History: Reports Hx Arthritis Psychiatric Medical History: Reports: Hx Depression Past Surgical History: Reports: Hx Cardiac Catheterization - stent x1, Hx Cardiac Surgery - Pacemaker, Hx Section - x3, Hx Coronary Stent, Hx Open Heart Surgery, Hx Tubal Ligation. Denies: Hx Hysterectomy - Immunizations Hx Diphtheria, Pertussis, Tetanus Vaccination: Yes - 2009 Hx Pneumococcal Vaccination: 02/26/11 Review of Systems - Review of Systems Notes: Dictated Physical Exam - Vital signs Vitals: Temp Pulse Resp BP Pulse Ox 98.3 F 99 16 172/73 H 96 01/16/18 14:49 01/16/18 14:49 01/16/18 14:49 01/16/18 14:49 01/16/18 14:49 - Notes Notes: Dictated Course - Re-evaluation Re-evalutation: 01/16/18 16:19 Vitals reviewed. Nursing notes reviewed. Patient afebrile and nontoxic- appearing. She does have erythema to her right TM and has had pain in that area for 2 days. She will be started on Augmentin for right otitis media. X- ray of the left knee and elbow show no acute injury. She does have a small fracture of the distal end of her left fifth metatarsal and will be placed in a postop shoe for splinting. Patient will be referred to orthopedics for follow- up. She will be given [place] for pain at home. Tetanus vaccine was updated. She was discharged home in stable condition. Elbow X-Ray 01/16/18 15:23 IMPRESSION: NEGATIVE STUDY OF THE LEFT ELBOW. NO RADIOGRAPHIC EVIDENCE OF ACUTE INJURY. Foot X-Ray 01/16/18 15:23 IMPRESSION: Fracture distal 5th metatarsal. Calcaneal spurs. Knee X-Ray 01/16/18 15:23 IMPRESSION: NEGATIVE STUDY OF THE LEFT KNEE. NO RADIOGRAPHIC EVIDENCE OF ACUTE INJURY. - Vital Signs Vital signs: Temp Pulse Resp BP Pulse Ox 98.3 F 99 16 172/73 H 96 01/16/18 14:49 01/16/18 14:49 01/16/18 14:49 01/16/18 14:49 01/16/18 14:49 Discharge - Discharge Clinical Impression: Otitis media, right Qualifiers: Otitis media type: unspecified Qualified Code(s): H66.91 - Otitis media, unspecified, right ear Fracture of fifth metatarsal bone Qualifiers: Encounter type: initial encounter Fracture type: closed Fracture alignment: nondisplaced Laterality: left Qualified Code(s): S92.355A - Nondisplaced fracture of fifth metatarsal bone, left foot, initial encounter for closed fracture Condition: Good Disposition: HOME, SELF-CARE Instructions: Foot Fracture ([facility]), Otitis Media ([facility]) Prescriptions: Amox Tr/Potassium Clavulanate [Augmentin 875-125 Tablet] 1 tab PO BID 10 Days tablet Hydrocodone/Acetaminophen [[place] 5-325 mg Tablet] 0.5 - 1 tab PO Q6 PRN #12 tablet PRN Reason: pain Referrals: MALATHI DAVILA PA-C [Primary Care Provider] - Follow up in 3-5 days JOO KRISHNA MD [ACTIVE STAFF] - Follow up in 1 week
--- NOTE | 2018-01-16 16:12 | RADIOLOGY REPORT (SQ) ---
EXAM DESCRIPTION: FOOT LEFT COMPLETE COMPLETED DATE/TIME: 01/16/2018 3:57 pm REASON FOR STUDY: trauma COMPARISON: None. NUMBER OF VIEWS: Three views. TECHNIQUE: AP, lateral and oblique radiographic images acquired of the left foot. LIMITATIONS: None. FINDINGS: MINERALIZATION: Normal. BONES: There is a fracture involving the distal aspect of the 5th metatarsal. On 1st glance it appea rs that this involves the lateral aspect of the head of the 1st metatarsal. On close inspection, it is possible that involves the neck of the 1st metatarsal as well. Prominent plantar and dorsal calca bertha spurs are present. JOINTS: No effusions. SOFT TISSUES: No soft tissue swelling. No foreign body. OTHER: No other significant finding. IMPRESSION: Fracture distal 5th metatarsal. Calcaneal spurs. TECHNICAL DOCUMENTATION: JOB ID: [id number] [employer]- All Rights Reserved Reading location - IP/workstation name: [email or web address]
--- NOTE | 2018-01-16 16:13 | RADIOLOGY REPORT (SQ) ---
EXAM DESCRIPTION: KNEE LEFT 4 VIEW COMPLETED DATE/TIME: 01/16/2018 3:57 pm REASON FOR STUDY: trauma COMPARISON: None. NUMBER OF VIEWS: Four views. TECHNIQUE: AP, lateral, and both oblique radiographic images acquired of the left knee. LIMITATIONS: None. FINDINGS: MINERALIZATION: Normal. BONES: No acute fracture or dislocation. No worrisome bone lesions. JOINT: No effusion. SOFT TISSUES: No soft tissue swelling. No radio-opaque foreign body. OTHER: No other significant finding. IMPRESSION: NEGATIVE STUDY OF THE LEFT KNEE. NO RADIOGRAPHIC EVIDENCE OF ACUTE INJURY. TECHNICAL DOCUMENTATION: JOB ID: [id number] [employer]- All Rights Reserved Reading location - IP/workstation name: [email or web address]
--- NOTE | 2018-01-16 16:13 | RADIOLOGY REPORT (SQ) ---
EXAM DESCRIPTION: ELBOW LEFT AP/LATERAL COMPLETED DATE/TIME: 01/16/2018 3:57 pm REASON FOR STUDY: trauma COMPARISON: None. NUMBER OF VIEWS: Four views. TECHNIQUE: AP, lateral, and both oblique radiographic images acquired of the left elbow. LIMITATIONS: None. FINDINGS: MINERALIZATION: Normal. BONES: No acute fracture or dislocation. No worrisome bone lesions. JOINT: No effusion. SOFT TISSUES: No soft tissue swelling. No foreign body. OTHER: No other significant finding. IMPRESSION: NEGATIVE STUDY OF THE LEFT ELBOW. NO RADIOGRAPHIC EVIDENCE OF ACUTE INJURY. TECHNICAL DOCUMENTATION: JOB ID: [id number] [employer]- All Rights Reserved Reading location - IP/workstation name: [email or web address]
== END 2018-01-16 16:45 | disposition home or self-care (01) ==
LOC: ER 14:44
DX: S92.355A Nondisplaced fracture of fifth metatarsal bone, left foot, initial encounter for closed fracture (principal); S50.312A Abrasion of left elbow, initial encounter; S80.212A Abrasion, left knee, initial encounter; M25.522 Pain in left elbow; M25.562 Pain in left knee; W01.0XXA Fall on same level from slipping, tripping and stumbling without subsequent striking against object, initial encounter; H66.91 Otitis media, unspecified, right ear; M77.32 Calcaneal spur, left foot; I25.10 Atherosclerotic heart disease of native coronary artery without angina pectoris; I10 Essential (primary) hypertension; E11.9 Type 2 diabetes mellitus without complications; M79.672 Pain in left foot
CPT/HCPCS: 99283; 73070; 73630; 73564; 90715; A9270

== ENCOUNTER 2018-03-24 14:42 | Observation (INO) | payer MEDICARE ==
[2018-03-24] MEDS ORDERED: NORMAL SALINE 1000 ML 1,000 ML IV ONE ×2 (14:59→17:12)
--- NOTE | 2018-03-24 15:10 | ER Document Report ---
ED General - General Chief Complaint: Fever Stated Complaint: FEVER Time Seen by Provider: 03/24/18 14:57 Primary Care Provider: MALATHI DAVILA PA-C [Primary Care Provider] - Follow up as needed TRAVEL OUTSIDE OF THE [place] IN LAST 30 DAYS: No - HPI Notes: Patient is a 72-year-old female with a history of coronary disease with 1 stent placement, congestive heart failure, insulin-dependent diabetes who presents to the emergency department by EMS complaining of feeling generally weak, dry nonproductive cough, nasal congestion/discharge, fever, and increased urinary frequency over the past 2 days. Patient states that the fever has primarily been occurring today and will occ have a mild DAS. Patient states that she has been eating and drinking without any difficulty. She is having normal bowel movements. Patient states that she feels she has a cold. Denies any neck erica n/stiffness, changes in vision/speech/mentation/hearing, sore throat, chest pain, palpitations, syncope, shortness of breath, wheeze, dyspnea, abdominal pain, nausea/vomiting/diarrhea, urinary retention, hematuria, back pain, loss of control of bowel or bladder, numbness/tingling, muscle paralysis, or rash. - Related Data Allergies/Adverse Reactions: No Known Allergies Allergy (Verified 01/16/18 14:46) Past Medical History - Social History Smoking Status: Never Smoker Family History: CAD Patient has suicidal ideation: No Patient has homicidal ideation: No - Past Medical History Cardiac Medical History: Reports: Hx Congestive Heart Failure, Hx Coronary Artery Disease - HIGH CHOL, Hx Heart Attack - NSTEMI, Hx Hypercholesterolemia, Hx Hypertension Pulmonary Medical History: Denies: Hx Asthma, Hx Bronchitis, Hx COPD, Hx Pneumonia Neurological Medical History: Denies: Hx Cerebrovascular Accident, Hx Seizures Endocrine Medical History: Reports: Hx Diabetes Mellitus Type 1, Hx Diabetes Me llitus Type 2 Renal/ Medical History: Denies: Hx Peritoneal Dialysis GI Medical History: Reports: Hx Gastroesophageal Reflux Disease Musculoskeletal Medical History: Reports Hx Arthritis Psychiatric Medical History: Reports: Hx Depression Past Surgical History: Reports: Hx Cardiac Catheterization - stent x1, Hx Cardiac Surgery - Pacemaker, Hx Section - x3, Hx Coronary Stent, Hx Open Heart Surgery, Hx Tubal Ligation. Denies: Hx Hysterectomy - Immunizations Hx Diphtheria, Pertussis, Tetanus Vaccination: Yes - 2009 Hx Pneumococcal Vaccination: 02/26/11 Review of Systems - Review of Systems -: Yes All other systems reviewed and negative Physical Exam - Vital signs Vitals: Pulse Ox 94 03/24/18 15:50 - Notes Notes: PHYSICAL EXAMINATION: GENERAL: Well-appearing, well-nourished and in no acute resp distress. A&Ox4. Answers questions appropriately. HEAD: Atraumatic, normocephalic. Non-tender. EYES: Pupils equal round and reactive to light, extraocular movements intact, sclera anicteric, conjunctiva are normal. No nystagmus. vis ghotra intact. ENT: EAC clear b/l. TM's intact b/l without erythema, fluid, or perforation. Nares patent and with scant clear discharge. oropharynx clear without exudates. No tonsilar hypertrophy or erythema. Moist mucous membranes. No sinus tenderness. NECK: Normal range of motion, supple without lymphadenopathy. No rigidity/meningismus. No midline tenderness. LUNGS: Breath sounds clear to auscultation bilaterally and equal. No wheezes rales or rhonchi. HEART: Regular rate and rhythm without murmurs, rubs, gallops. ABDOMEN: Soft, nontender, nondistended abdomen. No guarding, no rebound. Normal bowel sounds present. No CVA tenderness bilaterally. Musculoskeletal: Ext's b/l: FROM to passive/active. Strength 5+/5. No deficits noted. No bony tenderness of extremities. Extremities: No cyanosis, clubbing, or edema b/l. Peripheral pulses 2+. Capillary refill less than 2 seconds. NEUROLOGICAL: GCS 15. Cranial nerves grossly intact. Normal speech. Normal sensory, motor exams. Reflexes 2+ b/l. PSYCH: Normal mood, normal affect. SKIN: Warm, Dry, normal turgor, no rashes or lesions noted. Course - Re-evaluation Re-evalutation: 03/24/18 15:15 Pt is non-toxic appearing and is in no acute distress. Pt received zofran and tylenol by EMS. We will obtain labs, give fluids, and obtain a CXR. Pt in agreement with plan. 03/24/18 17:13 Patient is a 72-year-old female who presents emergency department with a fever, acute URI, and possible UTI. Patient has been mildly tachycardic from 106-110. Her pulse ox has ranged from 91% to 94% on room air. Patient did spike a fever of 101.8 when she was given Toradol for. Patient states that after the medicine was given she started feeling much better. She has received fluids as well as nausea medicine. I did review with Dr. Langston who recommends admission to the hospital. Chest x-ray was otherwise unremarkable. Influenza was negative. CBC shows a mildly elevated white count with a left shift, no bandemia. CMP and lactic acid unremarkable. See urinalysis. Blood and urine cultures are pending. I did review with our hospitalist, Dr. Andres, who accepted patient for observation and would like us to hold off on any Rocephin or antibiotic at this time. I did review this with the family and patient who are in agreement with this plan. - Vital Signs Vital signs: Temp Pulse Resp BP Pulse Ox 101.8 F H 94 03/24/18 16:17 03/24/18 15:50 - Laboratory Result Diagrams: 03/24/18 15:56 03/24/18 15:56 Laboratory results interpreted by me: 03/24/18 03/24/18 03/24/18 15:24 15:56 15:56 WBC 11.0 H Hgb 11.7 L Hct 35.1 L Plt Count 139 L Seg Neutrophils % 89.0 H Lymphocytes % 5.1 L Absolute Neutrophils 9.8 H Sodium 135.6 L Glucose 241 H Urine Protein 30 H Urine Ketones TRACE H Ur Leukocyte Esterase TRACE H Discharge - Discharge Clinical Impression: Urinary frequency, Acute URI Fever Qualifiers: Fever type: unspecified Qualified Code(s): R50.9 - Fever, unspecified Condition: Stable Disposition: ADMITTED OBSERVATION Admitting Provider: Hospitalist - Dr. Andres Unit Admitted: Medical Floor Referrals: MALATHI DAVILA PA-C [Primary Care Provider] - Follow up as needed
[2018-03-24 16:07] LABS: ABSOLUTE EOSINOPHILS # (AUTO) 0.1 10^3/uL (0.0-0.6); ABSOLUTE LYMPHOCYTES (AUTO) 0.6 10^3/uL (0.5-4.7); ABSOLUTE MONOCYTES (AUTO) 0.6 10^3/uL (0.1-1.4); ABSOLUTE NEUT (AUTO) 9.8 10^3/uL (1.7-8.2); BASOPHILS % (AUTO) 0.1 % (0-2); EOSINOPHILS % (AUTO) 0.5 % (0-6); HEMATOCRIT 35.1 % (36.0-47.0); HEMOGLOBIN 11.7 g/dL (12.0-15.5); LYMPHOCYTES % (AUTO) 5.1 % (13-45); MEAN CORPUSCULAR HEMOGLOBIN 29.2 pg (27.0-33.4); MEAN CORPUSCULAR HGB CONC 33.5 g/dL (32.0-36.0); MEAN CORPUSCULAR VOLUME 87 fl (80-97); MONOCYTES % (AUTO) 5.3 % (3-13); PLATELET COUNT 139 10^3/uL (150-450); RED BLOOD COUNT 4.02 10^6/uL (3.72-5.28); TOTAL CELLS COUNTED % (AUTO) 100 %
[2018-03-24 16:08] LABS: APPEARANCE,URINE CLEAR; BILIRUBIN,URINE NEGATIVE (NEGATIVE); COLOR,URINE YELLOW; GLUCOSE, URINE NEGATIVE (NEGATIVE); KETONES,URINE TRACE mg/dL (NEGATIVE); LEUKOCYTE ESTERASE,URINE TRACE (NEGATIVE); NITRITE,URINE NEGATIVE (NEGATIVE); PROTEIN,URINE 30 mg/dL (NEGATIVE); URINE SPECIFIC GRAVITY 1.011; UROBILINOGEN,URINE NEGATIVE mg/dL (<2.0)
[2018-03-24] MEDS ORDERED: KETOROLAC TROMETHAMINE INJ/PF 30 MG/1 ML SDV IV ONE (16:19)
[2018-03-24 16:27] LABS: ALANINE AMINOTRANSFERASE 30 U/L (9-52); ALBUMIN 3.7 g/dL (3.5-5.0); ALKALINE PHOSPHATASE 63 U/L (38-126); ANION GAP 7 (5-19); ASPARTATE AMINO TRANSFERASE 25 U/L (14-36); BILIRUBIN,DIRECT 0.2 mg/dL (0.0-0.4); BILIRUBIN,TOTAL 0.5 mg/dL (0.2-1.3); BLOOD UREA NITROGEN 19 mg/dL (7-20); CALCIUM 9.3 mg/dL (8.4-10.2); CARBON DIOXIDE 28 mmol/L (22-30); CHLORIDE 101 mmol/L (98-107); GLUCOSE 241 mg/dL (75-110); POTASSIUM 4.6 mmol/L (3.6-5.0); SODIUM 135.6 mmol/L (137-145); TOTAL PROTEIN 6.3 g/dL (6.3-8.2)
[2018-03-24] MEDS ORDERED: IPRATROPIUM/ALBUTEROL 0.5-2.5 MG/3 ML AMPUL NEB ONE (16:32)
[2018-03-24 16:34] LABS: A TYPE INFLUENZA AG NEGATIVE (NEGATIVE); B INFLUENZA AG NEGATIVE (NEGATIVE)
[2018-03-24] MEDS ORDERED: ONDANSETRON HCL INJ/PF 4 MG/2 ML SDV IV ONE (16:46)
--- NOTE | 2018-03-24 16:46 | RADIOLOGY REPORT (SQ) ---
EXAM DESCRIPTION: CHEST SINGLE VIEW COMPLETED DATE/TIME: 03/24/2018 4:10 pm REASON FOR STUDY: fever, cough COMPARISON: Chest x-ray 11/25/2016. EXAM PARAMETERS: NUMBER OF VIEWS: One view. TECHNIQUE: Single frontal radiographic view of the chest acquired. RADIATION DOSE: NA LIMITATIONS: None. FINDINGS: LUNGS AND PLEURA: No consolidation, pneumothorax or pleural effusion. MEDIASTINUM AND HILAR STRUCTURES: No masses. Contour normal. HEART AND VASCULAR STRUCTURES: Heart normal in size. Normal vasculature. BONES: No acute findings. HARDWARE: There is a left-sided pacemaker. Sternotomy wires are present. IMPRESSION: NO ACUTE RADIOGRAPHIC FINDING IN THE CHEST. TECHNICAL DOCUMENTATION: JOB ID: [id number] [employer]- All Rights Reserved Reading location - IP/workstation name: [email or web address]
[2018-03-24] MEDS ORDERED: CEFTRIAXONE 1 GM/D5W RTU 50 ML IV ONE (17:04)
[2018-03-24] MEDS ORDERED: METOCLOPRAMIDE HCL INJ/PF 10 MG/2 ML SDV IV ONE (17:08)
[2018-03-24] MEDS: METOPROLOL TARTRATE 25 MG TABLET PO SCH (22:07)
--- NOTE | 2018-03-25 01:22 | PDOC H&P ---
History of Present Illness Admission Date/PCP: 03/24/18 17:26 MALATHI DAVILA PA-C Patient complains of: Generalized weakness History of Present Illness: IRMA CASE is a 72 year old female who presented to the emergency room with a 1-day history of generalized weakness. She admits a sudden onset generalized weakness associated with a subjective fever, chills with severely intense rigors, nausea, nasal congestion alternating with rhinorrhea, occasional non productive cough, intermittent mild to moderate generalized headache and urinary frequency since just after her breakfast this morning. She admits to having similar episodes in the past when she has had a "cold" and she has not identified any aggravating or ameliorating factors for her current symptoms. She rates her weakness at the present time as moderate and admits that it is the primary reason why she came to the emergency room. In the emergency room she was found to have a mildly elevated white blood count and a elevated temperature of 100.7 F. Remainder of her evaluation was unremarkable but due to her progressive symptoms and her multiple comorbidities (heart disease and diabetes mellitus) it was felt to be appropriate to admit the patient under observation status for further evaluation and treatment. Past Medical History Cardiac Medical History: Reports: Congestive Heart Failure, Coronary Artery Disease - HIGH CHOL, Myocardial Infarction - NSTEMI, Hyperlipidema, Hypertension Pulmonary Medical History: Denies: Asthma, Bronchitis, Chronic Obstructive Pulmonary Disease (COPD), Pneumonia EENT Medical History: Reports: None Neurological Medical History: Denies: Hemorrhagic CVA, Ischemic CVA, Multiple Sclerosis, Seizures Endocrine Medical History: Reports: Diabetes Mellitus Type 2 Denies: Hyperthyroidism, Hypothyroidism Renal/ Medical History: Denies: Chronic Kidney Disease, Nephrolithiasis Malignancy Medical History: Reports: None GI Medical History: Reports: Gastroesophageal Reflux Disease Denies: Cirrhosis, Hepatitis Musculoskeltal Medical History: Reports: Arthritis Denies: Gout Skin Medical History: Denies: Eczema, Psoriasis Psychiatric Medical History: Reports: Depression Denies: Alcohol Dependency, Substance Abuse, Tobacco Dependency Hematology: Reports: Anemia Past Surgical History Past Surgical History: Reports: Cardiac Catheterization - stent x1, Section - x3, Coronary Stent, Pacemaker, Tubal Ligation Social History Information Source: Patient Lives with: Spouse/Significant other Smoking Status: Never Smoker Frequency of Alcohol Use: Rare Hx Recreational Drug Use: No Drugs: None Hx Prescription Drug Abuse: No - Advance Directive Resuscitation Status: Full Code Surrogate healthcare decision maker:: Spouse Family History Family History: CAD, DM, Hypertension, Malignancy - father Parental Family History Reviewed: Yes Children Family History Reviewed: No Sibling(s) Family History Reviewed.: Yes Medication/Allergy Home Medications: Benazepril HCl [Lotensin 5 mg Tablet] 5 mg PO DAILY 04/10/17 Meclizine HCl [Antivert 25 mg Tablet] 25 mg PO Q8HP PRN 04/10/17 Metoprolol Tartrate [Lopressor 25 mg Tablet] 25 mg PO Q12 04/10/17 Multivitamin [Tab-A-Guera (Multiple Vitamin) Tablet] 1 tab PO DAILY 04/10/17 Sertraline HCl [Zoloft] 150 mg PO DAILY 04/10/17 Polyethylene Glycol 3350 [Miralax Powder 17 gm/Packet] 17 gm PO DAILY powd.pack 04/12/17 Aspirin 81 mg PO DAILY 10/26/17 Atorvastatin Calcium 40 mg PO DAILY 10/26/17 Docusate Sodium 100 mg PO DAILY 10/26/17 Gabapentin 300 mg PO TID 10/26/17 Glipizide [Glipizide ER] 5 mg PO TID 10/26/17 Insulin Glargine,Hum.rec.anlog [Lantus Solostar] 100 unit SUBCUT DAILY 10/26/17 Metformin HCl 1,000 mg PO DAILY 10/26/17 Amox Tr/Potassium Clavulanate [Augmentin 875-125 Tablet] 1 tab PO BID 10 Days tablet 01/16/18 Hydrocodone/Acetaminophen [[place] 5-325 mg Tablet] 0.5 - 1 tab PO Q6 PRN #12 tablet 01/16/18 Allergies/Adverse Reactions: No Known Allergies Allergy (Verified 01/16/18 14:46) Review of Systems Constitutional: PRESENT: as per HPI, chills, fever(s), weakness - Generalized, other - rigors. ABSENT: anorexia Eyes: ABSENT: visual disturbances, other - Ocular pain Ears: ABSENT: hearing changes, other - Ear pain Nose, Mouth, and Throat: PRESENT: as per HPI, headache(s), other - Nasal congestion and rhinorrhea. ABSENT: mouth pain, sore throat Cardiovascular: ABSENT: chest pain, dyspnea on exertion, edema, orthropnea, palpitations Respiratory: PRESENT: cough. ABSENT: dyspnea, hemoptysis, sputum Gastrointestinal: ABSENT: abdominal pain, constipation, diarrhea, nausea, vomiting Genitourinary: PRESENT: as per HPI, other - Urinary frequency. ABSENT: dysuria, hematuria Integumentary: ABSENT: pruritus, rash Neurological: ABSENT: confusion, convulsions, memory loss, tremor(s) Psychiatric: ABSENT: anxiety, depression Endocrine: ABSENT: cold intolerance, heat intolerance Hematologic/Lymphatic: ABSENT: easy bleeding, easy bruising Physical Exam Vital Signs: Temp Pulse Resp BP Pulse Ox 100.7 F H 15 107/46 L 94 03/24/18 17:24 03/24/18 19:01 03/24/18 19:01 03/24/18 19:01 Intake & Output 03/22/18 03/23/18 03/24/18 23:59 23:59 23:59 Intake Total 1000 Balance 1000 General appearance: PRESENT: no acute distress, cooperative Head exam: PRESENT: atraumatic, normocephalic Eye exam: PRESENT: conjunctiva pink, EOMI. ABSENT: scleral icterus Ear exam: PRESENT: normal external ear exam. ABSENT: bleeding, drainage Mouth exam: PRESENT: dry mucosa, neck supple Neck exam: ABSENT: thyromegaly, tracheal deviation Respiratory exam: PRESENT: clear to auscultation park, symmetrical, unlabored Cardiovascular exam: PRESENT: RRR. ABSENT: clicks, gallop, rubs Pulses: PRESENT: normal radial pulses, normal dorsalis pedis pul Vascular exam: PRESENT: normal capillary refill. ABSENT: pallor GI/Abdominal exam: PRESENT: normal bowel sounds, soft. ABSENT: tenderness Rectal exam: PRESENT: deferred Extremities exam: ABSENT: joint swelling, pedal edema Musculoskeletal exam: PRESENT: full ROM, normal inspection Neurological exam: PRESENT: alert, oriented to person, oriented to place, oriented to time, oriented to situation, CN II-XII grossly intact. ABSENT: motor sensory deficit Psychiatric exam: PRESENT: appropriate affect, normal mood Skin exam: PRESENT: dry, intact, warm. ABSENT: jaundice, rash, urticaria Results Laboratory Results: 03/24/18 15:56 03/24/18 15:56 03/24/18 03/24/18 03/24/18 15:24 15:56 15:56 WBC 11.0 H RBC 4.02 Hgb 11.7 L Hct 35.1 L MCV 87 MCH 29.2 MCHC 33.5 RDW 14.0 Plt Count 139 L Seg Neutrophils % 89.0 H Lymphocytes % 5.1 L Monocytes % 5.3 Eosinophils % 0.5 Basophils % 0.1 Absolute Neutrophils 9.8 H Absolute Lymphocytes 0.6 Absolute Monocytes 0.6 Absolute Eosinophils 0.1 Absolute Basophils 0.0 Sodium 135.6 L Potassium 4.6 Chloride 101 Carbon Dioxide 28 Anion Gap 7 BUN 19 Creatinine 0.53 Est GFR ( Amer) > 60 Est GFR (Non-Af Amer) > 60 Glucose 241 H Lactic Acid Calcium 9.3 Total Bilirubin 0.5 AST 25 ALT 30 Alkaline Phosphatase 63 Total Protein 6.3 Albumin 3.7 Urine Color YELLOW Urine Appearance CLEAR Urine pH 8.0 Ur Specific [place] 1.011 Urine Protein 30 H Urine Glucose (UA) NEGATIVE Urine Ketones TRACE H Urine Blood NEGATIVE Urine Nitrite NEGATIVE Ur Leukocyte Esterase TRACE H Urine WBC (Auto) 8 Urine RBC (Auto) 4 03/24/18 15:56 WBC RBC Hgb Hct MCV MCH MCHC RDW Plt Count Seg Neutrophils % Lymphocytes % Monocytes % Eosinophils % Basophils % Absolute Neutrophils Absolute Lymphocytes Absolute Monocytes Absolute Eosinophils Absolute Basophils Sodium Potassium Chloride Carbon Dioxide Anion Gap BUN Creatinine Est GFR ( Amer) Est GFR (Non-Af Amer) Glucose Lactic Acid 0.9 Calcium Total Bilirubin AST ALT Alkaline Phosphatase Total Protein Albumin Urine Color Urine Appearance Urine pH Ur Specific [place] Urine Protein Urine Glucose (UA) Urine Ketones Urine Blood Urine Nitrite Ur Leukocyte Esterase Urine WBC (Auto) Urine RBC (Auto) Impressions: Chest X-Ray 03/24/18 15:08 IMPRESSION: NO ACUTE RADIOGRAPHIC FINDING IN THE CHEST. Assessment & Plan - Diagnosis (1) Weakness Is this a current diagnosis for this admission?: Yes Plan: Patient's generalized weakness will be treated with supportive measures and symp tomatic cares. She will receive IV fluids and be carefully monitored for changes in her condition. (2) Upper respiratory infection with cough and congestion Is this a current diagnosis for this admission?: Yes Plan: Patient's upper respiratory infection be treated with supportive measures and symptomatic cares for her cough congestion and any other symptoms which may arise. (3) Elevated temperature Is this a current diagnosis for this admission?: Yes Plan: Patient's elevated temperature will be observed and treated if it rises to the level of a true fever. Treatment will be with acetaminophen 650 mg p.o. every 4 hours as needed for fever greater than 101.5 F (4) Urinary frequency Is this a current diagnosis for this admission?: Yes Plan: Patient's urinary frequency will be observed for progression to other symptomology or signs of urinary tract disease. (5) CAD (coronary artery disease) Qualifiers: Coronary Disease-Associated Artery/Lesion type: [place] artery [place] vs. transplanted heart: [place] heart Associated angina: angina presence unspecified Qualified Code(s): I25.10 - Atherosclerotic heart disease of [place] coronary artery without angina pectoris Is this a current diagnosis for this admission?: Yes Plan: Patient will be continued on her usual cardiac medications at her prescribed doses. Changes to therapy will be made only as required. 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 Changes to therapy will be made only as required. Hemoglobin A1c will be obtained to evaluate efficacy of current therapy. - Time Time Spent: 30 to 50 Minutes Critical Time spent with patient: Less than 15 minutes Medications reviewed and adjusted accordingly: Yes Anticipated discharge: Home - Inpatient Certification Based on my medical assessment, after consideration of the patient's comorbidities, presenting symptoms, or acuity I expect that the services needed warrant INPATIENT care.: No I certify that my determination is in accordance with my understanding of Medicare's requirements for reasonable and necessary INPATIENT services [42 CFR 412.3e].: No Medical Necessity: Need Close Monitoring Due to Risk of Patient Decompensation, Need For IV Fluids, Risk of Complication if Not Cared For in Hospital
[2018-03-25] MEDS ORDERED: ONDANSETRON 4 MG TAB.RAPDIS PO PRN (04:37)
[2018-03-25] MEDS ORDERED: MAG HYDROX/AL HYDROX/SIMETH SUSP 30 ML UDCUP PO PRN (04:37)
[2018-03-25] MEDS ORDERED: MAGNESIUM HYDROXIDE SUSP 30 ML UDCUP PO PRN (04:37)
[2018-03-25] MEDS ORDERED: ONDANSETRON HCL INJ/PF 4 MG/2 ML SDV IV PRN (04:37)
[2018-03-25] MEDS: 1/2 NORMAL SALINE 1,000 ML IV PRN ×2 (05:30→11:20)
[2018-03-25] MEDS ORDERED: HEPARIN SOD (PORCINE) 5,000 UNIT/ML 1 ML SYRINGE SUBCUT SCH (06:00)
[2018-03-25 06:51] LABS: ABSOLUTE EOSINOPHILS # (AUTO) 0.1 10^3/uL (0.0-0.6); ABSOLUTE MONOCYTES (AUTO) 0.7 10^3/uL (0.1-1.4); ABSOLUTE NEUT (AUTO) 7.4 10^3/uL (1.7-8.2); BASOPHILS % (AUTO) 0.4 % (0-2); EOSINOPHILS % (AUTO) 0.7 % (0-6); HEMATOCRIT 29.7 % (36.0-47.0); HEMOGLOBIN 10.2 g/dL (12.0-15.5); LYMPHOCYTES % (AUTO) 10.5 % (13-45); MEAN CORPUSCULAR HEMOGLOBIN 29.7 pg (27.0-33.4); MEAN CORPUSCULAR HGB CONC 34.2 g/dL (32.0-36.0); MEAN CORPUSCULAR VOLUME 87 fl (80-97); MONOCYTES % (AUTO) 7.8 % (3-13); PLATELET COUNT 129 10^3/uL (150-450); RED BLOOD COUNT 3.43 10^6/uL (3.72-5.28); RED CELL DISTRIBUTION WIDTH 14.2 % (11.5-14.0); SEGMENTED NEUTROPHILS % (AUTO) 80.6 % (42-78); TOTAL CELLS COUNTED % (AUTO) 100 %; WHITE BLOOD COUNT 9.2 10^3/uL (4.0-10.5)
[2018-03-25 07:14] LABS: ANION GAP 5 (5-19); BLOOD UREA NITROGEN 19 mg/dL (7-20); CALCIUM 8.2 mg/dL (8.4-10.2); CARBON DIOXIDE 28 mmol/L (22-30); CHLORIDE 106 mmol/L (98-107); GLUCOSE 185 mg/dL (75-110); POTASSIUM 4.6 mmol/L (3.6-5.0)
[2018-03-25] MEDS ORDERED: GABAPENTIN 300 MG CAPSULE PO SCH ×2 (10:00→14:00)
[2018-03-25] MEDS ORDERED: METFORMIN HCL 500 MG TABLET PO SCH (10:00)
[2018-03-25] MEDS ORDERED: BENAZEPRIL HCL 5 MG TABLET PO SCH (10:00)
[2018-03-25] MEDS ORDERED: SERTRALINE HCL 50 MG TABLET PO SCH (10:00)
[2018-03-25] MEDS ORDERED: INSULIN GLARGINE,HUM.REC.ANLOG 300 UNIT/3 ML INSULN.PEN SUBCUT SCH (10:00)
[2018-03-25] MEDS ORDERED: FAMOTIDINE 20 MG TABLET PO SCH (10:00)
[2018-03-25] MEDS ORDERED: DOCUSATE SODIUM 100 MG CAPSULE PO SCH (10:00)
[2018-03-25] MEDS ORDERED: POLYETHYLENE GLYCOL 3350 POWDER 17 GM/1 PACKET PO SCH (10:00)
[2018-03-25] MEDS ORDERED: MULTIVITAMIN TABLET PO SCH (10:00)
[2018-03-25] MEDS ORDERED: ASPIRIN 81 MG TABLET, CHEWABLE PO SCH (10:00)
[2018-03-25] MEDS ORDERED: GLIPIZIDE XL 5 MG TAB.ER.24 PO SCH (10:00)
[2018-03-25] MEDS ORDERED: INSULIN GLARGINE,HUM.REC.ANLOG 1,000 UNIT/10 ML UNIT SUBCUT SCH (10:00)
[2018-03-25] MEDS: METOPROLOL TARTRATE 25 MG TABLET PO SCH (10:05)
[2018-03-25 12:42] VITALS: BP 142/47
--- NOTE | 2018-03-25 13:06 | PDOC DISCHARGE SUMMARY ---
General - Admit/Disc Date/PCP Admission Date/Primary Care Provider: 03/24/18 17:26 MALATHI DAVILA PA-C Discharge Date: 03/25/18 - Discharge Diagnosis (3) CAD (coronary artery disease) Is this a current diagnosis for this admission?: Yes - Additional Information Resuscitation Status: Full Code Discharge Diet: As Tolerated, Cardiac, Diabetic Discharge Activity: Activity As Tolerated Home Medications: Benazepril HCl [Lotensin 5 mg Tablet] 10 mg PO DAILY 04/10/17 Metoprolol Tartrate [Lopressor 25 mg Tablet] 25 mg PO Q12 04/10/17 Multivitamin [Tab-A-Guera (Multiple Vitamin) Tablet] 1 tab PO DAILY 04/10/17 Sertraline HCl [Zoloft] 150 mg PO QHS 04/10/17 Polyethylene Glycol 3350 [Miralax Powder 17 gm/Packet] 17 gm PO DAILY powd.pack 04/12/17 Aspirin 81 mg PO DAILY 10/26/17 Atorvastatin Calcium 40 mg PO DAILY 10/26/17 Docusate Sodium 100 mg PO DAILY 10/26/17 Gabapentin 300 mg PO TID 10/26/17 Insulin Glargine,Hum.rec.anlog [Lantus Solostar] 20 unit SUBCUT QHS 10/26/17 Metformin HCl 1,000 mg PO BID 10/26/17 Acetaminophen [Tylenol 325 mg Tablet] 325 mg PO PRN PRN 03/25/18 Cyanocobalamin (Vitamin B-12) [B-12] 1,000 mcg PO DAILY 03/25/18 Sitagliptin Phosphate [Januvia] 100 mg PO DAILY 03/25/18 History of Present Illness History of Present Illness: IRMA CASE is a 72 year old female who presented to the emergency room with a 1-day history of generalized weakness. She admits a sudden onset generalized weakness associated with a subjective fever, chills with severely intense rigors, nausea, nasal congestion alternating with rhinorrhea, occasional nonproductive cough, intermittent mild to moderate generalized headache and urinary frequency since just after her breakfast this morning. She admits to having similar episodes in the past when she has had a "cold" and she has not identified any aggravating or ameliorating factors for her current symptoms. She rates her weakness at the present time as moderate and admits that it is the primary reason why she came to the emergency room. In the emergency room she was found to have a mildly elevated white blood count and a elevated temperature of 100.7 F. Remainder of her evaluation was unremarkable but due to her progressive symptoms and her multiple comorbidities (heart disease and diabetes mellitus) it was felt to be appropriate to admit the patient under observation status for further evaluation and treatment. Hospital Course Hospital Course: Patient was admitted for observation. She was treated conservatively and symptomatically. She was not given antibiotics. Her fever defervesced. She feels a lot better. Her urine culture is positive for gram-negative rods and mixed normal pablo. She is asymptomatic and has no urinary symptoms. Patient is much better today. She is asymptomatic. Fever subsided. She is tolerating diet. She is ambulated without any difficulty. She wants to go home. Okay for discharge. Physical Exam Vital Signs: Temp Pulse Resp BP Pulse Ox 99.2 F 17 142/47 H 94 03/25/18 11:29 03/25/18 12:01 03/25/18 12:01 03/25/18 12:01 Intake & Output 03/24/18 03/25/18 03/26/18 06:59 06:59 06:59 Intake Total 1999 974 Balance 1999 974 Weight 150 lb 12.739 oz General appearance: PRESENT: no acute distress, cooperative Head exam: PRESENT: atraumatic, normocephalic Mouth exam: PRESENT: moist, neck supple Neck exam: ABSENT: meningismus, tenderness Respiratory exam: PRESENT: clear to auscultation [place]. ABSENT: accessory muscle use Cardiovascular exam: PRESENT: RRR. ABSENT: systolic murmur Pulses: PRESENT: normal radial pulses GI/Abdominal exam: PRESENT: normal bowel sounds, soft. ABSENT: mass, tenderness Rectal exam: PRESENT: deferred Extremities exam: ABSENT: clubbing, pedal edema Musculoskeletal exam: PRESENT: ambulatory. ABSENT: deformity Neurological exam: PRESENT: alert, awake, oriented to person, oriented to place, oriented to time, oriented to situation Psychiatric exam: PRESENT: appropriate affect. ABSENT: agitated, anxious, flat affect Results Laboratory Results: 03/25/18 05:53 03/25/18 05:53 03/24/18 03/24/18 03/24/18 15:24 15:56 15:56 WBC 11.0 H RBC 4.02 Hgb 11.7 L Hct 35.1 L MCV 87 MCH 29.2 MCHC 33.5 RDW 14.0 Plt Count 139 L Seg Neutrophils % 89.0 H Lymphocytes % 5.1 L Monocytes % 5.3 Eosinophils % 0.5 Basophils % 0.1 Absolute Neutrophils 9.8 H Absolute Lymphocytes 0.6 Absolute Monocytes 0.6 Absolute Eosinophils 0.1 Absolute Basophils 0.0 Sodium 135.6 L Potassium 4.6 Chloride 101 Carbon Dioxide 28 Anion Gap 7 BUN 19 Creatinine 0.53 Est GFR ( Amer) > 60 Est GFR (Non-Af Amer) > 60 Glucose 241 H Lactic Acid Calcium 9.3 Magnesium Total Bilirubin 0.5 AST 25 ALT 30 Alkaline Phosphatase 63 Total Protein 6.3 Albumin 3.7 Urine Color YELLOW Urine Appearance CLEAR Urine pH 8.0 Ur Specific [place] 1.011 Urine Protein 30 H Urine Glucose (UA) NEGATIVE Urine Ketones TRACE H Urine Blood NEGATIVE Urine Nitrite NEGATIVE Ur Leukocyte Esterase TRACE H Urine WBC (Auto) 8 Urine RBC (Auto) 4 03/24/18 03/25/18 03/25/18 15:56 05:53 05:53 WBC 9.2 RBC 3.43 L Hgb 10.2 L Hct 29.7 L MCV 87 MCH 29.7 MCHC 34.2 RDW 14.2 H Plt Count 129 L Seg Neutrophils % 80.6 H Lymphocytes % 10.5 L Monocytes % 7.8 Eosinophils % 0.7 Basophils % 0.4 Absolute Neutrophils 7.4 Absolute Lymphocytes 1.0 Absolute Monocytes 0.7 Absolute Eosinophils 0.1 Absolute Basophils 0.0 Sodium 139.0 Potassium 4.6 Chloride 106 Carbon Dioxide 28 Anion Gap 5 BUN 19 Creatinine 0.55 Est GFR ( Amer) > 60 Est GFR (Non-Af Amer) > 60 Glucose 185 H Lactic Acid 0.9 Calcium 8.2 L Magnesium 1.5 L Total Bilirubin AST ALT Alkaline Phosphatase Total Protein Albumin Urine Color Urine Appearance Urine pH Ur Specific [place] Urine Protein Urine Glucose (UA) Urine Ketones Urine Blood Urine Nitrite Ur Leukocyte Esterase Urine WBC (Auto) Urine RBC (Auto) Impressions: Chest X-Ray 03/24/18 15:08 IMPRESSION: NO ACUTE RADIOGRAPHIC FINDING IN THE CHEST. Qualifiers - * PATIENT BEING DISCHARGED WITH ANY OF THE FOLLOWING DIAGNOSIS: No
[2018-03-25] MEDS ORDERED: ATORVASTATIN CALCIUM 40 MG TABLET PO SCH (22:00)
== END 2018-03-25 14:04 | disposition home or self-care (01) ==
LOC: ER 14:42 → EH 17:26 → 2N 03-25 12:55
PROVIDERS: ADMIT Family Medicine; ATTEND Family Medicine
DX: R53.1 Weakness (principal); J06.9 Acute upper respiratory infection, unspecified; R35.0 Frequency of micturition; I25.10 Atherosclerotic heart disease of native coronary artery without angina pectoris; E11.42 Type 2 diabetes mellitus with diabetic polyneuropathy; R11.0 Nausea; R51 Headache; E78.5 Hyperlipidemia, unspecified; R50.9 Fever, unspecified; R82.79 Other abnormal findings on microbiological examination of urine; Z79.899 Other long term (current) drug therapy; Z79.4 Long term (current) use of insulin; Z79.82 Long term (current) use of aspirin; Z95.5 Presence of coronary angioplasty implant and graft; Z95.0 Presence of cardiac pacemaker; Z98.51 Tubal ligation status; Z82.49 Family history of ischemic heart disease and other diseases of the circulatory system
CPT/HCPCS: 94640; 99285; 96361; 96374; 96375; 36415 ×2; 87040; 87086; 82962 ×2; 83605; 83735; 85025 ×2; 87077; 87088; 80048; 80053; 81001; 87186; 87804; 71045; G0378 ×2; A9270 ×10; J3490; J1885; J2765; J7030; J1815; J7620

== ENCOUNTER 2018-09-03 11:05 | Emergency (ER) | payer MEDICARE ==
--- NOTE | 2018-09-03 12:32 | ER Document Report ---
Addendum entered and electronically signed by HAYDEE IVORY FNP-C 09/03/18 13:56: Discharge - Discharge Clinical Impression: Right knee pain, Suprapatellar effusion of knee Condition: Stable Disposition: HOME, SELF-CARE Instructions: Knee Effusion ([facility]), Knee Exercise Program ([facility]), Knee Immobilizing Splint ([facility]), Sprained Knee ([facility]) Additional Instructions: Return immediately for any new or worsening symptoms. Follow up with primary care provider, call tomorrow to make followup appointment.You do not have evidence of a fracture on today's xrays. Your pain is likely to do soft tissue swelling and inflammation. This can last up to 6 weeks before completely resolving. You should continue to apply ice to the area regularly, keep the affected area elevated, and take ibuprofen 600mg every 6 hours as needed for pain. Please return if you have worsening pain, weakness, numbness, notice increasing redness or swelling to the area, develop a fever, or have any other symptoms that are concerning to you. Prescriptions: Acetaminophen [Tylenol 325 mg Tablet] 650 mg PO Q4HP PRN #30 tablet PRN Reason: Referrals: MALATHI DAVILA PA-C [Primary Care Provider] - Follow up as needed ALEXUS MCCALL MD [ACTIVE STAFF] - Follow up in 3-5 days Original Note: HPI - HPI Time Seen by Provider: 09/03/18 12:30 Pain Level: 4 Notes: 73 female presents to the ED for evaluation of right knee after twisting it x1 d ay ago. Pain worse with time, no mmkz-fmb-vhmecsb medications have been tried, no numbness or tingling down bilateral lower extremities. Has not been evaluated by PCP. Denies any other area of injury. Denies fevers, chills, chest pain,palpitations, shortness of breath, dyspnea, nausea, vomiting, diarrhea, abdominal pain, hematuria,blurred vision, double vision, loss of vision, speech changes, LH, dizziness, syncope, headaches, wheezing, ST, URI, neck pain, weakness, bowel or bladder dysfunction, saddle anesthesia, numbness or tingling in bilateral upper or lower extremities equally, muscle paralysis, weakness in bilateral upper or lower extremities equally or rash. - REPRODUCTIVE Reproductive: DENIES: : Past Medical History - General Information source: Patient - Social History Smoking Status: Unknown if Ever Smoked Frequency of alcohol use: None Drug Abuse: None Family History: CAD, DM, Hypertension, Malignancy - father Patient has suicidal ideation: No Patient has homicidal ideation: No - Past Medical History Cardiac Medical History: Reports: Hx Congestive Heart Failure, Hx Coronary Artery Disease - HIGH CHOL, Hx Heart Attack - NSTEMI, Hx Hypercholesterolemia, Hx Hypertension Pulmonary Medical History: Denies: Hx Asthma, Hx Bronchitis, Hx COPD, Hx Pneumonia Neurological Medical History: Denies: Hx Cerebrovascular Accident, Hx Seizures Endocrine Medical History: Reports: Hx Diabetes Mellitus Type 1, Hx Diabetes Mellitus Type 2. Denies: Hx Hyperthyroidism, Hx Hypothyroidism Renal/ Medical History: Denies: Hx Peritoneal Dialysis GI Medical History: Reports: Hx Gastroesophageal Reflux Disease. Denies: Hx Cirrhosis, Hx Hepatitis Musculoskeletal Medical History: Reports Hx Arthritis, Denies Hx Gout Skin Medical History: Denies Hx Eczema, Denies Hx Psoriasis Psychiatric Medical History: Reports: Hx Depression Infectious Medical History: Denies: Hx Hepatitis Past Surgical History: Reports: Hx Cardiac Catheterization - stent x1, Hx Cardiac Surgery - Pacemaker, Hx Section - x3, Hx Coronary Stent, Hx Open Heart Surgery, Hx Pacemaker, Hx Tubal Ligation. Denies: Hx Hysterectomy - Immunizations Hx Diphtheria, Pertussis, Tetanus Vaccination: Yes - 2009 Hx Pneumococcal Vaccination: 02/26/11 Vertical Provider Document - CONSTITUTIONAL Agree With Documented VS: Yes Notes: PHYSICAL EXAMINATION: GENERAL: Well-appearing, well-nourished and in no acute distress. HEAD: Atraumatic, normocephalic. EYES: Pupils equal round and reactive to light, extraocular movements intact, conjunctiva are normal. ENT: Nares patent, oropharynx clear without exudates. Moist mucous membranes. NECK: Normal range of motion, supple without lymphadenopathy LUNGS: Breath sounds clear to auscultation bilaterally and equal. No wheezes rales or rhonchi. HEART: Regular rate and rhythm without murmurs ABDOMEN: Soft, nontender, nondistended abdomen. No guarding, no rebound. No masses appreciated. Female : deferred Musculoskeletal: Normal range of motion, no pitting or edema. No cyanosis. right knee pain with palpation to lateral aspect of knee with noted swelling. negative dolly's sign. anterior and posterior drawer test negative. noted pain with lateral movement. Dtr + 2 in BLE. Full motor and sensory function to BLE equally. No open wounds. No induration or drainage. Strength 5 out of 5 bilaterally equally. Ankle examination normal. Squeeze test negative. Hip examination normal. Pulses + 2 bilaterally and equally.negative squeeze bilaterally and equally. NEUROLOGICAL: Cranial nerves grossly intact. Normal speech, normal gait. Normal sensory, motor exams PSYCH: Normal mood, normal affect. SKIN: Warm, Dry, normal turgor, no rashes or lesions noted. - INFECTION CONTROL TRAVEL OUTSIDE OF THE [place] IN LAST 30 DAYS: No Course - Re-evaluation Re-evalutation: 73 yr old female presents today with complaints of right knee pain after falling yesterday, vital signs stable, afebrile no distress. X-ray of right knee negative for acute fracture dislocation, does show suprapatellar effusion. Discussed with patient that she does need to follow rice therapy, will place a Navneet bandage and place her in a right knee immobilizer. Orthopedic referral given. Advised to alternate between Tylenol and low-dose ibuprofen at 400 mg as needed for pain. Apply heat 20 minutes on 20 minutes off several times a day. After performing a Medical Screening Examination, I estimate there is LOW risk for OPEN FRACTURE, COMPARTMENT SYNDROME, TENDON RUPTURE, ACUTE NEUROVASCULAR INJURY, or RETAINED FOREIGN BODY, thus I consider the discharge disposition reasonable. Also, there is no evidence or peritonitis, sepsis, or toxicity. I have reevaluated this patient multiple times and no significant life threatening changes are noted. The patient and I have discussed the diagnosis and risks, and we agree with discharging home with close follow-up with the understanding that symptoms and presentations can change. We also discussed returning to the Emergency Department immediately if new or worsening symptoms occur. We have discussed the symptoms which are most concerning (e.g., changing or worsening pain, fever, numbness, weakness, cool or painful digits) that necessitate immediate return. - Vital Signs Vital signs: Temp Pulse Resp BP Pulse Ox 98.2 F 86 16 132/56 H 95 09/03/18 11:14 09/03/18 11:14 09/03/18 11:14 09/03/18 11:14 09/03/18 11:14 Discharge - Discharge Clinical Impression: Right knee pain, Suprapatellar effusion of knee Condition: Stable Disposition: HOME, SELF-CARE Instructions: Knee Effusion ([facility]), Knee Exercise Program ([facility]), Knee Immobilizing Splint ([facility]), Sprained Knee ([facility]) Additional Instructions: Return immediately for any new or worsening symptoms. Follow up with primary care provider, call tomorrow to make followup appointment.You do not have evidence of a fracture on today's xrays. Your pain is likely to do soft tissue swelling and inflammation. This can last up to 6 weeks before completely resolving. You should continue to apply ice to the area regularly, keep the affected area elevated, and take ibuprofen 600mg every 6 hours as needed for pain. Please return if you have worsening pain, weakness, numbness, notice increasing redness or swelling to the area, develop a fever, or have any other symptoms that are concerning to you. Prescriptions: Acetaminophen [Tylenol 325 mg Tablet] 650 mg PO Q4HP PRN #30 tablet PRN Reason: Referrals: MALATHI DAVILA PA-C [Primary Care Provider] - Follow up as needed ALEXUS MCCALL MD [ACTIVE STAFF] - Follow up in 3-5 days
--- NOTE | 2018-09-03 13:10 | RADIOLOGY REPORT (SQ) ---
EXAM DESCRIPTION: KNEE RIGHT 2 VIEWS COMPLETED DATE/TIME: 09/03/2018 12:45 pm REASON FOR STUDY: fall COMPARISON: Right knee films 07/21/2017, 02/19/2012 NUMBER OF VIEWS: Four views. TECHNIQUE: AP, lateral, and both oblique radiographic images acquired of the right knee. LIMITATIONS: None. FINDINGS: MINERALIZATION: Osteopenic BONES: No acute fracture or dislocation. No worrisome bone lesions. JOINT: Small suprapatellar knee joint effusion, diffuse chondrocalcinosis. SOFT TISSUES: Arterial vascular calcifications along the [place] popliteal artery. Multiple surgical clips post vascular surgery in the medial knee soft tissues OTHER: No other significant finding. IMPRESSION: No acute fracture Suprapatellar knee joint effusion TECHNICAL DOCUMENTATION: JOB ID: [id number] [employer]- All Rights Reserved Reading location - IP/workstation name: [email or web address]
[2018-09-03 14:04] VITALS: BP 161/76
== END 2018-09-03 14:02 | disposition home or self-care (01) ==
LOC: ER 11:05
DX: M25.561 Pain in right knee (principal); M25.461 Effusion, right knee; R20.0 Anesthesia of skin; I50.9 Heart failure, unspecified; I25.10 Atherosclerotic heart disease of native coronary artery without angina pectoris; I11.0 Hypertensive heart disease with heart failure; E11.9 Type 2 diabetes mellitus without complications
CPT/HCPCS: 99283; 73560; L1830

== ENCOUNTER → 2019-02-12 | Outpatient (CLI) | payer MEDICARE ==
--- NOTE | 2019-02-13 17:35 | WOMENS IMAGING REPORT ---
EXAM DESCRIPTION: 3D SCREENING MAMMO BILAT COMPLETED DATE/TIME: 02/12/2019 2:34 pm REASON FOR STUDY: Z12.31 SCREENING MAMMO Z12.31 ENCNTR SCREEN MAMMOGRAM FOR MALIGNANT NEOPLASM OF B RE COMPARISON: Multiple since 2007 EXAM PARAMETERS: Views: Standard craniocaudal and mediolateral oblique views of each breast recorded using digital acquisition and breast tomosynthesis. Read with the assistance of CAD. .[facility] - R2 Foil Cutter Version 9.2 LIMITATIONS: None. FINDINGS: No suspicious masses, suspicious calcifications or architectural distortion. No areas of c oncern. IMPRESSION: NEGATIVE MAMMOGRAM. BIRADS 1. BREAST DENSITY: b. There are scattered areas of fibroglandular density. BIRAD: ASSESSMENT: 1 NEGATIVE RECOMMENDATION: ROUTINE SCREENING Please continue yearly bilateral screening mammography/tomosynthesis in January 2020. COMMENT: The patient has been notified of the results by letter per [facility] requirements. Additional no tification policies are in place for contacting patient with suspicious or incomplete findings. Quality ID #[id number]: The [employer] recommends an annual screening mammogram for women aged 40 years or over. This facility utilizes a reminder system to ensure that all patients receive reminder letters, and/or direct phone calls for appointments. This includes reminders for routine scr eening mammograms, diagnostic mammograms, or other Breast Imaging Interventions when appropriate. Th is patient will be placed in the appropriate reminder system. TECHNICAL DOCUMENTATION: FINDING NUMBER: (1) ASSESSMENT: (1) JOB ID: [id number] [employer]- All Rights Reserved Reading location - IP/workstation name: [email or web address]
== END ==
LOC: WI 13:40
PROVIDERS: ATTEND Physician Assistant
DX: Z12.31 Encounter for screening mammogram for malignant neoplasm of breast (principal)
CPT/HCPCS: 77063; 77067

== ENCOUNTER 2019-03-01 10:32 | Emergency (ER) | payer MEDICARE ==
--- NOTE | 2019-03-01 11:11 | ER Document Report ---
ED Medical Screen (RME) - General Chief Complaint: Cough Stated Complaint: COLD/EYE DISCHARGE/FEVER/WEAKNESS Time Seen by Provider: 03/01/19 11:04 Primary Care Provider: MALATHI DAVILA PA-C [Primary Care Provider] - Follow up as needed Notes: Patient is a 73-year-old female who presents emergency department with a chief complaint of bilateral eye discharge that she noticed this morning. She also has had a cough for the past 3 days. She also states that she feels short of breath. Patient has history of an UT with stent placement, open heart surgery, diabetes, pneumonia, hypertension, and CHF. Patient also noticed some puffiness around her eyes today. Exam: S1, S2. Lung sounds clear to auscultation bilaterally. I have greeted and performed a rapid initial assessment of this patient. A comprehensive ED assessment and evaluation of the patient, analysis of test results and completion of medical decision making process will be conducted by an additional ED providers. TRAVEL OUTSIDE OF THE [place] IN LAST 30 DAYS: No - Related Data Allergies/Adverse Reactions: No Known Allergies Allergy (Verified 03/01/19 10:50) Home Medications: htn dm open heart surgery stent neuropathy bilateral lower ext. cataract/operated Past Medical History - Social History Chew tobacco use (# tins/day): No Frequency of alcohol use: None Drug Abuse: None - Past Medical History Cardiac Medical History: Reports: Hx Congestive Heart Failure, Hx Coronary Artery Disease - HIGH CHOL, Hx Heart Attack - NSTEMI, Hx Hypercholesterolemia, Hx Hypertension Pulmonary Medical History: Denies: Hx Asthma, Hx Bronchitis, Hx COPD, Hx Pneumonia Neurological Medical History: Denies: Hx Cerebrovascular Accident, Hx Seizures Endocrine Medical History: Reports: Hx Diabetes Mellitus Type 1, Hx Diabetes Mellitus Type 2. Denies: Hx Hyperthyroidism, Hx Hypothyroidism Renal/ Medical History: Denies: Hx Peritoneal Dialysis GI Medical History: Reports: Hx Gastroesophageal Reflux Disease. Denies: Hx Cirrhosis, Hx Hepatitis Musculoskeltal Medical History: Reports Hx Arthritis, Denies Hx Gout Skin Medical History: Denies Hx Eczema, Denies Hx Psoriasis Psychiatric Medical History: Reports: Hx Depression Infectious Medical History: Denies: Hx Hepatitis Past Surgical History: Reports: Hx Cardiac Catheterization - stent x1, Hx Car diac Surgery - Pacemaker, Hx Section - x3, Hx Coronary Stent, Hx Open Heart Surgery, Hx Pacemaker, Hx Tubal Ligation. Denies: Hx Hysterectomy - Immunizations Hx Diphtheria, Pertussis, Tetanus Vaccination: Yes - 2009 Physical Exam - Vital signs Vitals: Temp Pulse Resp BP Pulse Ox 97.8 F 100 16 175/83 H 97 03/01/19 10:36 03/01/19 10:36 03/01/19 10:36 03/01/19 10:36 03/01/19 10:36 Course - Vital Signs Vital signs: Temp Pulse Resp BP Pulse Ox 97.8 F 100 16 175/83 H 97 03/01/19 10:36 03/01/19 10:36 03/01/19 10:36 03/01/19 10:36 03/01/19 10:36 Doctor's Discharge - Discharge Referrals: MALATHI DAVILA PA-C [Primary Care Provider] - Follow up as needed
[2019-03-01 11:44] LABS: ABSOLUTE EOSINOPHILS # (AUTO) 0.1 10^3/uL (0.0-0.6); ABSOLUTE LYMPHOCYTES (AUTO) 1.3 10^3/uL (0.5-4.7); ABSOLUTE MONOCYTES (AUTO) 0.5 10^3/uL (0.1-1.4); ABSOLUTE NEUT (AUTO) 4.7 10^3/uL (1.7-8.2); BASOPHILS % (AUTO) 0.7 % (0-2); HEMATOCRIT 35.4 % (36.0-47.0); HEMOGLOBIN 11.9 g/dL (12.0-15.5); LYMPHOCYTES % (AUTO) 19.4 % (13-45); MEAN CORPUSCULAR HGB CONC 33.5 g/dL (32.0-36.0); MEAN CORPUSCULAR VOLUME 86 fl (80-97); MONOCYTES % (AUTO) 7.8 % (3-13); PLATELET COUNT 167 10^3/uL (150-450); RED CELL DISTRIBUTION WIDTH 14.7 % (11.5-14.0); SEGMENTED NEUTROPHILS % (AUTO) 70.1 % (42-78); TOTAL CELLS COUNTED % (AUTO) 100 %; WHITE BLOOD COUNT 6.7 10^3/uL (4.0-10.5)
--- NOTE | 2019-03-01 11:51 | RADIOLOGY REPORT (SQ) ---
EXAM DESCRIPTION: CHEST SINGLE VIEW COMPLETED DATE/TIME: 03/01/2019 11:42 am REASON FOR STUDY: cough; shortness of breath COMPARISON: Chest films 03/24/2018, 11/25/2016 EXAM PARAMETERS: NUMBER OF VIEWS: One view. TECHNIQUE: Single frontal radiographic view of the chest acquired. RADIATION DOSE: NA LIMITATIONS: None. FINDINGS: LUNGS AND PLEURA: No opacities, masses or pneumothorax. No pleural effusion. MEDIASTINUM AND HILAR STRUCTURES: No masses. Contour normal. HEART AND VASCULAR STRUCTURES: No cardiomegaly. Old sternotomy and CABG vascular markers BONES: No acute findings. HARDWARE: Left-sided dual lead pacemaker OTHER: No other significant finding. IMPRESSION: NO ACUTE RADIOGRAPHIC FINDING IN THE CHEST. TECHNICAL DOCUMENTATION: JOB ID: [id number] [employer]- All Rights Reserved Reading location - IP/workstation name: [email or web address]
[2019-03-01 12:00] LABS: ALBUMIN 3.8 g/dL (3.5-5.0); ALKALINE PHOSPHATASE 63 U/L (38-126); ANION GAP 7 (5-19); ASPARTATE AMINO TRANSFERASE 25 U/L (14-36); BILIRUBIN,DIRECT 0.3 mg/dL (0.0-0.4); BILIRUBIN,TOTAL 0.4 mg/dL (0.2-1.3); BLOOD UREA NITROGEN 15 mg/dL (7-20); CALCIUM 9.3 mg/dL (8.4-10.2); CARBON DIOXIDE 30 mmol/L (22-30); CHLORIDE 103 mmol/L (98-107); GLUCOSE 138 mg/dL (75-110); POTASSIUM 4.4 mmol/L (3.6-5.0); TOTAL PROTEIN 7.2 g/dL (6.3-8.2)
[2019-03-01 15:50] VITALS: BP 162/91
--- NOTE | 2019-03-01 20:43 | ER Document Report ---
Entered by TRISTIN HOBBS SCRIBE 03/01/19 1551 Acting as scribe for:MYLENE SEYMOUR DO ED General - General Chief Complaint: Cough Stated Complaint: COLD/EYE DISCHARGE/FEVER/WEAKNESS Time Seen by Provider: 03/01/19 11:04 Primary Care Provider: MALATHI DAVILA PA-C [Primary Care Provider] - Follow up in 3-5 days Mode of Arrival: Ambulatory Information source: Patient Notes: This 73-year-old female patient presents to the emergency department today with complaints of a cough, nasal congestion, and eye discharge for the last 2 days. Patient states "I think I just have a cold". Patient states she has not had any shortness of breath or fevers. Patient states she has been taking dlao-zvh-rxwieje cold and flu medications with some relief. TRAVEL OUTSIDE OF THE [place] IN LAST 30 DAYS: No - Related Data Allergies/Adverse Reactions: No Known Allergies Allergy (Verified 03/01/19 10:50) Home Medications: htn dm open heart surgery stent neuropathy bilateral lower ext. cataract/operated Past Medical History - General Information source: Patient - Social History Smoking Status: Never Smoker Cigarette use (# per day): No Chew tobacco use (# tins/day): No Frequency of alcohol use: None Drug Abuse: None Lives with: Family Family History: Reviewed & Not Pertinent, CAD, DM, Hypertension, Malignancy Patient has suicidal ideation: No Patient has homicidal ideation: No - Past Medical History Cardiac Medical History: Reports: Hx Congestive Heart Failure, Hx Coronary Artery Disease - HIGH CHOL, Hx Heart Attack - NSTEMI, Hx Hypercholesterolemia, Hx Hypertension Endocrine Medical History: Reports: Hx Diabetes Mellitus Type 1, Hx Diabetes Mellitus Type 2 GI Medical History: Reports: Hx Gastroesophageal Reflux Disease Musculoskeletal Medical History: Reports Hx Arthritis Psychiatric Medical History: Reports: Hx Depression Past Surgical History: Reports: Hx Cardiac Catheterization - stent x1, Hx Cardiac Surgery - Pacemaker, Hx Section - x3, Hx Coronary Stent, Hx Open Heart Surgery, Hx Pacemaker, Hx Tubal Ligation. Denies: Hx Hysterectomy - Immunizations Hx Diphtheria, Pertussis, Tetanus Vaccination: Yes - 2009 Hx Pneumococcal Vaccination: 02/26/11 Review of Systems - Review of Systems Constitutional: denies: Fever EENT: See HPI, Eye discharge, Nose discharge Cardiovascular: No symptoms reported Respiratory: See HPI, Cough. denies: Short of breath Gastrointestinal: No symptoms reported Genitourinary: No symptoms reported Female Genitourinary: No symptoms reported Musculoskeletal: No symptoms reported Skin: No symptoms reported Hematologic/Lymphatic: No symptoms reported Neurological/Psychological: No symptoms reported -: Yes All other systems reviewed and negative Physical Exam - Vital signs Vitals: Temp Pulse Resp BP Pulse Ox 97.8 F 100 16 175/83 H 97 03/01/19 10:36 03/01/19 10:36 03/01/19 10:36 03/01/19 10:36 03/01/19 10:36 Interpretation: Normal - General General appearance: Appears well, Alert - HEENT Head: Normocephalic, Atraumatic Eyes: Normal Pupils: PERRL Nasal: Clear rhinorrhea - Respiratory Respiratory status: No respiratory distress Chest status: Nontender Breath sounds: Normal Chest palpation: Normal - Cardiovascular Rhythm: Regular Heart sounds: Normal auscultation Murmur: No - Abdominal Inspection: Normal Distension: No distension Bowel sounds: Normal Tenderness: Nontender Organomegaly: No organomegaly - Back Back: Normal, Nontender - Extremities General upper extremity: Normal inspection, Nontender, Normal color, Normal ROM, Normal temperature General lower extremity: Normal inspection, Nontender, Normal color, Normal ROM, Normal temperature, Normal weight bearing. No: Lauro's sign - Neurological Neuro grossly intact: Yes Cognition: Normal Orientation: AAOx4 Júnior Coma Scale Eye Opening: Spontaneous Jún[place] Coma Scale Verbal: Oriented [place] Coma Scale Motor: Obeys Commands Júnior Coma Scale Total: 15 Speech: Normal Motor strength normal: LUE, RUE, LLE, RLE Sensory: Normal - Psychological Associated symptoms: Normal affect, Normal mood - Skin Skin Temperature: Warm Skin Moisture: Dry Skin Color: Normal Course - Re-evaluation Re-evalutation: 03/01/19 Patient with cough and nasal congestion for 2 days. No difficulty breathing or chest pain. Blood work benign. Labs within normal limits. No evidence for pn eumonia on chest x-ray. Patient will be discharged home and is to continue taking eaoc-bnc-ftfoygs medications as needed for viral syndrome. Return if fever, trouble breathing, or further concerns. Understands agrees with plan. Stable for discharge. - Vital Signs Vital signs: Temp Pulse Resp BP Pulse Ox 98.2 F 81 16 162/91 H 100 03/01/19 15:49 03/01/19 15:49 03/01/19 15:49 03/01/19 15:49 03/01/19 15:49 - Laboratory Result Diagrams: 03/01/19 11:30 03/01/19 11:30 Laboratory results interpreted by me: 03/01/19 03/01/19 11:30 11:30 Hgb 11.9 L Hct 35.4 L RDW 14.7 H Glucose 138 H - Diagnostic Test Radiology reviewed: Reports reviewed Discharge - Discharge Clinical Impression: Upper respiratory infection with cough and congestion Condition: Stable Disposition: HOME, SELF-CARE Instructions: Upper Respiratory Illness ([facility]) Referrals: MALATHI DAVILA PA-C [Primary Care Provider] - Follow up in 3-5 days I personally performed the services described in the documentation, reviewed and edited the documentation which was dictated to the scribe in my presence, and it accurately records my words and actions.
== END 2019-03-01 15:58 | disposition home or self-care (01) ==
LOC: ER 10:32
DX: J06.9 Acute upper respiratory infection, unspecified (principal); R05 Cough; R09.81 Nasal congestion; H57.9 Unspecified disorder of eye and adnexa; J34.89 Other specified disorders of nose and nasal sinuses; I10 Essential (primary) hypertension; I25.10 Atherosclerotic heart disease of native coronary artery without angina pectoris; E11.40 Type 2 diabetes mellitus with diabetic neuropathy, unspecified; Z95.5 Presence of coronary angioplasty implant and graft
CPT/HCPCS: 36415; 71045; 80053; 85025; 99283

== ENCOUNTER 2019-04-30 10:48 | Emergency (ER) | payer MEDICARE ==
[2019-04-30 11:37] VITALS: BP 140/105
--- NOTE | 2019-04-30 11:48 | ER Document Report ---
ED Medical Screen (RME) - General Chief Complaint: Cough Stated Complaint: COUGH Time Seen by Provider: 04/30/19 11:39 Primary Care Provider: MALATHI DAVILA PA-C [Primary Care Provider] - Follow up as needed Mode of Arrival: Ambulatory Information source: Patient Notes: 73-year-old female presented to ED for cough cold congestion runny nose. She is alert oriented respirations regular nonlabored clear lung sounds. She states she was in [place] on the when she developed a cold she went and saw Dr. pineda take the back diagnosed her with an upper respiratory infection. She states that now she is back up here. TRAVEL OUTSIDE OF THE [place] IN LAST 30 DAYS: No - HPI Onset: Just prior to arrival Onset/Duration: Gradual Quality of pain: Achy Severity: Moderate Pain Level: 4 Associated Symptoms: Body/muscle aches, Chest pain, Cough (nonproductive), Sinus pain/drainage, Sore throat Exacerbated by: Denies Relieved by: Denies Similar symptoms previously: Yes Recently seen / treated by doctor: Yes - Related Data Smoking: Non-smoker Frequency of alcohol use: None Drug Abuse: None Allergies/Adverse Reactions: No Known Allergies Allergy (Verified 04/30/19 11:41) Past Medical History - General Information source: Patient - Social History Cigarette use (# per day): No Frequency of alcohol use: None Drug Abuse: None Lives with: Family Family history: Reviewed & Not Pertinent - Past Medical History Cardiac Medical History: Reports: Hx Congestive Heart Failure, Hx Coronary Artery Disease - HIGH CHOL, Hx Heart Attack - NSTEMI, Hx Hypercholesterolemia, Hx Hypertension Pulmonary Medical History: Reports: None EENT Medical History: Reports: None Neurological Medical History: Reports: None Endocrine Medical History: Reports: Hx Diabetes Mellitus Type 2 Renal/ Medical History: Reports: None Malignancy Medical History: Reports: None GI Medical History: Reports: Hx Gastroesophageal Reflux Disease Musculoskeltal Medical History: Reports Hx Arthritis Skin Medical History: Reports None Psychiatric Medical History: Reports: Hx Depression Traumatic Medical History: Reports: None Infectious Medical History: Reports: None Past Surgical History: Reports: Hx Cardiac Catheterization - stent x1, Hx Cardiac Surgery - Pacemaker, Hx Section - x3, Hx Coronary Stent, Hx Open Heart Surgery, Hx Pacemaker, Hx Tubal Ligation - Immunizations Hx Diphtheria, Pertussis, Tetanus Vaccination: Yes - 2009 Review of Systems - Review of Systems Constitutional: No symptoms reported EENT: Nose congestion, Sinus pressure, Sinus discharge Cardiovascular: No symptoms reported Respiratory: Cough Gastrointestinal: No symptoms reported Genitourinary: No symptoms reported Female Genitourinary: No symptoms reported Musculoskeletal: No symptoms reported Skin: No symptoms reported Hematologic/Lymphatic: No symptoms reported Neurological/Psychological: No symptoms reported -: Yes All other systems reviewed and negative Physical Exam - Vital signs Vitals: Temp Pulse Resp BP Pulse Ox 98.2 F 90 16 140/105 H 97 04/30/19 11:36 04/30/19 11:36 04/30/19 11:36 04/30/19 11:36 04/30/19 11:36 Interpretation: Normal - General General appearance: Appears well, Alert - HEENT Head: Normocephalic, Atraumatic Eyes: Normal Pupils: PERRL Ears: Normal External canal: Normal Sinus: Normal Nasal: Purulent discharge, Swelling Mouth/Lips: Normal Mucous membranes: Normal Pharynx: Post nasal drainage Neck: Normal - Respiratory Respiratory status: No respiratory distress Chest status: Nontender Breath sounds: Nonproductive cough Chest palpation: Normal - Cardiovascular Rhythm: Regular Heart sounds: Normal auscultation Murmur: No - Abdominal Inspection: Normal Distension: No distension Bowel sounds: Normal Tenderness: Nontender Organomegaly: No organomegaly - Back Back: Normal, Nontender - Extremities General upper extremity: Normal inspection, Nontender, Normal color, Normal ROM, Normal temperature General lower extremity: Normal inspection, Nontender, Normal color, Normal ROM, Normal temperature, Normal weight bearing. No: Lauro's sign - Neurological Neuro grossly intact: Yes Cognition: Normal Orientation: AAOx4 Júnior Coma Scale Eye Opening: Spontaneous Júnior Coma Scale Verbal: Oriented Júnior Coma Scale Motor: Obeys Commands [place] Coma Scale Total: 15 Speech: Normal Motor strength normal: LUE, RUE, LLE, RLE Sensory: Normal - Psychological Associated symptoms: Normal affect, Normal mood - Skin Skin Temperature: Warm Skin Moisture: Dry Skin Color: Normal Course - Re-evaluation Re-evalutation: 04/30/19 20:46 After performing a Medical Screening Examination, I estimate there is LOW risk for ACUTE CORONARY SYNDROME, RESPIRATORY FAILURE, SEPSIS OR MENINGITIS, thus I consider the discharge disposition reasonable. I have reevaluated this patient multiple times and no significant life threatening changes are noted. The patient and I have discussed the diagnosis and risks, and we agree with discharging home with close follow-up. We also discussed returning to the Emergency Department immediately if new or worsening symptoms occur. We have discussed the symptoms which are most concerning (e.g., changing or worsening pain, trouble swallowing or breathing, neck stiffness, fever) that necessitate immediate return. - Vital Signs Vital signs: Temp Pulse Resp BP Pulse Ox 98.2 F 90 16 140/105 H 97 04/30/19 11:36 04/30/19 11:36 04/30/19 11:36 04/30/19 11:36 04/30/19 11:36 - Diagnostic Test Radiology reviewed: Image reviewed, Reports reviewed Doctor's Discharge - Discharge Clinical Impression: URI (upper respiratory infection) Qualifiers: URI type: unspecified viral URI Qualified Code(s): J06.9 - Acute upper respiratory infection, unspecified Condition: Stable Disposition: HOME, SELF-CARE Additional Instructions: UPPER RESPIRATORY ILLNESS: You have a viral infection of the respiratory passages -- a "cold." This common infection causes nasal congestion, drainage, and often sore throat and cough. It is highly contagious. The disease usually lasts about 10 to 14 days. There is no "cure" for the viral infection -- it must run its course. If there is a complication, such as bacterial infection in the nose, sinuses, middle ear, or bronchial tubes, antibiotics may be required. The antibiotics won't affect the virus. Drink plenty of fluids. A humidifier may help. An expectorant medication or decongestant may make you more comfortable. Use acetaminophen or ibuprofen for fever or aches. See the doctor if fever persists over two days, if there is any significant worsening of your symptoms, or if you simply fail to improve as expected. You have been recommended treatment with Flonase which is [id number] 1 spray each nostril twice a day. You could also use salt soda solution gargles. These will help to remove the drainage from the back your throat. Chloraseptic spray was [id number] that will also help with your sore throat. Salt and soda solution gargle 1 quart of water 1 tablespoon of salt 1 teaspoon of baking soda Mixed 3 ingredients together and boil for 1 minute Placed in a covered quart jar Use 1/2 ounce of cold solution to gargle 3 times a day USE OF ACETAMINOPHEN (Tylenol): Acetaminophen may be taken for pain relief or fever control. It's much safer than aspirin, offering a wider range of "safe" dosages. It is safe during . Some brand names are Tylenol, Panadol, Datril, Anacin 3, Tempra, and Liquiprin. Acetaminophen can be repeated every four hours. The following are maximum recommended dosages: >89 pounds or adults 650 mg to 900 mg Acetaminophen can be repeated every four hours. Maximum dose not to exceed 4000 mg a day. FOLLOW-UP CARE: If you have been referred to a physician for follow-up care, call the physicians office for an appointment as you were instructed or within the next two days. If you experience worsening or a significant change in your symptoms, notify the physician immediately or return to the Emergency Department at any time for re-evaluation. Forms: Elevated Blood Pressure Referrals: MALATHI DAVILA PA-C [Primary Care Provider] - Follow up as needed
--- NOTE | 2019-04-30 12:30 | RADIOLOGY REPORT (SQ) ---
EXAM DESCRIPTION: CHEST 2 VIEWS COMPLETED DATE/TIME: 04/30/2019 12:15 pm REASON FOR STUDY: cough cold congestion COMPARISON: None. EXAM PARAMETERS: NUMBER OF VIEWS: Two views. TECHNIQUE: PA and lateral views of the chest were obtained.. RADIATION DOSE: NA LIMITATIONS: none FINDINGS: LUNGS AND PLEURA: Low inspiratory lung volumes without a superimposed consolidation, pleur al effusion or pneumothorax. MEDIASTINUM AND HILAR STRUCTURES: No mediastinal or hilar contour abnormality. HEART AND VASCULAR STRUCTURES: The cardiac silhouette and pulmonary vasculature are within normal gould its. BONES: No acute findings. HARDWARE: Postoperative findings consistent with prior CABG. There is an intact left subclavian vein approach dual lead transvenous pacemaker in place. OTHER: No other finding. IMPRESSION: No acute cardiopulmonary process. TECHNICAL DOCUMENTATION: JOB ID: [id number] 2010 [employer]- All Rights Reserved Reading location - IP/workstation name: [email or web address]
== END 2019-04-30 13:01 | disposition home or self-care (01) ==
LOC: ER 10:48
DX: J06.9 Acute upper respiratory infection, unspecified (principal); B97.89 Other viral agents as the cause of diseases classified elsewhere; R05 Cough; R09.89 Other specified symptoms and signs involving the circulatory and respiratory systems; M79.10 Myalgia, unspecified site; R07.9 Chest pain, unspecified; J34.89 Other specified disorders of nose and nasal sinuses; R09.81 Nasal congestion; J02.9 Acute pharyngitis, unspecified; R09.82 Postnasal drip; I25.10 Atherosclerotic heart disease of native coronary artery without angina pectoris; I10 Essential (primary) hypertension; E11.9 Type 2 diabetes mellitus without complications
CPT/HCPCS: 71046; 99283